=== PATIENT | female | born 1950 | race Hispanic/Latino ===

== ENCOUNTER 2019-02-26 09:41 | Inpatient (IN) | payer MEDICARE, OTHER ==
[2019-02-26 11:28] VITALS: BMI 13.6
[2019-02-26 11:53] LABS: #Lymphocytes 1.3 thou/uL (1.20-3.40); #Monocytes 0.3 thou/uL (0.11-0.59); #Neutrophils 6.4 thou/uL (1.40-6.50); %Basophils 0.5 % (0.0-1.0); %Eosinophils 0.3 % (0.0-10.0); %Lymphocytes 15.8 % (21.0-51.0); %Monocytes 4.2 % (0.0-10.0); %Neutrophils 79.2 % (42.0-75.0); Hemoglobin 9.1 g/dL (12.0-16.0); Mean Corpuscular HGB CONC 32.7 g/dL (32.0-36.0); Mean Corpuscular Hemoglobin 31.8 pg (27.0-31.0); Mean Corpuscular Volume 97.4 fL (78.0-98.0); Platelet Count 250 thou/uL (130-400); RBC Distribution Width 14.2 % (11.5-14.5); Red Blood Cell (RBC) Count 2.86 mill/uL (4.20-5.40); White Blood Cell (WBC) Count 8.1 thou/uL (4.8-10.8)
[2019-02-26 12:13] LABS: Phosphorus 2.7 mg/dL (2.3-4.7)
[2019-02-26 12:14] LABS: ALT (SGPT) 11 U/L (8-55); AST (SGOT) 49 U/L (5-34); Albumin 2.3 g/dL (3.4-4.8); Alkaline Phosphatase 174 U/L (40-110); Anion Gap 9 mmol/L (10-20); BUN (Urea Nitrogen) 17 mg/dL (9.8-20.1); Bilirubin, Total 0.5 mg/dL (0.2-1.2); Calc. Creatinine Clearance 15 mL/min (70-130); Carbon Dioxide 29 mmol/L (23-31); Chloride 100 mmol/L (98-107); Estimated GFR-MDRD 24; Globulin 4.2 g/dL (2.4-3.5); Glucose 216 mg/dL (80-115); Magnesium 1.8 mg/dL (1.6-2.6); Potassium 3.9 mmol/L (3.5-5.1); Protein, Total 6.5 g/dL (6.0-8.3); Sodium 134 mmol/L (136-145)
[2019-02-26] MEDS ORDERED: Ondansetron ODT 4 MG TAB SL PRN (12:59)
[2019-02-26] MEDS ORDERED: Lactated Ringer's 1,000 ML IV SCH (13:00)
[2019-02-26] MEDS ORDERED: Senokot S 8.6-50 MG TAB PO PRN (13:02)
[2019-02-26 13:09] LABS: Bilirubin Negative (Negative); Blood, Urine Negative (Negative); Clarity Clear (Clear); Glucose, Urine (Dipstick) 30 mg/dL (Negative); Leukocyte 250 Leu/uL (Negative); Nitrite Negative (Negative); Protein, Urine (Dipstick) 30 mg/dL (Neg-Trace); RBC/HPF 0-3 HPF (0-3); Urobilinogen Normal mg/dL (Less than 2)
[2019-02-26 13:13] LABS: Bacteria/HPF 1+ HPF (None Seen)
[2019-02-26 14:41] LABS: Syphilis Antibody Nonreactive (Nonreactive); Syphilis Antibody Index 0.12 S/CO (<1.00 Non-Reactive)
[2019-02-26 14:42] LABS: HBSAB Concentration 3.22 mIU/mL; HBSAg Index 0.12 S/CO (0-0.99); HIV (1/2) Antibody/Antigen Non-Reactive (NonReactive); HIV 1/2 INDEX 0.09 S/CO (<1.00); Hep B Surf AB Non-Reactive (NonReactive); Hep B Surf Ag Non-Reactive S/CO (NonReactive); Hep C IgG Ab Non-Reactive (NonReactive); Hep C Index 0.11 S/CO (0-0.79)
[2019-02-26] MEDS: Famotidine 20 MG TAB PO SCH (14:52)
--- NOTE | 2019-02-26 15:35 | PDOC.EVN ---
Addendum - Attending - Attending Attestation Date/Time: 02/26/19 4542 I personally evaluated the patient and discussed the management with Dr. Hankins I agree with the History, Examination, Assessment and Plan documented in his dictated H&P with any addition or exceptions noted below. In summary, patient is a 68 yo HF with a PMH of adenocarcinoma of the colon s/p colectomy 5 years ago. She states she had a repeat colonoscopy approximately 3 years ago which she states had a small polyp removed. She has not had repeat surveillance since. She also states she had been seen by Dr. No for evaluation of a stomach ulcer. She notes that over the past 2-3 years she has had decreased appetite, early satiety, and had noticed marked weight loss. Review of clinic records show a steady decline in her BMI from 18 in 2016 to 12 on her visit today which prompted her direct admission to the hospital. Of note , she was recently d/c from [facility] within the past few weeks for CAP. On exam, patient is tearful at times. She is cachetic appearing. Exam is otherwise unremarkable. A&P: Admit for severe malnutrition and evaluation of possible causes. Will check CBC, CMP, mag, phos, proalbumin, iron studies, B12, folate and TSH. EKG and TTE ordered. Given hx of GI cancer, CT chest/abd/pelv ordered. contrast not given due to poor renal function. Will also order cancer markers to see if there is an elevation. Pending results of initial evaluation, would consider GI consultation. Wound care and dietary also consulted. Current etiology not clear. Will also start IV fluids since mild volume depletion. Chronic problem management per Dr. Hankins's note.
[2019-02-26] MEDS ORDERED: Dextrose 5% in Water 1,000 ML IV PRN (15:42)
[2019-02-26] MEDS ORDERED: Dextrose 50% Abboject 50 ML SYRINGE SLOW IVP PRN (15:42)
[2019-02-26] MEDS ORDERED: HumaLOG 300 UNITS/3 ML VIAL SC PRN (15:42)
--- NOTE | 2019-02-26 16:10 | CT ---
Exam: Chest CT without contrast Abdomen CT without contrast Pelvic CT without contrast HISTORY: Weight loss.: Colon cancer with known metastases. Evaluate for extent of metastases. COMPARISON: None FINDINGS: Chest CT: Mediastinum: Limited evaluation due to lack of IV contrast. No obvious mass, lymphadenopathy hematoma HEART: No significant pericardial fluid. Scattered coronary calcifications Aorta: Atherosclerosis of a nonaneurysmal thoracic and abdominal aorta Trachea and central bronchi: Patent Pneumothorax: None Pleural spaces: Trace amount of left-sided pleural fluid. Right lung: Ill-defined groundglass opacities which may represent changes from atypical infection. Th ere is a slightly irregular marginated opacity in the right upper lobe which has a somewhat more discrete appearance. Focal area of infiltrate or developing malignancy/metastases cannot be excluded. Lesion measures 0.6 x 1.0 cm. There is a nodule with a peripheral halo groundglass opacification the right upper lobe. Nodule component measures 0.5 x 0.4 centimeters. Left lun.9 x 0.5 cm ill-defined groundglass opacity in the left lung apex. Additional groundglass opacities are noted. Linear opacities in the lingula and left lower lobe may represent subsegmental atelectasis Abdomen CT Limited evaluation of the solid organs by the lack of IV contrast. Grossly no solid organ abnormality Lymph nodes: No gastrohepatic, retrocrural or periportal lymphadenopathy. No evidence of enlarged lym ph nodes in the abdominal mesentery. Evaluation is limited by decreased visceral fat in the lack of IV contrast. Kidneys: Nonobstructing calcifications are noted. Bilaterally no obstructive uropathy. Alimentary canal: No evidence of small bowel obstruction. There is anastomosis of the right hemicolon and small bowel. No evidence of colon obstruction. Pelvic CT: Uterus and adnexal structures are grossly unremarkable. No pelvic mass, lymphadenopathy, f ree air or free fluid. Mild mucosal prominence of the urinary bladder is nonspecific and may be due to inadequate distention . Osseous structures: No lytic or blastic lesions IMPRESSION: Patchy groundglass opacities involving the lung parenchyma likely representing atypical infection. De veloping metastatic nodules cannot be entirely excluded. Correlate clinically. Transcribed Date/Time: 02/26/2019 4:35 PM
[2019-02-26] MEDS ORDERED: hydrALAZINE 20 MG/ML VIAL SLOW IVP SCH (17:30)
[2019-02-26] MEDS: Lactated Ringer's 1,000 ML IV SCH (18:08)
--- NOTE | 2019-02-26 19:27 | HP ---
RESIDENT: Jose Manuel Hankins DO HISTORY OF PRESENT ILLNESS: This is a 68-year-old female, who is seen in clinic with Dr. Nguyen this morning as a hospital followup. The patient was admitted approximately 1 week ago for community-acquired pneumonia and acute kidney injury at the [facility]. The patient was given antibiotics and fluids during her hospitalization and sent home to complete oral antibiotics. At followup, the patient was noted to have lost a significant amount of weight. This is consistent with the trend over the last 1 to 2 years, she has had a considerate amount of weight loss due to decreased p.o. intake. In clinic, BMI was 12. The patient was a direct admit from clinic due to severe malnutrition. She has previous colon cancer, status post total colectomy. Her most recent colonoscopy was approximately [address] No, where there was a polyp removed. The patient thinks that the reason for her decreased oral intake is due to early satiety and bloating. She denies any pain, nausea, vomiting, diarrhea, or blood in her stool. She does admit to black stools, however, she attributes this to her oral iron. The patient denies any syncopal episodes. She does complain of fatigue. PAST MEDICAL HISTORY: 1. CKD 4. 2. Protein-calorie malnutrition. 3. Type 2 diabetes. 4. Hypertension. 5. History of colon cancer, status post hemicolectomy. 6. Major depression. 7. Treated for ulcer approximately 7 months ago. PAST MEDICAL HISTORY: 1. Hemicolectomy. 2. Multiple colonoscopies. 3. EGD. 4. Right hip fracture ORIF in 2019. FAMILY HISTORY: Noncontributory. SOCIAL HISTORY: Denies alcohol, tobacco, or recreational drug use. ALLERGIES: NKDA CURRENT MEDICATION: 1. [place] 5/325 2. Benzonatate 100mg 3. Gabapentin 100 mg 4. Humulin N SSI TID 5. Mertazapine 7.5 mg 6. Lipitor 10mg 7. Tramadol 50 mg 8. Protonix 40 mg 9. FeSO4 325 mg REVIEW OF SYSTEMS: GENERAL: Denies fever or chills. Complains of fatigue. HEENT: Denies headaches, changes in vision, sore throat. CARDIOVASCULAR: Denies palpitations, chest pain. Complains of periodic peripheral edema. RESPIRATORY: Denies shortness of breath or cough. ABDOMEN: Denies nausea, vomiting, diarrhea, or constipation. Complains of black stools at times. Complains of early satiety and bloating with meals. NEUROLOGIC: Denies changes in vision, double vision, weakness, numbness, or tremors. VITAL SIGNS: Temperature 97.7, pulse 100, respiratory rate 16, O2 saturation 100% on room air, and blood pressure 118/67. LABORATORY DATA: Hemoglobin 9.1, hematocrit 27.9, white count 8.1, and platelets 251. Sodium 134, potassium 3.9, chloride 100, bicarb 29, BUN 17, creatinine 2.06, glucose 216, calcium 8.0, phosphorus 2.7, magnesium 1.8, T-bilirubin 5.9, AST 49 , ALT 11, alkaline phosphatase 174, total serum protein 6.5, and albumin 2.3, pre-albumin 16. TSH 2.38. UA shows protein 30, leukocyte esterase 250, wbc's 11 to 20, squamous 4 to 6, and urine bacteria 1+. PHYSICAL EXAMINATION: GENERAL: The patient is alert and oriented, in no acute distress. The patient is emaciated. HEENT: Normocephalic, atraumatic. CARDIOVASCULAR: Tachycardia. No murmur. No peripheral edema. RESPIRATORY: Clear to auscultation bilaterally. No increased work of breathing. ABDOMEN: Nontender. Normal bowel sounds. EXTREMITIES: Normal sensation and strength. No edema. NEUROLOGIC: No focal neurological deficits. ASSESSMENT AND PLAN: This is a 68-year-old female with severe protein-calorie malnutrition. 1. Severe protein-calorie malnutrition. Admit to hospital for observation and workup. Nutrition consult is pending. Prealbumin is low normal. We will have daily weights and full diet. Due to the fact that the patient does eat and has a history of cancer, we will order a CT scan to look for any masses or metastasis from previous colon cancer. Repeat comprehensive metabolic in the morning. Echo pending. Due to issues of early satiety, we will order an Helicobacter pylori stool antigen. 2. Normocytic anemia. Iron studies, B12, and folate pending. The patient appears to be hemodynamically stable. No indication for transfusion at this time. We will trend hemoglobin with morning labs. FOBT pending. 3. Acute kidney injury versus chronic kidney disease. We will have the patient on general IVF and monitor creatinine in the morning. 4. Possible urinary tract infection. The patient is not complaining of any symptoms. We will culture urine and treat if indicated. 5. Type 2 diabetes. The patient is only on sliding scale at home, we will re-initiate here. 6. Code: Full. 7. Diet: Consistent carbohydrate. 8. Prophylaxis: Lovenox and SCDs. 9. Disposition: The patient is currently stable. Length of stay pending further workup. Agree w/ documentation. See my event note for further details. Job ID: [id number] MTDD
[2019-02-26] MEDS: Acetaminophen 325 MG TAB PO PRN (20:48)
[2019-02-26] MEDS: Gabapentin 100 MG CAP PO SCH (20:49)
[2019-02-27] MEDS: Lactated Ringer's 1,000 ML IV SCH (02:41)
[2019-02-27] MEDS: Acetaminophen 325 MG TAB PO PRN ×2 (02:43→20:31)
--- NOTE | 2019-02-27 05:59 | PDOC.FM ---
- Subjective Subjective: Reports diarrhea today after taking oral contrast solution. Denies abdominal pain. Reports no appetite. Denies SOB. - Objective MAR Reviewed: Yes Vital Signs & Weight: Vital Signs (12 hours) Temp Pulse Resp BP BP BP Pulse Ox 02/26/19 23:30 98.5 F 104 H 18 132/82 97 02/26/19 19:54 99.3 F 109 H 18 134/97 H 99 02/26/19 18:23 100 147/82 H 02/26/19 18:00 147/82 H Weight Weight 34.983 kg I&O: 02/25/19 02/26/19 02/27/19 06:59 06:59 06:59 Intake Total 1072 Balance 1072 Result Diagrams: 02/27/19 05:52 03/01/19 11:18 Phys Exam - Physical Examination Constitutional: NAD Thin, curled up in ball in bed. HEENT: moist MMs Neck: supple Respiratory: no wheezing, clear to auscultation bilateral Cardiovascular: RRR, no significant murmur Gastrointestinal: soft, non-tender, positive bowel sounds Musculoskeletal: no edema Neurological: moves all 4 limbs Psychiatric: normal affect, A&O x 3 Deviation from normal: Bruising and exoriations bilateral arms Dx/Plan - Plan Plan: Severe protein calorie malnutrition - Nutrition consulted. Pt may need PEG tube placement. Has seen Dr No in the past. - Requesting records from the MED - Low/normal prealbumin - Daily wts, full diet - CT with infections vs mets - Continue daily labs - Ordered BNP, ESR/CRP - Start Mirtazepine qHS - Will keep track of percentage of meals eaten - Echo ordered - H pylori neg Patchy ground glass nodules on CT - Infection vs mets. Recently treated for pneumonia and hx of colon cancer so either is likely. - Recommend follow up CT in 4 weeks Normocytic Anemia - Iron studies, B12 & folate nml - Ordered peripheral smear, Haptoglobin and LDH - FOBT neg Diarrhea - Likely 2/2 contrast - Checking stool studies - Imodium PRN CKD - Continue IVF, monitor labs - CrCl 14 - Ordered Urine protein/Cr - Consulted Dr Bird, nephrology. Apprec recs Possible UTI - Awaiting culture prior to tx DMII - SSI, full diet due to malnutrition Hx of Colon Cancer - Requested records from the MED for most recent CEA/tumor markers Code Status: FULL DVT ppx: Lovenox Addendum - Attending - Attending Attestation Date/Time: 02/27/19 1022 I personally evaluated the patient and discussed the management with Dr. Alvarez I agree with the History, Examination, Assessment and Plan documented above with any addition or exceptions noted below. HD#1 Patient now with diarrhea after contrast media. Imaging reviewed. Workup pending for failure to thrive. Appears to be related to poor caloric intake. Patient also appears to have a mood disorder. Infectious workup negative. Inflammatory markers added to make sure not related to vasculitis. Need records from GI. Patient has been scoped multiple times. Discussed concern for poor intake. Will continue to monitor portions and caloric intake. Will start appetite stimulate. Need to continue to address possible need for external nutrition - PEG Patient needs rehab or SNIF. not likely able to continue to manage at home. Need to follow up to help with dispo planning. Rebeca
[2019-02-27 06:08] LABS: #Basophils 0.1 thou/uL (0.0-0.2); #Eosinphils 0.2 thou/uL (0.0-0.7); #Lymphocytes 2.5 thou/uL (1.20-3.40); #Monocytes 0.4 thou/uL (0.11-0.59); #Neutrophils 4.4 thou/uL (1.40-6.50); %Basophils 1.3 % (0.0-1.0); %Lymphocytes 32.4 % (21.0-51.0); %Monocytes 5.2 % (0.0-10.0); Hemoglobin 7.8 g/dL (12.0-16.0); Mean Corpuscular Hemoglobin 32.1 pg (27.0-31.0); Mean Corpuscular Volume 97.4 fL (78.0-98.0); Mean Platelet Volume 9.3 fL (7.4-10.4); Platelet Count 202 thou/uL (130-400); RBC Distribution Width 14.1 % (11.5-14.5); Red Blood Cell (RBC) Count 2.44 mill/uL (4.20-5.40); White Blood Cell (WBC) Count 7.5 thou/uL (4.8-10.8)
[2019-02-27 06:31] LABS: ALT (SGPT) 9 U/L (8-55); AST (SGOT) 34 U/L (5-34); Albumin 1.9 g/dL (3.4-4.8); Alkaline Phosphatase 142 U/L (40-110); Anion Gap 8 mmol/L (10-20); BUN (Urea Nitrogen) 14 mg/dL (9.8-20.1); Bilirubin, Total 0.3 mg/dL (0.2-1.2); Calc. Creatinine Clearance 15 mL/min (70-130); Calcium 7.6 mg/dL (7.8-10.44); Carbon Dioxide 28 mmol/L (23-31); Chloride 103 mmol/L (98-107); Estimated GFR-MDRD 24; Globulin 3.5 g/dL (2.4-3.5); Glucose 168 mg/dL (80-115); Iron 81 ug/dL (50-170); Iron Binding Capacity, Total 74 mcg/dL (265-497); Protein, Total 5.4 g/dL (6.0-8.3); Sodium 135 mmol/L (136-145)
[2019-02-27 06:56] LABS: Ferritin 258.27 ng/mL (10-291)
[2019-02-27 07:59] LABS: Band 3 % (5-11); Lymphocytes 39 % (21-51)
[2019-02-27 08:00] LABS: Platelet Morphology Comment Appears Adequate; Polychromasia SLIGHT = 2-3 cells (100X) (0-2/hpf)
[2019-02-27] MEDS: Gabapentin 100 MG CAP PO SCH ×3 (09:10→20:32)
[2019-02-27] MEDS ORDERED: Loperamide HCl 1 MG/7.5 ML UDCUP PO PRN (12:21)
[2019-02-27] MEDS ORDERED: Loperamide HCl 2 MG CAP PO PRN (12:27)
--- NOTE | 2019-02-27 12:37 | CON ---
DATE OF CONSULTATION: REASON FOR CONSULTATION: Chronic kidney disease. HISTORY OF PRESENT ILLNESS: This is a very pleasant 68-year-old female with a baseline creatinine 1.39 in 2016, which increased to 2.05 this admission. The patient was admitted yesterday for protein calorie malnutrition. The patient has been losing weight. The patient had a CAT scan of the chest, abdomen, and pelvis without contrast. No obstructive uropathy was seen. PAST MEDICAL HISTORY: Significant for CKD stage 4, protein calorie malnutrition, diabetes mellitus, hypertension, history of colon cancer, hemicolectomy, depression, history of multiple colonoscopy, EGD, history of kidney stones, and history of right hip fracture. FAMILY HISTORY: Negative for ESRD. ALLERGIES: REVIEWED. HOME MEDICATIONS: List reviewed. HOSPITAL MEDICATIONS: List reviewed. REVIEW OF SYSTEMS: A 15-point review of system was performed and negative except for positives noted above. GENERAL: HEAD: NECK: No swelling or lumps. NOSE: No epistaxis or discharge. EYES: No diplopia or pain. RESPIRATORY: CARDIOVASCULAR: GASTROINTESTINAL: /SPEECH/LANGUAGE THERAPIST: MUSCULOSKELETAL: No joint pain. NEUROPSYCHIATIC SYSTEMS: No suicidal ideation. No ideation. SKIN: Denies any rash or ulcer. CONSTITUTIONAL: No fever or chills. PHYSICAL EXAMINATION: CONSTITUTIONAL: The patient is awake and alert. VITAL SIGNS: Afebrile, pulse 75, breathing 16, and blood pressure was 145/97. GENERAL APPEARANCE AND MENTAL STATUS: Fair. HEAD/NECK: Normocephalic. Atraumatic. EYES: EOMI. No deformity. EARS: Clear. No ulcers. NOSE: Intact. No lesions. MOUTH: Clear. No discharge. THROAT: Clear. No exudate. LUNGS: Clear. No crackles. CARDIAC: S1, S2. No rub. ABDOMEN: Benign. Bowel sounds positive. GENITALIA/RECTUM: Mcnamara absent. BACK/EXTREMITIES: Edema 0+. NEUROLOGICAL: Alert and motor intact. SKIN: LYMPHATICS: LABORATORY DATA: Labs reviewed. ASSESSMENT AND PLAN: 1. Acute kidney injury with chronic kidney disease stage 4, could be chronic hypertensive nephrosclerosis versus diabetic nephropathy. We will follow renal function closely. The patient does have a history of nephrolithiasis, so she did have some sort of concentrating issues within kidney, would recommend hydration. 2. Anemia, would recommend Epogen therapy. 3. Medications based on GFR appropriate, I will order a 24-hour urine creatinine clearance. 4. Hypertension, stable. Job ID: [id number]
[2019-02-27 13:16] LABS: Anion Gap 10 mmol/L (10-20); BUN (Urea Nitrogen) 16 mg/dL (9.8-20.1); Calc. Creatinine Clearance 15 mL/min (70-130); Carbon Dioxide 27 mmol/L (23-31); Chloride 100 mmol/L (98-107); Estimated GFR-MDRD 25; Glucose 284 mg/dL (80-115); Magnesium 1.7 mg/dL (1.6-2.6); Potassium 4.1 mmol/L (3.5-5.1); Sodium 133 mmol/L (136-145)
[2019-02-27] MEDS: Potassium Chloride 10 MEQ in Dextrose 5%-Lactated Ringers 1,000 ML IV SCH ×2 (15:27→20:34)
[2019-02-27] MEDS: Famotidine 20 MG TAB PO SCH (15:31)
[2019-02-27] MEDS: Mirtazapine 15 MG Soltab PO SCH (20:32)
[2019-02-28 00:39] LABS: Creatinine, Urine Less than 20.00 mg/dL (47-110); Protein, Urine Random Quant 15 mg/dL (1-14)
[2019-02-28] MEDS: Potassium Chloride 10 MEQ in Dextrose 5%-Lactated Ringers 1,000 ML IV SCH (00:42)
[2019-02-28] MEDS: HumaLOG 300 UNITS/3 ML VIAL SC PRN ×2 (05:24→16:41)
[2019-02-28] MEDS: Lactated Ringer's 1,000 ML IV SCH ×2 (05:24→14:37)
--- NOTE | 2019-02-28 08:07 | PDOC.FM ---
- Subjective Subjective: Doing well. Diarrhea has resolved. Denies abdominal pain, nausea. - Objective MAR Reviewed: Yes Vital Signs & Weight: Vital Signs (12 hours) Temp Pulse Resp BP BP Pulse Ox 02/28/19 07:56 97.9 F 99 12 115/71 96 02/28/19 05:20 98.2 F 102 H 18 141/79 H 98 02/28/19 00:12 98.5 F 101 H 18 134/77 96 02/27/19 20:30 158/88 H 98 02/27/19 20:15 98.2 F 105 H 19 98 Weight Admit Weight 34.983 kg Weight 34.983 kg I&O: 02/27/19 02/28/19 03/01/19 06:59 06:59 06:59 Intake Total 1072 2250 Balance 1072 2250 Result Diagrams: 02/27/19 05:52 03/01/19 11:18 Dx/Plan - Plan Plan: Severe protein calorie malnutrition - Nutrition consulted, recommends CC diet 1500cal, renal low protein with Suplena BID. Pt may need PEG tube placement. Has seen Dr No in the past. - Requested records from the MED - Low/normal prealbumin. BNP, ESR/CRP normal. CT with infections vs mets. H pylori neg - Daily wts, full diet, Continue daily labs - Continue Mirtazepine qHS - Will keep track of percentage of meals eaten - Echo: 60-65%, diastolic dysfunction Patchy ground glass nodules on CT - Infection vs mets. Recently treated for pneumonia and hx of colon cancer so either is likely. - Recommend follow up CT in 4 weeks Normocytic Anemia - Iron studies, B12, LDH & folate nml - FOBT neg - Nephrology rec Epogen Diarrhea - Likely 2/2 contrast - C diff neg, other stool studies pending - Imodium PRN CKD - Continue IVF, monitor labs - CrCl 14. Urine protein 15. Cr <20 - Consulted Dr Bird, nephrology. Apprec recs - Diet renal low protein Possible UTI - Awaiting culture prior to tx DMII - SSI, CC diet 1500cal Hx of Colon Cancer - Requested records from the MED for most recent CEA/tumor markers Code Status: FULL DVT ppx: Lovenox Addendum - Attending - Attending Attestation Date/Time: 02/28/19 1027 I personally evaluated the patient and discussed the management with Dr. Alvarez I agree with the History, Examination, Assessment and Plan documented above with any addition or exceptions noted below. HD#2 No acute changes overnight. Still very aggravated -concerned mental illness contributing. No longer having diarrhea. Minimal oral food intake. Nutrition following. Continue medication. Inflammatory and infectious causes negative. Awaiting dispo planning. Patient would benefit from inpatient. Follow closely. Rebeca
[2019-02-28] MEDS: Gabapentin 100 MG CAP PO SCH ×3 (08:43→20:45)
[2019-02-28] MEDS: Acetaminophen 325 MG TAB PO PRN ×2 (10:19→20:56)
[2019-02-28 11:04] LABS: Anion Gap 10 mmol/L (10-20); BUN (Urea Nitrogen) 16 mg/dL (9.8-20.1); Calc. Creatinine Clearance 16 mL/min (70-130); Calcium 7.9 mg/dL (7.8-10.44); Carbon Dioxide 26 mmol/L (23-31); Chloride 106 mmol/L (98-107); Estimated GFR-MDRD 27; Glucose 183 mg/dL (80-115); Potassium 4.1 mmol/L (3.5-5.1); Sodium 138 mmol/L (136-145)
[2019-02-28] MEDS: Famotidine 20 MG TAB PO SCH (14:24)
--- NOTE | 2019-02-28 15:07 | PRG ---
DATE OF SERVICE: 02/28/2019 SUBJECTIVE: This is a 68-year-old female being seen for acute kidney injury. The patient denied nausea, vomiting, or chest pain. OBJECTIVE: See above. CONSTITUTIONAL: Awake, alert, in no acute distress. VITAL SIGNS: Pulse 99, breathing 16, blood pressure 115/71. GENERAL APPEARANCE AND MENTAL STATUS: Fair. HEAD/NECK: Normocephalic. Atraumatic. EYES: EOMI. No deformity. EARS: Clear. No ulcers. NOSE: Intact. No lesions. MOUTH: Clear. No discharge. THROAT: Clear. No exudate. LUNGS: Clear. No crackles. CARDIAC: S1, S2. No rub. ABDOMEN: Benign. Bowel sounds positive. GENITALIA/RECTUM: Mcnamara absent. BACK/EXTREMITIES: Edema 0+. NEUROLOGICAL: Alert and motor intact. SKIN: LYMPHATICS: LABORATORY DATA: Reviewed. ASSESSMENT AND PLAN: 1. Acute kidney injury with chronic kidney disease, improved. 2. Hypertension, stable. 3. Anemia, stable. 4. Medication based on GFR appropriate. No indication for dialysis. Job ID: [id number]
[2019-02-28] MEDS ORDERED: EPOETIN ALFA-EPBX (ESRD) 10,000 UNIT/ML VIAL IVP SCH (18:15)
[2019-02-28] MEDS: Loperamide HCl 2 MG CAP PO PRN (20:45)
[2019-02-28] MEDS: Mirtazapine 15 MG Soltab PO SCH (20:45)
[2019-03-01] MEDS: Loperamide HCl 2 MG CAP PO PRN ×2 (01:15→05:25)
[2019-03-01] MEDS: Lactated Ringer's 1,000 ML IV SCH (01:16)
--- NOTE | 2019-03-01 06:21 | PDOC.FM ---
- Subjective Subjective: No overnight events. Reports she did not sleep well. Reports constipation. Ate 25% of breakfast, 75% of lunch, and 50% of dinner yesterday. - Objective MAR Reviewed: Yes Vital Signs & Weight: Vital Signs (12 hours) Temp Pulse Resp BP Pulse Ox 03/01/19 04:00 98.0 F 102 H 16 135/77 99 03/01/19 00:41 98.4 F 105 H 16 127/79 98 02/28/19 21:17 98.8 F 107 H 16 131/72 98 Weight Admit Weight 34.983 kg Weight 34.983 kg I&O: 02/27/19 02/28/19 03/01/19 06:59 06:59 06:59 Intake Total 1072 2250 1680 Balance 1072 2250 1680 Result Diagrams: 02/27/19 05:52 02/28/19 10:31 Phys Exam - Physical Examination Constitutional: NAD thin HEENT: moist MMs Neck: supple Respiratory: no wheezing, clear to auscultation bilateral Cardiovascular: RRR Gastrointestinal: soft, non-tender, positive bowel sounds Musculoskeletal: no edema Neurological: moves all 4 limbs Psychiatric: normal affect, A&O x 3 Skin: no rash Dx/Plan - Plan Plan: Severe protein calorie malnutrition - Nutrition consulted, recommends CC diet 1500cal, renal low protein with Suplena BID. Pt may need PEG tube placement. Has seen Dr No in the past. - Requested records from the MED - Low/normal prealbumin. BNP, ESR/CRP normal. CT with infections vs mets. H pylori neg - Daily wts, full diet, Continue daily labs - Continue Mirtazepine qHS, Megace - Echo: 60-65%, diastolic dysfunction Patchy ground glass nodules on CT - Infection vs mets. Recently treated for pneumonia and hx of colon cancer so either is likely. - Recommend follow up CT in 4 weeks Normocytic Anemia - Iron studies, B12, LDH & folate nml - FOBT neg - Nephrology rec Epogen Diarrhea - Likely 2/2 contrast - Stool studies neg - Imodium PRN KIANA on CKD - Urine protein 15. Cr <20 - Consulted Dr Bird, nephrology. Apprec recs - Diet renal low protein - Continue to monitor Possible UTI - Awaiting culture prior to tx DMII - SSI, CC diet 1500cal Hx of Colon Cancer - Requested records from the [facility] for most recent CEA/tumor markers Code Status: FULL DVT ppx: Lovenox
[2019-03-01] MEDS: Gabapentin 100 MG CAP PO SCH ×2 (08:42→14:34)
[2019-03-01] MEDS ORDERED: Insulin Glargine 10 UNITS in Pre-Filled Syringe 1 EACH SC SCH (09:00)
[2019-03-01] MEDS ORDERED: Megestrol Acetate 40 MG TAB PO SCH (09:00)
[2019-03-01 11:49] LABS: Anion Gap 10 mmol/L (10-20); BUN (Urea Nitrogen) 16 mg/dL (9.8-20.1); Calc. Creatinine Clearance 15 mL/min (70-130); Calcium 7.4 mg/dL (7.8-10.44); Carbon Dioxide 24 mmol/L (23-31); Chloride 108 mmol/L (98-107); Estimated GFR-MDRD 25; Glucose 211 mg/dL (80-115); Potassium 4.6 mmol/L (3.5-5.1); Sodium 137 mmol/L (136-145)
--- NOTE | 2019-03-01 12:01 | PRG ---
DATE OF SERVICE: 03/01/2019 SUBJECTIVE: This is a 68-year-old female being seen for acute kidney injury. The patient denies nausea, vomiting, or chest pain. OBJECTIVE: CONSTITUTIONAL: The patient is awake. VITAL SIGNS: Afebrile, pulse 88, breathing 16, blood pressure 135/77. GENERAL APPEARANCE AND MENTAL STATUS: Fair. HEAD/NECK: Normocephalic. Atraumatic. EYES: EOMI. No deformity. EARS: Clear. No ulcers. NOSE: Intact. No lesions. MOUTH: Clear. No discharge. THROAT: Clear. No exudate. LUNGS: Clear. No crackles. CARDIAC: S1, S2. No rub. ABDOMEN: Benign. Bowel sounds positive. GENITALIA/RECTUM: Mcnamara absent. BACK/EXTREMITIES: Edema 0+. NEUROLOGICAL: Alert and motor intact. SKIN: LYMPHATICS: LABORATORY DATA: Pending. ASSESSMENT AND PLAN: 1. Acute kidney injury with chronic kidney disease, stage 4, stable. Recheck labs. 2. Hypertension, stable. 3. Anemia, stable. 4. Acute tubular necrosis, improved. Job ID: [id number]
[2019-03-01] MEDS: HumaLOG 300 UNITS/3 ML VIAL SC PRN (13:01)
[2019-03-01] MEDS: Famotidine 20 MG TAB PO SCH (14:34)
--- NOTE | 2019-03-01 14:37 | PRG ---
DATE OF SERVICE: 03/01/2019 Please see the note from Dr. Alvarez, for which I agree. The patient is in the hospital for severe malnutrition, still a lot of weight loss, was not eating, has diabetes, major depression, and history of colon cancer. BMI was low as 13 at one point in time. Questionable on CT if she has some patchy ground nodules, infections versus METs. Now is on Megace and Remeron, and it sounds like she is eating a little bit better. I am keeping her on sliding scale insulin. Renal is involved too because her creatinine is elevated and low GFR. Job ID: [id number]
[2019-03-01 16:19] VITALS: BP 156/89; TEMP 97.6
--- NOTE | 2019-03-01 17:03 | DIS ---
DATE OF ADMISSION: 02/26/2019 DATE OF DISCHARGE: 03/01/2019 RESIDENT: Geovanna Alvarez, PGY-1. ADMITTING ATTENDING: Nahid Joshua MD. DISCHARGE ATTENDING: Charo Mathis MD. CONSULT: Pulmonology. PROCEDURE: 1. Her chest, abdominal, pelvis CT on 02/26/2019, patchy ground-glass opacities involving lung parenchyma likely representing atypical infection. Developing metastatic nodules cannot be entirely excluded. 2. Echocardiogram 02/27/2019, EF 60% to 65% grade 1/3 diastolic dysfunction. Mitral annular calcification. Mild mitral and tricuspid regurgitation. PRIMARY DIAGNOSES: 1. Severe protein calorie malnutrition. 2. Patchy ground-glass nodules on CT. 3. Normocytic anemia. 4. CKD. SECONDARY DIAGNOSES: 1. Diarrhea. 2. Type 2 diabetes. 3. History of colon cancer. DISCHARGE MEDICATIONS: 1. Epoetin bernadette-epbx 46247 units twice weekly. 2. Pepcid 20 mg one daily. 3. Neurontin 100 mg t.i.d. 4. Loperamide q.4 hours p.r.n. 5. Megace 40 mg daily. 6. Mirtazapine 15 mg at bedtime. 7. Zofran 4 mg q.6 hours p.r.n. 8. Senokot 2 tablets b.i.d. p.r.n. 9. Lantus 10 units daily. New medication; 1. Gabapentin 100 mg t.i.d. HISTORY OF PRESENT ILLNESS/HOSPITAL COURSE: Ms. Mann is a 68-year-old female with past medical history of colon cancer and type 2 diabetes, who was a direct admit by Dr. Nguyen at [facility]. She was recently admitted to the [facility] approximately a week prior for community-acquired pneumonia and KIANA. She was treated with antibiotics and IV fluids during hospitalization, sent home to complete oral antibiotics and had Followup. The patient was noted to have lost a significant amount of weight with a BMI of 12. Over the last 1 to 2 years, her weight has slowly trended down due to lack of appetite. She has a history of colectomy. The most recent colonoscopy [address] No with a polyp removed. No reported symptoms of early satiety or bloating. Labs at admission, notable for hemoglobin 9.1, creatinine 2.06. Creatinine clearance by Cockcroft Gault calculator 14. UA with protein 30, leukocyte esterase 250, white blood cells 11-20, squamous 4-60 , and 1+ bacteria. Urine culture was positive for Klebsiella and Enterobacter but only 25,000-50,000 cfu/ml therefore this was not treated as she was asymptomatic. In regard to her severe protein calorie malnutrition, dietitian was consulted who recommended carb consistent 1500 calorie diet with Suplena b.i.d. for supplementation. The patient reports drinking Muscle Milk at home and enjoys drinking any shakes. However, it is recommended the patient be on a low-protein diet due to her kidney function. A CT scan obtained to look for metastases from prior colon cancer and was found to have atypical pneumonia versus mets in the lung. This was discussed with the radiologist, who recommended a followup CT scan in 4 weeks. She had a [id number] pre-albumin, normal BNP, ESR, CRP, and negative H pylori. She was started on Megace and mirtazapine. Echo showed 60% to 65% EF with 1/3 diastolic dysfunction. Discussed possibility of PEG tube with the patient and she would not want a PEG tube. In regard to normocytic anemia, iron studies, B12, LDH, folate were normal. FOBT was negative. Nephrology was consulted, who [place] [address] units twice a week. Peripheral smear showed normocytic normochromatic anemia. Haptoglobin less than 10. In regard to the patient's KIANA on CKD, she did have some improvement in kidney function with IV fluids. Initial creatinine 2.06, discharge creatinine 1.98, but her creatinine clearance by Cockcroft Gault was only 14. As stated prior, Dr. Bird was consulted, who recommended low-protein diet and Procrit and close monitoring of renal function. She will need to follow up with a machine repairer maintenance outpatient. The patient did experience some diarrhea during hospitalization. Stool studies were negative and this is likely secondary to the oral contrast she consumed for CT scan. This was treated with Imodium as needed. She does have type 2 diabetes, sliding scale insulin was used. However, blood sugars were still uncontrolled, so she was started on Lantus 10 units daily. The patient was on glipizide at home; however, she was not treated with glipizide during hospitalization. With her history of colon cancer, we requested records from the [facility], but did not receive them prior to discharge of her CEA tumor markers. DISPOSITION: Stable. DISCHARGE INSTRUCTIONS: 1. Location: [facility]. 2. Diet: Carb consistent 1500 calorie with renal low-protein. Suplena b.i.d. 3. Activity: No restrictions. 4. Followup: Follow up with PCP, Dr. Nguyen, after discharge from rehab. Job ID: [id number] MTDD
--- NOTE | 2019-03-04 10:13 | EKG ---
Test Reason : Blood Pressure : / mmHG Vent. Rate : 114 BPM Atrial Rate : 114 BPM P-R Int : 138 ms QRS Dur : 074 ms QT Int : 356 ms P-R-T Axes : 075 -14 075 degrees QTc Int : 490 ms Sinus tachycardia Low voltage QRS Septal infarct (cited on or before 27-JUL-1994) Cannot rule out Inferior infarct , age undetermined Abnormal ECG Confirmed by WEN CHEN MD ([id number]) on 03/04/2019 10:12:45 AM Referred By: NICKOLAS Confirmed By:WEN CHEN MD
[2019-03-04] MEDS ORDERED: EPOETIN ALFA-EPBX (ESRD) 10,000 UNIT/ML VIAL IVP SCH (12:00)
[2019-03-04] MEDS ORDERED: EPOETIN ALFA-EPBX (ESRD) 10,000 UNIT/ML VIAL SC SCH (12:00)
== END 2019-03-01 17:19 | DRG 682 ==
LOC: 2SE 09:58 → T4-B 02-27 10:58
PROVIDERS: ADMIT Family Medicine; ATTEND Family Medicine
DX: N17.0 Acute kidney failure with tubular necrosis (principal); E43 Unspecified severe protein-calorie malnutrition; K52.1 Toxic gastroenteritis and colitis; Z68.1 Body mass index [BMI] 19.9 or less, adult; N18.4 Chronic kidney disease, stage 4 (severe); R91.1 Solitary pulmonary nodule; E11.65 Type 2 diabetes mellitus with hyperglycemia; F32.9 Major depressive disorder, single episode, unspecified; I12.9 Hypertensive chronic kidney disease with stage 1 through stage 4 chronic kidney disease, or unspecified chronic kidney disease; E11.22 Type 2 diabetes mellitus with diabetic chronic kidney disease; D63.1 Anemia in chronic kidney disease; T50.8X5A Adverse effect of diagnostic agents, initial encounter; Z79.899 Other long term (current) drug therapy; Z79.4 Long term (current) use of insulin; Z85.038 Personal history of other malignant neoplasm of large intestine
CPT/HCPCS: 36415; 36416; 71250; 74177; 80048; 80053; 82274; 82570; 82575; 82607; 82728; 82746; 83010; 83540; 83550; 83615; 83735; 83880; 84100; 84134; 84156; 84443; 85025; 85060; 85652; 86140; 86706; 86780; 86803; 87045; 87046; 87077; 87086; 87186; 87324; 87338; 87340; 87389; 87427; 87449; 93005; 93010; 93306; J1815; J3480; J7121; Q5105; S0179

== ENCOUNTER 2019-03-03 01:31 | Inpatient (IN) | payer MEDICARE, OTHER ==
[2019-03-03 02:41] LABS: Bacteria/HPF 3+ HPF (None Seen); Bilirubin Negative (Negative); Blood, Urine Negative (Negative); Clarity Turbid (Clear); Glucose, Urine (Dipstick) Normal (Negative); Leukocyte 250 Leu/uL (Negative); Nitrite Negative (Negative); Protein, Urine (Dipstick) 10 mg/dL (Neg-Trace); Squamous Epithelial 0-3 HPF (0-3); Urobilinogen Normal mg/dL (Less than 2); WBC/HPF 21-50 HPF (0-3); Yeast-Budding 1+ HPF (None Seen)
[2019-03-03 02:42] LABS: RBC/HPF 0-3 HPF (0-3)
[2019-03-03 03:02] LABS: Hemoglobin 8.2 g/dL (12.0-16.0); Mean Corpuscular HGB CONC 30.8 g/dL (32.0-36.0); Mean Corpuscular Hemoglobin 30.4 pg (27.0-31.0); Mean Platelet Volume 9.3 fL (7.4-10.4); Platelet Count 265 thou/uL (130-400); RBC Distribution Width 14.5 % (11.5-14.5); Red Blood Cell (RBC) Count 2.69 mill/uL (4.20-5.40); White Blood Cell (WBC) Count 20.3 thou/uL (4.8-10.8)
[2019-03-03] MEDS ORDERED: cloNIDine 0.1 MG TAB ONE (03:19)
[2019-03-03] MEDS ORDERED: Cefepime 2 GM VIAL ONE (03:19)
[2019-03-03 03:21] LABS: ALT (SGPT) 10 U/L (8-55); AST (SGOT) 20 U/L (5-34); Alkaline Phosphatase 115 U/L (40-110); Anion Gap 12 mmol/L (10-20); BUN (Urea Nitrogen) 24 mg/dL (9.8-20.1); Bilirubin, Total 0.2 mg/dL (0.2-1.2); Calc. Creatinine Clearance 0 mL/min (70-130); Calcium 7.2 mg/dL (7.8-10.44); Carbon Dioxide 23 mmol/L (23-31); Chloride 105 mmol/L (98-107); Estimated GFR-MDRD 20; Globulin 3.5 g/dL (2.4-3.5); Glucose 105 mg/dL (80-115); Magnesium 1.4 mg/dL (1.6-2.6); Potassium 5.2 mmol/L (3.5-5.1); Protein, Total 5.5 g/dL (6.0-8.3); Sodium 135 mmol/L (136-145)
[2019-03-03 03:47] LABS: Band 3 % (5-11); Lymphocytes 12 % (21-51); MDiff Complete? YES; Monocytes 2 % (0-10); Neutrophil 83 % (42-75)
--- NOTE | 2019-03-03 04:51 | PDOC.FPRHP ---
- History of Present Illness Chief Complaint: fall and confusion History of Present Illness: 68 y/o F with a pmhx of colon ca, DM II, normocytic anemia, and recent hospitalization for pneumonia and severe protein calorie malnutrition. Pt was discharged to [facility] recently. Overnight she was found down with report given to us of her being confused. Pt states she did not hurt anything, and denies any pain, HENLEY, or current confusion. She states she was trying to get up to urinate, and had trouble with her strength to do so. Pt denies any hematuria, dysuria, hesitancy, frequency or urge. Pt reports continued diarrhea since her discharge from the hospital that worsened yesterday morning. Denies N/V/Abd pain. Denies CP, cough, SOB. Pt's urine culture from recent Hx was + for Klebsiella and Enterobacter. UA shows evidence of Acute UTI. Pt was tachycardic rate in 120's upon ED evaluation. - Allergies/Adverse Reactions Allergies Allergy/AdvReac Type Severity Reaction Status Date / Time No Known Drug Allergies Allergy Verified 02/26/19 12:58 - Home Medications Medication Instructions Recorded Confirmed Type Benzonatate 100 mg PO Q8HR PRN 02/27/19 03/03/19 History Magnesium Oxide [Mag-Oxide] 400 mg PO DAILY 02/27/19 03/03/19 History Gabapentin [Neurontin] 100 mg PO TID cap 03/01/19 03/03/19 Rx Loperamide HCl [Imodium] 2 mg PO Q4H PRN cap 03/01/19 03/03/19 Rx Megestrol Acetate [Megace] 40 mg PO DAILY tab 03/01/19 03/03/19 Rx Mirtazapine [Remeron Soltab] 15 mg PO HS tab 03/01/19 03/03/19 Rx Sennosides/Docusate Sodium 2 tab PO BID PRN tab 03/01/19 03/03/19 Rx [Senokot S] Acetaminophen 325 mg PO Q4H PRN 03/03/19 03/03/19 History Acetaminophen 650 mg PO Q4H PRN 03/03/19 03/03/19 History Cefepime [Maxipime] 1 gm IVPB 0300 vial 03/03/19 Rx Darbepoetin Hitesh in Polysorbat 60 mcg SC Q7D 03/03/19 03/03/19 History [Aranesp] Famotidine [Pepcid] 20 mg PO Q24HR tab 03/03/19 Rx Fluconazole [Diflucan] 100 mg PO DAILY tab 03/03/19 Rx Insulin Glargine [Lantus Vial] 5 units SC QAM vial 03/03/19 Rx Polyethylene Glycol 3350 17 gm PO DAILY 03/03/19 03/03/19 History - History PMHx: Colon CA, Insulin Dependent DM II, CKD stage 4, Protein-calorie malnutrition, HTN, MDD, PUD PSHx: hemicolectomy, ORIF R hip 2019. FHx: non-contributory Social: drinks 1-2 glasses of wine a couple of times a week. Denies current tobacco use, quit smoking "years ago." Denies illicit drug use. - Review of Systems General: reports: fatigue. denies: fever/chills Eyes: denies: eye pain, vision changes ENT: denies: nasal congestion, rhinorrhea Respiratory: denies: cough, shortness of breath, exercise intolerance Cardiovascular: denies: chest pain, palpitation, edema Gastrointestinal: reports: diarrhea. denies: nausea, vomiting, constipation, abdominal pain, GI bleeding Genitourinary: denies: incontinence, dysuria, polyuria, discharge Skin: denies: rashes, lesions, jaundice Musculoskeletal: denies: pain, swelling Neurological: reports: weakness. denies: syncope - Vital signs BP: 124/74 HR: 119 RR: 18 Tmax: 98.9 Pox: 98%% on RA Wt: 45.36 kg - Physical Exam Constitutional: NAD, awake, alert and oriented -Constitutional: cachectic HEENT: normocephalic and atraumatic, PERRLA, EOMI, conjunctiva clear, no scleral icterus, grossly normal vision, grossly normal hearing, MMM, oropharynx clear Neck: supple, FROM, trachea midline, no JVD Heart: pulses present, no edema -Heart: Tachycardic, S3 present. Lungs: CTAB, no respiratory distress, good air movement, no rales/rhonchi, no wheezing, no retractions Abdomen: soft, non-tender, bowel sounds present, no masses/distention, no hernias Musculoskeletal: ROM grossly normal -Musculoskeletal: atrophic major muscle groups. Neurological: no focal deficit, normal sensation Skin: no rash/lesions, good turgor, capillary refill <2 seconds, no jaundice -Skin: pale skin. Heme/Lymphatic: no unusual bruising or bleeding, no purpura, no petechia -Psychiatric: Pt tearful on exam. FMR H&P: Results - Labs Result Diagrams: 03/03/19 02:47 03/03/19 02:46 Lab results: WBC 20.3 thou/uL (4.8-10.8) H 03/03/19 02:47 Hgb 8.2 g/dL (12.0-16.0) L 03/03/19 02:47 Hct 26.6 % (36.0-47.0) L 03/03/19 02:47 MCV 99.0 fL (78.0-98.0) H 03/03/19 02:47 Plt Count 265 thou/uL (130-400) 03/03/19 02:47 Band Neuts % (Manual) 3 % (5-11) L 03/03/19 02:47 Sodium 135 mmol/L (136-145) L 03/03/19 02:46 Potassium 5.2 mmol/L (3.5-5.1) H 03/03/19 02:46 Chloride 105 mmol/L (98-107) 03/03/19 02:46 Carbon Dioxide 23 mmol/L (23-31) 03/03/19 02:46 BUN 24 mg/dL (9.8-20.1) H 03/03/19 02:46 Creatinine 2.43 mg/dL (0.6-1.1) H 03/03/19 02:46 Glucose 105 mg/dL (80-115) 03/03/19 02:46 Lactic Acid 2.4 mmol/L (0.5-2.2) H 03/03/19 02:47 Calcium 7.2 mg/dL (7.8-10.44) L 03/03/19 02:46 Total Bilirubin 0.2 mg/dL (0.2-1.2) 03/03/19 02:46 AST 20 U/L (5-34) 03/03/19 02:46 ALT 10 U/L (8-55) 03/03/19 02:46 Alkaline Phosphatase 115 U/L (40-110) H 03/03/19 02:46 Ammonia 29 umol/L (18-72) 03/03/19 02:48 Serum Total Protein 5.5 g/dL (6.0-8.3) L 03/03/19 02:46 Albumin 2.0 g/dL (3.4-4.8) L 03/03/19 02:46 Urine Ketones Negative mg/dL (Negative) 03/03/19 02:05 Urine Blood Negative (Negative) 03/03/19 02:05 Urine Nitrite Negative (Negative) 03/03/19 02:05 Ur Leukocyte Esterase 250 Kristina/uL (Negative) A 03/03/19 02:05 Urine RBC 0-3 HPF (0-3) 03/03/19 02:05 Urine WBC 21-50 HPF (0-3) A 03/03/19 02:05 Ur Squamous Epith Cells 0-3 HPF (0-3) 03/03/19 02:05 Urine Bacteria 3+ HPF (None Seen) A 03/03/19 02:05 Microbiology 03/03/19 02:37 Nasal swab Influenza Types A,B Direct EIA - Final neg 02/28/19 16:00 Stool Stool Culture - Final neg 02/28/19 16:00 Stool Campylobacter Antigen Assay - Final neg 02/28/19 16:00 Stool Shiga Toxin Test - Final neg 02/27/19 06:26 Stool Stool Occult Blood (KHOI) - Final neg 02/27/19 06:22 Stool Helicobacter pylori Antigen - Final neg 02/27/19 06:22 Stool C. difficile GDH Antigen & Toxins - Final neg 02/26/19 12:50 Urine clean catch Urine Culture - Final: Klebsiella pneumoniae ssp pneu Enterobacter cloacae complex - Radiology Interpretation CT scan - head Status: pending Chest x-ray Status: pending FMR H&P: A/P - Problem List (1) UTI (urinary tract infection) due to Enterococcus Current Visit: Yes Status: Acute Code(s): N39.0 - URINARY TRACT INFECTION, SITE NOT SPECIFIED; B95.2 - ENTEROCOCCUS THE CAUSE OF DISEASES CLASSIFIED ELSEWHERE (2) Sepsis Current Visit: Yes Status: Acute Code(s): A41.9 - SEPSIS, UNSPECIFIED ORGANISM (3) Protein-calorie malnutrition, severe Current Visit: Yes Status: Acute Code(s): E43 - UNSPECIFIED SEVERE PROTEIN- CALORIE MALNUTRITION (4) DM type 2 (diabetes mellitus, type 2) Current Visit: Yes Status: Acute (5) Acute kidney injury superimposed on CKD Current Visit: Yes Status: Acute Code(s): N17.9 - ACUTE KIDNEY FAILURE, UNSPECIFIED; N18.9 - CHRONIC KIDNEY DISEASE, UNSPECIFIED (6) Normocytic anemia Current Visit: Yes Status: Acute Code(s): D64.9 - ANEMIA, UNSPECIFIED (7) History of colon cancer Current Visit: No Status: Chronic Code(s): Z85.038 - PERSONAL HISTORY OF MALIGNANT NEOPLASM OF LARGE INTESTINE (8) Leukocytosis Current Visit: Yes Status: Acute Code(s): D72.829 - ELEVATED WHITE BLOOD CELL COUNT, UNSPECIFIED (9) Hypomagnesemia Current Visit: Yes Status: Acute Code(s): E83.42 - HYPOMAGNESEMIA - Plan 68 y/o F admitted for inpatient evaluation and treatment of Sepsis 2/2 UTI. 1. Sepsis 2/2 UTI - Lactic acid 2.4, WBC 20.3, HR 120s - UA ccx: klebsiella and enterobacter resulted on 02/26. Blood and Urine cultures collected in ED. - Cefepime 2 g IV given in ED, renally dosed at 1 g Q24H daily, thereafter. - IVF 80 mL/hr NS - leukocytosis of 20.3 wbc 2. Acute Complicated UTI - Prior hospitalization ccx grew klebsiella and enterobacter - Sensitive to cefepime - Continue cefepime and IVF's 3. Severe protein calorie malnutrition - Previous admission recommendations from dietary: CC diet 1500cal, renal low protein with Suplena BID. - Labs on previous admission: Low/normal prealbumin. BNP, ESR/CRP normal. CT with infections vs mets. H pylori neg - Daily wts, full diet - Continue Mirtazepine qHS, Megace - Echo: 60-65%, diastolic dysfunction 4. Patchy ground glass nodules on CT - Infection vs mets. Recently treated for pneumonia and hx of colon cancer so either is likely. - Recommend follow up CT in 4 weeks 5. Normocytic Anemia - recent Iron studies, B12, LDH & folate nml - recent FOBT neg - Nephrology rec Epogen on last admission 6. Diarrhea - Likely 2/2 contrast - Stool studies neg on prior admission - Imodium PRN 7. Hypomagnesemia - Replaced Magnesium. 8. KIANA on CKD - Low protein renal diet - Cr. 2.43, GFR 20 - Gentle IVF hydration 9. DMII - SSI, CC diet 1500cal 10. Hx of Colon Cancer - Colonoscopy 5 years ago with polypectomy Code Status: Full Code Diet: CC, low protein renal Dietary consult DVT ppx: heparin TID Dispo: Stable, admitted to medical inpatient for Sepsis 2/2 UTI. FMR H&P: Upper Level - Pertinent history 68 y/o F presents from [facility] due to a fall. She fell out of her bed and they said she hit her head, but she denies this. She reports she has been feeling more weak lately and has had increased urinary frequency. She is mildly confused in her orientation questions, but overall AOx3. Denies dysuria, hematuria, suprapubic pain, fever. The ED physician had report of a fever yesterday. - Pertinent findings BP: 131/74, Pulse: 115, Resp: 18, Temp: 99.0 (Oral), O2 sat: 98 on Room Air PE: Gen - alert, oriented, mildly confused and cachectic CV - Tachycardic, regular rhythm Resp - CTAB, no wheezes Abd - soft, NTTP Labs: WBC 20.3, Hb 8.2, K 5.2, Mag 1.4, BUN 24, Cr 2.43, LA 2.4, UA 3+ bacteria , 1+ yeast - Plan Date/Time: 03/03/19 0442 I, Hollie Carbajal MD, PGY-3, have evaluated this patient and agree with findings/ plan as outlined by application development intern resident. Pertinent changes/additions are listed here. 1. Acute Complicated UTI Pt with complicated UTI. Prior UCx on 02/26 grew klebsiella and enterobacter. s/ p 1 dose cefepime -Will continue cefepime, consider switching to meropenem if no clinical improvement -Urine Cx 2. KIANA on CKDIV Likely 2/2 UTI -Will give 500mL bolus of fluids and monitor closely 3. Fall Pt fell and denies hitting her head. CT brain read pending. Denies any pain or complaints -PT/OT -Will likely need to return to [facility] upon discharge due to deconditioning 4. Hypomagnesemia -Will replete and monitor 5. Elevated Lactic Acid Will give IVF and repeat 6. Cachexia with severe protein-calorie malnutrition -Consult dietitian 7. Normocytic anemia Likely anemia of chronic disease. No indication for transfusion at this time. 8. DM2 -Continue home meds -Accuchecks -SSI Dispo: Admit to medical LOS: Likely 2 days Addendum - Attending - Attending Attestation Date/Time: 03/03/19 1967 I personally evaluated the patient and discussed the management with Dr. Henry. I agree with the History, Examination, Assessment and Plan documented above with any addition or exceptions noted below. The patient was sent to the ER from [facility] rehab for a fall. She was also found to have a uti. She has been started on cefepime based on recent urine culture results. Pt met sepsis criteria. She is feeling better and is requesting to go back to inpt rehab. Cultures are pending. Continue antibiotics.
[2019-03-03] MEDS ORDERED: Dextrose 50% Abboject 50 ML SYRINGE SLOW IVP PRN (05:32)
[2019-03-03] MEDS ORDERED: HumaLOG 300 UNITS/3 ML VIAL SC PRN ×2 (05:32)
[2019-03-03] MEDS ORDERED: Dextrose 5% in Water 1,000 ML IV PRN (05:32)
[2019-03-03 06:25] VITALS: BMI 14.9
[2019-03-03] MEDS ORDERED: Magnesium Sulfate 2 GM in Sodium Chloride 0.9% 100 ML IVPB SCH (06:30)
[2019-03-03] MEDS ORDERED: Magnesium 2 GM/50 ML 2 GM in Premix Bag 1 BAG IVPB SCH (06:30)
[2019-03-03] MEDS ORDERED: Ondansetron ODT 4 MG TAB PO PRN (06:36)
[2019-03-03] MEDS ORDERED: Loperamide HCl 2 MG CAP PO PRN (06:36)
[2019-03-03] MEDS ORDERED: Senokot S 8.6-50 MG TAB PO PRN (06:36)
[2019-03-03] MEDS ORDERED: Sodium Chloride 0.9% 1,000 ML IV SCH (06:36)
--- NOTE | 2019-03-03 07:27 | CT ---
PRELIMINARY REPORT/[facility]/EMERGENCY AFTER HOURS PROCEDURE PROCEDURE INFORMATION: Exam: CT Head Without Contrast Exam date and time: 03/03/2019 3:08 AM Clinical history: 68 years old, female; Headache; Patient HX: Additional history obtained from snf, additional history obtained from EMS, [id number] presents to ED from [facility] by EMS after fall. EMS reports PT was sleeping at [facility], and fell out of bed and hit head; PT does not remember. PT denies any pain, no complaints other than diarrhea. PT is confused, reports that the year is 1718, difficulty recalling where she lives then incorrectly reports. PT is agitated, reports she does not w ant to be in er because she has been in the doctor/hospital multiple times recently. Reports she did have a fever yesterday. Ermd explained associated risks with leaving er without being evaluated; PT was then unable to repeat what was said to her. PT is not competent enough to leave ama. TECHNIQUE: Imaging protocol: Computed tomography of the head without contrast. COMPARISON: No relevant prior studies available. FINDINGS: Brain: No acute hemorrhage. Patchy white matter hypodensities are nonspecific but may be seen in small vessel chronic ischemic changes. No mass effect. Ventricles: No ventriculomegaly. Bones/joints: No acute fracture. Sinuses: Moderate sphenoid sinuses opacification. No fluid levels. Mastoid air cells: Visualized mastoid air cells are well aerated. Soft tissues: Unremarkable. IMPRESSION: No acute intracranial abnormality. Thank you for allowing us to participate in the care of your patient. Dictated and Authenticated by: Usha Garcia MD 03/03/2019 4:02 AM Central Time ([place] & [place]) FINAL REPORT HEAD CT WITHOUT CONTRAST: DATE: 02/23/2019 COMPARISON: None. HISTORY: Headache, fall. FINDINGS: I agree with the preliminary report. There is partial opacification of bilateral sphenoid s inuses. No displaced calvarial fracture, intracranial hemorrhage, midline shift, or mass effect. Periventricular hypodensity noted, evidence of small vessel disease. IMPRESSION: No intracranial hemorrhage or displaced calvarial fracture. Code QA. Transcribed Date/Time: 03/03/2019 7:43 AM
[2019-03-03 07:32] LABS: Lactic Acid 2.3 mmol/L (0.5-2.2)
--- NOTE | 2019-03-03 08:24 | RAD ---
XR Chest 1 View Portable History: Tachycardia Comparison: Chest radiograph 2018. CT February 26, 2019 Findings: Increased right basilar left basilar airspace opacities. There is a nodule in the right upp er lobe. Mild elevation left hemidiaphragm. Likely gas within the gastric fundus and less likely free intraperitoneal air. Mild biapical pleural scarring. Cardiac silhouette is within normal limits. Mild background lung hyperinflation. No acute osseous abnormality. Impression: Findings concerning for worsening bibasilar pneumonia.
[2019-03-03] MEDS ORDERED: Magnesium Oxide 400 MG TAB PO SCH (09:00)
[2019-03-03] MEDS ORDERED: Non-Formulary Item 1 EACH (Magnesium Oxide [Mag-Oxide] 400 MG) PO SCH (09:00)
[2019-03-03] MEDS ORDERED: Famotidine 20 MG TAB PO SCH (09:00)
[2019-03-03] MEDS ORDERED: Insulin Glargine 5 UNITS in Pre-Filled Syringe 1 EACH SC SCH (09:00)
[2019-03-03] MEDS ORDERED: Heparin 5,000 UNITS/ML VIAL SC SCH (09:00)
[2019-03-03] MEDS ORDERED: Gabapentin 100 MG CAP PO SCH (09:00)
[2019-03-03] MEDS ORDERED: Fluconazole 100 MG TAB PO SCH (09:00)
[2019-03-03] MEDS ORDERED: Megestrol Acetate 40 MG TAB PO SCH (09:00)
[2019-03-03] MEDS ORDERED: Lactated Ringer's 250 ML IV SCH (10:30)
[2019-03-03] MEDS ORDERED: EPOETIN ALFA-EPBX (ESRD) 10,000 UNIT/ML VIAL SC SCH (12:00)
[2019-03-03 12:20] LABS: Lactic Acid 2.3 mmol/L (0.5-2.2)
[2019-03-03 12:22] VITALS: TEMP 99.1
[2019-03-03 12:35] VITALS: BP 115/65
[2019-03-03] MEDS ORDERED: Mirtazapine 15 MG Soltab PO SCH (21:00)
[2019-03-04] MEDS ORDERED: Cefepime 1 GM in Sodium Chloride 0.9% 100 ML IVPB SCH (03:00)
--- NOTE | 2019-03-04 12:01 | DIS ---
DATE OF ADMISSION: 03/03/2019 DATE OF DISCHARGE: 03/03/2019 RESIDENT: Geovanna Alvarez MD, PGY-2. ADMITTING ATTENDING: Jany Lucero MD DISCHARGE ATTENDING: Jany Lucero MD CONSULTS: None. PROCEDURES PERFORMED: Brain CT 03/03/2019, no intracranial hemorrhage or displaced calvarial. Chest x-ray 03/03/2019, findings concerning for worsening bibasilar pneumonia. PRIMARY DIAGNOSIS: Sepsis secondary to urinary tract infection. SECONDARY DIAGNOSES: 1. Severe protein-calorie malnutrition. 2. Patchy ground glass nodules on CT. 3. Normocytic anemia. 4. Diarrhea. 5. Hypomagnesemia. 6. Acute kidney injury on chronic kidney disease. 7. Type 2 diabetes. 8. History of colon cancer. DISCHARGE MEDICATIONS: 1. Tylenol 325 mg q.4 hours p.r.n. 2. Benzonatate 100 mg q.8 hours p.r.n. 3. Cefepime 1 g IV daily. 4. Aranesp 60 mcg q.7 days. 5. Pepcid 20 mg q.24 hours. 6. Diflucan 100 mg daily. 7. Neurontin 100 mg t.i.d. 8. Lantus 5 units q.a.m. 9. Imodium 2 mg q.4 hours. 10. Mag-Ox 400 mg daily. 11. Megace 40 mg daily. 12. Mirtazapine 15 mg at bedtime. 13. MiraLAX 17 g daily p.r.n. 14. Senokot two tabs b.i.d. p.r.n. DISCONTINUED MEDICATIONS: None. HISTORY OF PRESENT ILLNESS/HOSPITAL COURSE: Ms. Mann is a 68-year-old female with extensive past medical history, who was recently discharged on 03/01/2019. Please see discharge summary for more details. The patient returned because she had fallen out of bed and needed head CT. She did hit her head. This was normal and showed no acute bleed. UA was consistent with U.T.I. The patient was started on cefepime based on prior sensitivities of Klebsiella and Enterobacter that were both sensitive to cefepime. The patient was tachycardic, however, she was tachycardic throughout her last hospitalization. She met sepsis criteria due to leukocytosis and tachycardia. Urine culture last admission did grow Klebsiella pneumoniae enterobacter but due to organisms only growing 25-50,000 CFU/mL. This was not treated and patient was also asymptomatic. Repeat urine culture on 03/03/2019 grew E coli, 50-75 CFU/mL. We are awaiting sensitivities. The patient is stable to be discharged back to rehab and will call the physician caring for the patient with the sensitivity results to narrow antibiotics. DISPOSITION: Stable. DISCHARGE INSTRUCTIONS: [facility] 2. Diet: Carb consistent 1500 renal low protein. Suplena b.i.d. 3. Activity: No restrictions. 4. Followup: Follow up with [facility] rehab doctor. Job ID: [id number] MTDD
== END 2019-03-03 14:45 | DRG 871 ==
LOC: ERS 01:31 → SURG B 03:56
PROVIDERS: ADMIT Emergency Medicine; ATTEND Emergency Medicine
DX: A41.4 Sepsis due to anaerobes (principal); E43 Unspecified severe protein-calorie malnutrition; N39.0 Urinary tract infection, site not specified; K52.1 Toxic gastroenteritis and colitis; N17.9 Acute kidney failure, unspecified; R64 Cachexia; Z68.1 Body mass index [BMI] 19.9 or less, adult; T50.8X5A Adverse effect of diagnostic agents, initial encounter; E83.42 Hypomagnesemia; N18.9 Chronic kidney disease, unspecified; E11.22 Type 2 diabetes mellitus with diabetic chronic kidney disease; D63.1 Anemia in chronic kidney disease; R91.8 Other nonspecific abnormal finding of lung field; Z87.891 Personal history of nicotine dependence; Z79.4 Long term (current) use of insulin; Z79.899 Other long term (current) drug therapy
CPT/HCPCS: 36415; 36416; 70450; 71045; 81003; 81015; 82140; 83605; 83735; 84443; 84484; 87040; 87077; 87086; 87149; 87186; 87804; 93005; 96361; 96365; J0692; J1644; J1815; J3475; S0179

== ENCOUNTER 2019-03-09 08:21 | Outpatient (CLI) | payer MEDICARE, OTHER ==
[2019-03-09 11:11] LABS: Hemoglobin 7.5 g/dL (12.0-16.0); Mean Corpuscular HGB CONC 32.2 g/dL (32.0-36.0); Platelet Count 405 thou/uL (130-400); RBC Distribution Width 18.8 % (11.5-14.5); Red Blood Cell (RBC) Count 2.21 mill/uL (4.20-5.40); White Blood Cell (WBC) Count 14.9 thou/uL (4.8-10.8)
[2019-03-09 11:43] LABS: Lymphocytes 13 % (21-51); MDiff Complete? YES; Monocytes 8 % (0-10); Neutrophil 77 % (42-75); Nucleated RBC 1 % (0); Platelet Morphology Comment Appears Increased; Reactive Lymphocytes 1 % (0-10); Vacuoles SLIGHT
--- NOTE | 2019-03-09 13:29 | RAD ---
XR Chest 1 View Portable History: Leukocytosis. Comparison: Radiograph March 03, 2019 Findings: Numerous multifocal airspace opacities. Moderate effusions. Mild pulmonary edema. No pneumo thorax. No acute osseous abnormality. Impression: Multifocal pneumonia superimposed on volume overload.
== END 2019-03-09 08:22 ==
LOC: SJX 08:21
DX: N39.0 Urinary tract infection, site not specified (principal); E43 Unspecified severe protein-calorie malnutrition; J18.9 Pneumonia, unspecified organism
CPT/HCPCS: 71045

== ENCOUNTER 2019-07-10 19:25 | Inpatient (IN) | payer MEDICARE, OTHER ==
[2019-07-10 20:59] LABS: #Eosinphils 0.4 thou/uL (0.0-0.7); #Lymphocytes 2.3 thou/uL (1.20-3.40); #Monocytes 0.8 thou/uL (0.11-0.59); #Neutrophils 12.6 thou/uL (1.40-6.50); %Basophils 0.2 % (0.0-1.0); %Eosinophils 2.3 % (0.0-10.0); %Lymphocytes 14.4 % (21.0-51.0); %Monocytes 4.8 % (0.0-10.0); %Neutrophils 78.3 % (42.0-75.0); Hemoglobin 5.9 g/dL (12.0-16.0); Mean Corpuscular HGB CONC 32.2 g/dL (32.0-36.0); Mean Corpuscular Hemoglobin 31.4 pg (27.0-31.0); Mean Corpuscular Volume 97.3 fL (78.0-98.0); Mean Platelet Volume 7.9 fL (7.4-10.4); Platelet Count 389 thou/uL (130-400); RBC Distribution Width 12.8 % (11.5-14.5); Red Blood Cell (RBC) Count 1.89 mill/uL (4.20-5.40)
--- NOTE | 2019-07-10 21:18 | RAD ---
EXAM: CHEST ONE VIEW HISTORY: Dyspnea. COMPARISON: 03/03/2019 FINDINGS: Bibasilar pleural and parenchymal lung changes are present likely due to bilateral pleural effusions and atelectasis. However, there is greater degree of parenchymal changes at the right lung base, and pneumonia at the right lung base should be considered. Mild right perihilar interstitial and patc hy densities are also present. Cardiac silhouette is partially obscured due to parenchymal changes at the right lung base. No other interval change. IMPRESSION: 1. Findings worrisome for pneumonia in the right perihilar region and right lung base. Follow-up to [facility] is recommended. 2. Small bilateral pleural effusions and atelectasis greater on the right.
[2019-07-10 21:30] LABS: ALT (SGPT) 11 U/L (8-55); AST (SGOT) 20 U/L (5-34); Albumin 2.6 g/dL (3.4-4.8); Alkaline Phosphatase 77 U/L (40-110); BUN (Urea Nitrogen) 79 mg/dL (9.8-20.1); Bilirubin, Total 0.2 mg/dL (0.2-1.2); Calc. Creatinine Clearance 0 mL/min (70-130); Calcium 7.4 mg/dL (7.8-10.44); Carbon Dioxide 13 mmol/L (23-31); Estimated GFR-MDRD 9; Globulin 3.9 g/dL (2.4-3.5); Glucose 117 mg/dL (80-115); Iron 28 ug/dL (50-170); Iron Binding Capacity, Total 199 mcg/dL (265-497); Magnesium 1.8 mg/dL (1.6-2.6); Phosphorus 7.9 mg/dL (2.3-4.7); Protein, Total 6.5 g/dL (6.0-8.3)
[2019-07-10] MEDS ORDERED: cefTRIAXone\\ROCEPHIN 1 GM VIAL ONE (21:43)
[2019-07-10] MEDS ORDERED: Azithromycin 500 MG VIAL ONE (21:43)
[2019-07-10] MEDS ORDERED: Azithromycin 250 MG TAB ONE (21:44)
[2019-07-10 22:13] LABS: Anion Gap 16 mmol/L (10-20); Chloride 114 mmol/L (98-107); Potassium 4.6 mmol/L (3.5-5.1); Sodium 138 mmol/L (136-145)
[2019-07-10 22:18] LABS: Iron 25 ug/dL (50-170); Iron Binding Capacity, Total 189 mcg/dL (265-497)
--- NOTE | 2019-07-10 23:42 | PDOC.FPRHP ---
- History of Present Illness Chief Complaint: Abnormal Labs, Wheezing History of Present Illness: Patient is a 68 yo female who presents for admission due to abnormal labwork at clinic on 07/07/2019. She was found to have a Hgb of 6.2 and a GFR of 11, BUN of 66, Cr of 2.76. She additionally reports that for the past 2 weeks she has felt increasingly weak with some possible shortness of breath with exertion & lying flat. She also states for past 2-3 days she has had increased wheezing which has kept her up all day and night, causing her a lot of discomfort, along with constant chills but denies any fever. She feels her legs have become increasingly swollen over the past few weeks or so. She reports that she usually urinates once a day, but for past 2 days has urinated 2x/day. Her most recent hospitalization was in February 2019 for Sepsis secondary to a UTI. Upon discharge from that admission her GFR was 17, Cr 2.76, BUN 26. She has refused considering any form of dialysis in the past. ED Course: Patient was given Lasix 40 mg IVP, Rocephin 1 g IV, Azithromycin 500 mg IV. Was found on CXR to have an area concerning for pneumonia in right perihilar and right lung base, additionally had small bilateral effusions and area of atelectasis on right base. Was found on labwork to have WBC of 16, K 4.6, Phos 7.9, Mag 1.8, BUN 79, Cr 4.90, GFR of 9, BNP of 266. Iron studies revealed low Fe 25, low TIBC 189, low iron saturation 13%. - Allergies/Adverse Reactions Allergies Allergy/AdvReac Type Severity Reaction Status Date / Time No Known Drug Allergies Allergy Verified 07/11/19 01:41 - Home Medications Medication Instructions Recorded Confirmed Type Benzonatate 100 mg PO Q8HR PRN 02/27/19 03/03/19 History Magnesium Oxide [Mag-Oxide] 400 mg PO DAILY 02/27/19 03/03/19 History Gabapentin [Neurontin] 100 mg PO TID cap 03/01/19 03/03/19 Rx Loperamide HCl [Imodium] 2 mg PO Q4H PRN cap 03/01/19 03/03/19 Rx Megestrol Acetate [Megace] 40 mg PO DAILY tab 03/01/19 03/03/19 Rx Mirtazapine [Remeron Soltab] 15 mg PO HS tab 03/01/19 03/03/19 Rx Sennosides/Docusate Sodium 2 tab PO BID PRN tab 03/01/19 03/03/19 Rx [Senokot S] Acetaminophen 325 mg PO Q4H PRN 03/03/19 03/03/19 History Acetaminophen 650 mg PO Q4H PRN 03/03/19 03/03/19 History Cefepime [Maxipime] 1 gm IVPB 0300 vial 03/03/19 Rx Darbepoetin Hitesh in Polysorbat 60 mcg SC Q7D 03/03/19 03/03/19 History [Aranesp] Famotidine [Pepcid] 20 mg PO Q24HR tab 03/03/19 Rx Fluconazole [Diflucan] 100 mg PO DAILY tab 03/03/19 Rx Insulin Glargine [Lantus Vial] 5 units SC QAM vial 03/03/19 Rx Polyethylene Glycol 3350 17 gm PO DAILY 03/03/19 03/03/19 History Comments: *above home med list has not been confirmed* - History PMHx: Colon CA, Insulin Dependent DM II, CKD stage 4, Protein-calorie malnutrition, HTN, MDD, PUD PSHx: hemicolectomy, ORIF R hip 2019. FHx: multiple family members with diabetes Social: used to drinks 1-2 glasses of wine a couple of times a week but quit about 2-3 months ago. Denies current tobacco use, quit smoking "20 or so years ago." Denies illicit drug use. - Review of Systems General: reports: fever/chills (chills), fatigue. denies: weight/appetite/ sleep changes Eyes: denies: vision changes ENT: denies: nasal congestion Respiratory: reports: shortness of breath. denies: cough, congestion Cardiovascular: reports: edema, orthopnea. denies: chest pain, palpitation Gastrointestinal: denies: nausea, vomiting, diarrhea, constipation, abdominal pain Genitourinary: denies: dysuria Skin: denies: rashes, lesions, jaundice Musculoskeletal: denies: pain, arthritis/arthralgias Neurological: reports: weakness. denies: syncope - Vital signs BP: 146/66 HR: 104 RR: 16 Tmax: 98.9F Pox: 99% on RA Wt: 46 kg - Physical Exam Constitutional: NAD, awake, alert and oriented, well developed HEENT: normocephalic and atraumatic, EOMI, conjunctiva clear, no scleral icterus , grossly normal vision, grossly normal hearing, MMM Neck: supple, FROM, no JVD Chest: no-tender to palpation, no lesions Heart: RRR, normal S1/S2, no murmurs/rubs/gallops, pulses present -Heart: 1+ pitting edema in bilateral lower extremities Lungs: no respiratory distress, no retractions -Lungs: Decreased air movement with scattered crackles in bilateral lung bases. Occasional expiratory wheeze in RUL. Abdomen: soft, non-tender, bowel sounds present, no masses/distention Musculoskeletal: normal structure, normal tone, ROM grossly normal Neurological: no focal deficit, normal sensation Skin: no rash/lesions, no jaundice -Skin: appears pale with capillary refill time ~3 sec Heme/Lymphatic: no unusual bruising or bleeding Psychiatric: normal mood and affect, intact recent and remote memory FMR H&P: Results - Labs Result Diagrams: 07/11/19 01:03 07/10/19 20:46 Lab results: WBC 16.0 thou/uL (4.8-10.8) H 07/10/19 20:46 Hgb 5.9 g/dL (12.0-16.0) L* 07/10/19 20:46 Hct 18.4 % (36.0-47.0) L 07/10/19 20:46 MCV 97.3 fL (78.0-98.0) 07/10/19 20:46 Plt Count 389 thou/uL (130-400) 07/10/19 20:46 Neutrophils % 78.3 % (42.0-75.0) H 07/10/19 20:46 Sodium 138 mmol/L (136-145) 07/10/19 20:46 Potassium 4.6 mmol/L (3.5-5.1) 07/10/19 20:46 Chloride 114 mmol/L (98-107) H 07/10/19 20:46 Carbon Dioxide 13 mmol/L (23-31) L 07/10/19 20:46 BUN 79 mg/dL (9.8-20.1) H 07/10/19 20:46 Creatinine 4.90 mg/dL (0.6-1.1) H 07/10/19 20:46 Glucose 117 mg/dL (80-115) H 07/10/19 20:46 Calcium 7.4 mg/dL (7.8-10.44) L 07/10/19 20:46 Total Bilirubin 0.2 mg/dL (0.2-1.2) 07/10/19 20:46 AST 20 U/L (5-34) 07/10/19 20:46 ALT 11 U/L (8-55) 07/10/19 20:46 Alkaline Phosphatase 77 U/L (40-110) 07/10/19 20:46 B-Natriuretic Peptide 266.5 pg/mL (0-100) H 07/10/19 20:46 Serum Total Protein 6.5 g/dL (6.0-8.3) 07/10/19 20:46 Albumin 2.6 g/dL (3.4-4.8) L 07/10/19 20:46 FMR H&P: A/P - Problem List (1) Pneumonia Current Visit: Yes Status: Acute Code(s): J18.9 - PNEUMONIA, UNSPECIFIED ORGANISM Qualifiers: Pneumonia type: due to unspecified organism Laterality: right Lung location: unspecified part of lung Qualified Code(s): J18.9 - Pneumonia, unspecified organism (2) Acute kidney injury superimposed on CKD Current Visit: No Status: Acute Code(s): N17.9 - ACUTE KIDNEY FAILURE, UNSPECIFIED; N18.9 - CHRONIC KIDNEY DISEASE, UNSPECIFIED (3) DM type 2 (diabetes mellitus, type 2) Current Visit: No Status: Acute Qualifiers: Diabetes mellitus computer terminal operator insulin use: with fci use Diabetes mellitus complication status: with kidney complications Diabetes mellitus complication detail: with chronic kidney disease Chronic kidney disease stage : stage 4 (severe) Qualified Code(s): E11.22 - Type 2 diabetes mellitus with diabetic chronic kidney disease; N18.4 - Chronic kidney disease, stage 4 (severe ); Z79.4 - MCC (current) use of insulin (4) Normocytic anemia Current Visit: No Status: Acute Code(s): D64.9 - ANEMIA, UNSPECIFIED (5) Sepsis Current Visit: No Status: Acute Code(s): A41.9 - SEPSIS, UNSPECIFIED ORGANISM Qualifiers: Sepsis type: sepsis due to unspecified organism Sepsis acute organ dysfunction status: with acute organ dysfunction Severe sepsis acute organ dysfunction type: acute renal failure Acute renal failure type: unspecified Severe sepsis shock status: without septic shock Qualified Code(s): A41.9 - Sepsis, unspecified organism; R65.20 - Severe sepsis without septic shock; N17.9 - Acute kidney failure, unspecified - Plan Patient is a 69 yo Female who presents with abnormal labs and wheezing: #Sepsis 2/2 Pneumonia -CXR with findings suggestive of PNA in right perihilar & lung base -sepsis criteria met with admission tachycardia to 104 and WBC 16,000 -s/p 1 g Rocephin & 500 mg Azithromycin in ED @ approx. 2200, will plan to continue q24 hr -Consider Pulm consult in AM d/t recent findings on CT scan per clinic records of eosinophilic pneumonia, may need bronchoscopy -check Procal -CBC, CMP in AM #KIANA on CKD4 versus now CKD5 -admission BUN 79, Cr 4.90, GFR 9 -up from baseline of BUN 26, Cr 2.76, GFR 17 -consult Nephro-Dr. Bills in AM, appreciate recs -patient has refused dialysis in past, but is now open to it if it extends her life -Mag 1.8, Phos 7.9, K 4.6 -monitor AM CMP #Normocytic Anemia -suspect anemia of chronic disease as primary cause -admission Hgb 5.9/Hct 18.4 -s/p 2 units pRBCs given by ED (started 07/09, finish 07/10) -will order 4 hr post transfusion H/H -monitor AM CBC -order FOBT screen -Iron studies showed Fe 25, TIBC 189, iron sat 13% -check B12 and Folate #Diastolic HF -recent ECHO in Feb 2019 showed diastolic dysfunction, EF 60-65% -BNP 266 this admission (up from 94 in Feb 2019) -s/p 1 dose of Lasix 40 mg IV -will continue to monitor on exam #HTN -continue home meds -vitals q4h, monitor I/Os #IDDM -continue home meds: Lantus 8 units (equiv. of home 70/30 dose) -Accuchecks ACHS -diabetes hypoglycemia protocol in place -mild SSI and bedtime correctional scale ordered Diet: CC 1800 VTE: Heparin 5000 units TID Code status: Cardiac only-pt okay with compressions, IV meds but is NOT okay with defibrillation; does not want to be intubated, discussed with patient and her Dispo: Stable, admitted to inpatient on medical unit. Plan to consult Nephrology & Pulm in AM. Anticipate LOS >48 hrs. FMR H&P: Upper Level - Plan Date/Time: 07/10/19 3147 IMichelle DO, have evaluated this patient and agree with findings/plan as outlined by manager internship resident. Pertinent changes/additions are listed here. Pt is a 69 yo F who I see in clinic with PMH of CKD4 and T2DM with recent KIANA d/ t hyperglycemia presenting to ED at my request after having labs drawn on Sunday showing Hgb 6.2 and BUN/Cr of 66/4.36. She also reports recent development of wheezing and dyspnea. She reports stable LE edema and denies fever. At our last visit her insulin was titrated up and she reports BS have been more controlled 120's to 180's. She sees Dr. Bird regularly for CKD. In regard to anemia, she denies hematochezia, melena, or hematemesis. She reports good diet since addition of Megace. She denies alcohol use. She has hx of PUD and colon cancer and is to follow up with GI next month to establish care with new provider since her GI doctor retired. She is due for colonoscopy. VS: 134/64, P103, R19, T98.2, O299%RA PE: Gen: thin, facial puffiness, NAD HEENT: Moist MM, no LAD, no JVD Heart: RRR, no murmurs or extra sounds. Distal pulses 2+ Lungs: CTAB, no wheezing. No increased work of breathing Abd: soft, nontender, BS+ Ext: no cyanosis or edema Skin: no rashes or wounds present Psych: AOx3, withdrawn Pertinent Labs/Imaging: WBC 16, RBC 1.89, Hgb 5.9, Hct 18.4, MCV 97.3, Neutrophils 78%, Na 138, K4.6, Cl 114, CO2 13, BUN 79, Cr 4.9, glucose 117, Corrected Ca 8.5, Alb 2.6, Fe 28, TIBC 189, % sat 13, Ferritin 137, BNP 266.5 CXR: Parenchymal changes of R lung base concerning for R perihilar and LL PNA and small b/l pleural effusions. A/P: Sepsis 2/2 CAP vs chronic interstitial infection: -tachycardia, WBC 16, and CXR suspicious for RLL PNA -CT scan 02/2019, and 06/2019 with findings of migratory opacities which are a mixture of ill-defined ground glass opacities and consolidation, originally concerning for malignancy but latter scan more concerning for atypical infection such as eosinophilic pneumonia with bronchoscopy recommended. Has outpatient referral to pulmonology scheduled for next month. -s/p IV Rocephin and Azithromycin in ED, will continue -procal pending -consult Pulm in AM for possible bronch with previous CT findings. KIANA on CKD4 vs CKD5: -consult Dr. Bills in AM -Phos elevated at 7.9. Mg wnl. K wnl. -worsened pulmonary edema on CXR -no immediate needs for HD. -repeat mg, phos, bmp in AM. Anemia of CKD vs Fe Deficiency: -hx of Fe deficiency anemia and GI ulcer, recently stopped Famotidine. No s/sx of bleeding. Fe studies consistent with Anemia of chronic disease but will get FOBT with hx. -Also hx of alcohol use -2U pRBC's ordered from ED with 40mg IV Lasix. H/H 4h post transfusion. HFpEF: -BNP 266 -Echo done 02/2019, EF 60-65% and grade 1/3 diastolic dysfunction. -Diffuse edema more consistent with uremia than CHF exacerbation. -watch closely after 2U pRBC's. Hx of Colon Cancer s/p Hemicolectomy and GI Ulcer: -Is due for repeat colonoscopy. Has outpatient scheduled. -FOBT pending. If positive consider inpatient consult. -Pepcid daily Type 2DM: -Home Novolog 70/30 8U BID, will give 8U Lantus daily here and SSI. -home pioglitazone Hypoalbunemia with hx of severe protein calorie malnutrition and deconditioning: -prealbumin pending -proof machine operator consult -Ensure TID with lactaid supplements -continue Megace and Mirtazipine. -consult PT/OT Hx of HTN: -has been off all medications for about a year. Stage 2 Sacral Ulcer: - Keep pressure relieving dressings in place -wound care consult DVT PPx: Heparin GI PPx: Pepcid Code status: Chemical and Cardiac only. No intubation, no shock. Dispo: Stable, LOS likely >48h.
[2019-07-11] MEDS ORDERED: Dextrose 50% Abboject 50 ML SYRINGE SLOW IVP PRN (00:22)
[2019-07-11] MEDS ORDERED: Ondansetron PF 4 MG/2 ML Vial IVP PRN ×2 (00:22→00:27)
[2019-07-11] MEDS ORDERED: Dextrose 5% in Water 1,000 ML IV PRN (00:22)
[2019-07-11] MEDS ORDERED: Ondansetron ODT 4 MG TAB PO PRN (00:22)
[2019-07-11] MEDS ORDERED: Ondansetron ODT 4 MG TAB SL PRN (00:27)
[2019-07-11] MEDS ORDERED: Insulin Glargine 8 UNITS in Pre-Filled Syringe 1 EACH SC SCH (00:30)
[2019-07-11 01:11] LABS: Hemoglobin 7.9 g/dL (12.0-16.0)
[2019-07-11] MEDS: Acetaminophen 325 MG TAB PO PRN ×2 (01:19→13:18)
[2019-07-11] MEDS ORDERED: Polyethylene Glycol 3350 17 GM Packet PO PRN (04:26)
[2019-07-11] MEDS ORDERED: Acetaminophen 325 MG TAB PO PRN (04:26)
[2019-07-11] MEDS ORDERED: Senokot S 8.6-50 MG TAB PO PRN (04:26)
[2019-07-11] MEDS ORDERED: DARBEPOETIN ALFA IN POLYSORBAT 60 MCG SC SCH (04:30)
--- NOTE | 2019-07-11 05:49 | PDOC.FM ---
- Subjective Subjective: Patient doing well this morning, eager to go home. Tolerating a diet well. Tolerated 2u pRBC well. Concerned about her wheezing and reports that it can make it difficult for her to sleep. - Objective Vital Signs & Weight: Vital Signs (12 hours) Temp Pulse Pulse Resp BP BP Pulse Ox 07/11/19 04:15 99.1 F 92 20 136/79 96 07/11/19 01:49 98.5 F 102 H 20 149/78 H 96 07/11/19 01:33 98.2 F 104 H 20 143/84 H 95 07/11/19 00:45 95 07/11/19 00:13 98.4 F 105 H 18 172/96 H 96 07/10/19 19:47 98.4 F 105 H 18 172/96 H 96 Weight Weight 46 kg I&O: 07/09/19 07/10/19 07/11/19 06:59 06:59 06:59 Intake Total 350 Balance 350 Result Diagrams: 07/11/19 06:49 07/11/19 06:49 Phys Exam - Physical Examination HEENT: moist MMs, sclera anicteric Neck: full ROM wheezing BUL, crackles throughout Cardiovascular: RRR, no significant murmur Gastrointestinal: soft, non-tender Musculoskeletal: pulses present 1+ pitting edema BLE Neurological: non-focal, moves all 4 limbs Psychiatric: normal affect, A&O x 3 Skin: normal turgor Deviation from normal: scattered purpura upper extremities Dx/Plan (1) Sepsis Code(s): A41.9 - SEPSIS, UNSPECIFIED ORGANISM Status: Acute Qualifiers: Sepsis type: sepsis due to unspecified organism Sepsis acute organ dysfunction status: with acute organ dysfunction Severe sepsis acute organ dysfunction type: acute renal failure Acute renal failure type: unspecified Severe sepsis shock status: without septic shock Qualified Code(s): A41.9 - Sepsis, unspecified organism; R65.20 - Severe sepsis without septic shock; N17.9 - Acute kidney failure, unspecified (2) Pneumonia Code(s): J18.9 - PNEUMONIA, UNSPECIFIED ORGANISM Status: Acute Qualifiers: Pneumonia type: due to unspecified organism Laterality: right Lung location: unspecified part of lung Qualified Code(s): J18.9 - Pneumonia, unspecified organism (3) Systolic CHF Code(s): I50.20 - UNSPECIFIED SYSTOLIC (CONGESTIVE) HEART FAILURE Status: Chronic (4) Acute kidney injury superimposed on CKD Code(s): N17.9 - ACUTE KIDNEY FAILURE, UNSPECIFIED; N18.9 - CHRONIC KIDNEY DISEASE, UNSPECIFIED Status: Acute (5) DM type 2 (diabetes mellitus, type 2) Status: Chronic Qualifiers: Diabetes mellitus doctor podiatric medicine insulin use: with doctor podiatric medicine use Diabetes mellitus complication status: with kidney complications Diabetes mellitus complication detail: with chronic kidney disease Chronic kidney disease stage : stage 4 (severe) Qualified Code(s): E11.22 - Type 2 diabetes mellitus with diabetic chronic kidney disease; N18.4 - Chronic kidney disease, stage 4 (severe ); Z79.4 - bobbin hauler (current) use of insulin (6) Normocytic anemia Code(s): D64.9 - ANEMIA, UNSPECIFIED Status: Chronic (7) History of colon cancer Code(s): Z85.038 - PERSONAL HISTORY OF MALIGNANT NEOPLASM OF LARGE INTESTINE Status: Chronic - Plan Plan: #Sepsis 2/2 Pneumonia -CXR with findings suggestive of PNA in right perihilar & lung base -septic on admission: tachycardia to 104 and WBC 16,000 -given 1 g Rocephin & 500 mg Azithromycin in ED @ approx. 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 Bills today, appreciate recs -patient has refused dialysis in past, but is now open to it if it extends her life -Mag 1.8, Phos 7.9, K 4.6 #Normocytic Anemia -suspect anemia of chronic disease as primary cause -admission Hgb 5.9/Hct 18.4 > 9.2/28.8 -s/p 2 units pRBCs given by ED (started 07/09, finish 07/10) -FOBT screen +; consulted GI, Dr. Diaz, appreciate recs -Iron studies showed Fe 25, TIBC 189, iron sat 13% -B12 and Folate wnl #Diastolic HF -ECHO Feb 2019: diastolic dysfunction, EF 60-65% -BNP 266 this admission (up from 94 in Feb 2019) -s/p 1 dose of Lasix 40 mg IV -patient continues to have crackles throughout with 1+ pitting edema BLE, not requiring oxygen; will f/u nephro recs #HTN -continue home meds -vitals q4h -monitor I/Os #IDDM -continue home meds: Lantus 8 units (equiv. of home 9u novolog 70/30 BID dose) -Accuchecks ACHS -diabetes hypoglycemia protocol in place -mild SSI and bedtime correctional scale ordered #Hx of Colon Cancer -patient has had a partial colectomy, due for surveillance colonoscopy -+FOBT -consulted GI, Dr. Diaz, appreciate recs Diet: CC 1800 VTE: Heparin 5000 units TID Code status: Cardiac only-pt okay with compressions, IV meds but is NOT okay with defibrillation; does not want to be intubated, discussed with patient and her Dispo: Stable, admitted to inpatient on medical unit. Will consult Nephrology & GI today, appreciate recs. Continued IV abx and respiratory support. Anticipate LOS >48 hrs.
[2019-07-11] MEDS ORDERED: Famotidine/PF 20 mg/2ml Vial ONE (06:42)
[2019-07-11 07:00] LABS: #Basophils 0.1 thou/uL (0.0-0.2); #Eosinphils 0.2 thou/uL (0.0-0.7); #Lymphocytes 1.4 thou/uL (1.20-3.40); #Monocytes 0.7 thou/uL (0.11-0.59); %Basophils 0.6 % (0.0-1.0); %Eosinophils 1.7 % (0.0-10.0); %Lymphocytes 11.2 % (21.0-51.0); %Monocytes 5.5 % (0.0-10.0); %Neutrophils 81.1 % (42.0-75.0); Hemoglobin 9.2 g/dL (12.0-16.0); Mean Corpuscular HGB CONC 31.9 g/dL (32.0-36.0); Mean Corpuscular Hemoglobin 31.6 pg (27.0-31.0); Mean Corpuscular Volume 98.9 fL (78.0-98.0); Mean Platelet Volume 8.1 fL (7.4-10.4); Platelet Count 326 thou/uL (130-400); RBC Distribution Width 13.1 % (11.5-14.5); Red Blood Cell (RBC) Count 2.91 mill/uL (4.20-5.40); White Blood Cell (WBC) Count 12.4 thou/uL (4.8-10.8)
[2019-07-11 07:20] LABS: Phosphorus 7.9 mg/dL (2.3-4.7)
[2019-07-11 07:42] LABS: ALT (SGPT) 11 U/L (8-55); AST (SGOT) 23 U/L (5-34); Albumin 2.3 g/dL (3.4-4.8); Alkaline Phosphatase 72 U/L (40-110); Anion Gap 14 mmol/L (10-20); BUN (Urea Nitrogen) 82 mg/dL (9.8-20.1); Bilirubin, Total Less than 0.2 mg/dL (0.2-1.2); Calc. Creatinine Clearance 8 mL/min (70-130); Calcium 6.9 mg/dL (7.8-10.44); Carbon Dioxide 12 mmol/L (23-31); Chloride 118 mmol/L (98-107); Estimated GFR-MDRD 9; Globulin 3.3 g/dL (2.4-3.5); Glucose 94 mg/dL (80-115); Magnesium 1.7 mg/dL (1.6-2.6); Potassium 4.8 mmol/L (3.5-5.1); Protein, Total 5.6 g/dL (6.0-8.3); Sodium 139 mmol/L (136-145)
[2019-07-11] MEDS ORDERED: predniSONE 20 MG TAB PO SCH (08:15)
[2019-07-11] MEDS ORDERED: Pioglitazone HCl 45 MG TAB PO SCH (09:00)
[2019-07-11 10:38] LABS: HBSAB Concentration 4.81 mIU/mL; HBSAg Index 0.25 S/CO (0-0.99); Hep B Core Total Ab Non-Reactive (NonReactive); Hep B Core Total Index 0.25 S/CO (0-0.79); Hep B Surf AB Non-Reactive (NonReactive); Hep B Surf Ag Non-Reactive S/CO (NonReactive); Hep C IgG Ab Non-Reactive (NonReactive); Hep C Index 0.14 S/CO (0-0.79)
--- NOTE | 2019-07-11 11:42 | PRG ---
DATE OF SERVICE: 07/11/2019 Ms. Mann is a 69-year-old lady with end-stage renal disease, admitted with pneumonia. She has been very ambivalent about accepting dialysis which she needs to survive. She had initially refused with Dr. Bills to have dialysis. This morning, she is again stating she would proceed with dialysis. We will reconsult Dr. Bills. In the meantime, we will continue her antibiotics for pneumonia. Job ID: [id number]
[2019-07-11] MEDS ORDERED: CEFAZOLIN 2 GM in Premix Bag 1 BAG IVPB SCH (12:00)
[2019-07-11 12:23] LABS: HBSAB Concentration 4.78 mIU/mL; HBSAg Index 0.38 S/CO (0-0.99); Hep B Core Total Ab Non-Reactive (NonReactive); Hep B Core Total Index 0.13 S/CO (0-0.79); Hep B Surf AB Non-Reactive (NonReactive); Hep B Surf Ag Non-Reactive S/CO (NonReactive); Hep C IgG Ab Non-Reactive (NonReactive); Hep C Index 0.12 S/CO (0-0.79)
[2019-07-11] MEDS ORDERED: Heparin 10,000 UNITS/ 10 ML VIAL ONE (12:56)
[2019-07-11] MEDS: Heparin 5,000 UNITS/ML VIAL SC SCH ×3 (13:16→21:17)
[2019-07-11] MEDS: predniSONE 20 MG TAB PO SCH (13:16)
[2019-07-11] MEDS: Gabapentin 100 MG CAP PO SCH ×3 (13:16→20:39)
[2019-07-11] MEDS: Megestrol Acetate 40 MG TAB PO SCH (13:16)
[2019-07-11] MEDS: Famotidine 20 MG TAB PO SCH (13:16)
--- NOTE | 2019-07-11 15:34 | PDOC.PALCO ---
Palliative Care Consult - Allergies Allergies/Adverse Reactions: Allergies Allergy/AdvReac Type Severity Reaction Status Date / Time No Known Drug Allergies Allergy Verified 07/11/19 01:41 - Objective Vital Signs: Vital Signs - Most Recent Temp Pulse Resp BP Pulse Ox 98.4 F 94 20 153/74 H 98 07/11/19 08:00 07/11/19 08:00 07/11/19 08:00 07/11/19 08:00 07/11/19 08:00 - Plan/Recommendations Plan: Introduced Palliative care to patient and . Patient initially distant and short with answers, did confirm she would do Dialysis. Dr Kaufman to place cath to initiate dialysis. Support given to patient and . Initiated conversation in relation to [facility] dialysis, and Goal of Care with multiple morbidities. Will follow up to continue conversation and patient and fatigued and overwhelmed. Will revisit goal of care both short term and termination clerk [] minutes spent on this encounter with >50% of the time in counseling and coordination of care. Thank you for this very appropriate consult.
--- NOTE | 2019-07-11 16:09 | ULT ---
BILATERAL UPPER EXTREMITY VEIN MAPPIN07/11/19 HISTORY: End-stage renal disease. Examination done for dialysis access. RIGHT UPPER EXTREMITY BRACHIAL ARTERY: 4.7 mm RADIAL ARTERY: 1.3 mm ULNAR ARTERY: 2.1 mm CEPHALIC VEIN Proximal Humerus: 2.0 mm Mid Humerus: 1.6 mm Distal Humerus: 1.6 mm Elbow: 1.4 mm Proximal Forearm: 1.4 mm Mid Forearm: 2.3 mm Distal Forearm: 1.8 mm BASILIC VEIN Proximal Humerus: 7.8 mm Mid Humerus: 5.7 mm Distal Humerus: 3.5 mm Elbow: 3.1 mm Proximal Forearm: 1.4 mm Mid Forearm: 1.3 mm Distal Forearm: 1.5 mm LEFT UPPER EXTREMITY BRACHIAL ARTERY: 4.6 mm RADIAL ARTERY: 2.3 mm ULNAR ARTERY: 2.0 mm CEPHALIC VEIN Proximal Humerus: 2.8 mm Mid Humerus: 2.2 mm Distal Humerus: 2.2 mm Elbow: Thrombus Proximal Forearm: 1.9 mm Mid Forearm: 1.9 mm Distal Forearm: 1.3 mm BASILIC VEIN Proximal Humerus: 3.6 mm Mid Humerus: 3.7 mm Distal Humerus: 3.0 mm Elbow: 2.0 mm Proximal Forearm: 1.4 mm Mid Forearm: 2.0 mm Distal Forearm: 1.3 mm IMPRESSION: Vein mapping as above. POS: [facility]
[2019-07-11] MEDS ORDERED: GoLYTELY 4,000 ml Bottle PO SCH (17:00)
--- NOTE | 2019-07-11 17:05 | CON ---
DATE OF CONSULTATION: HISTORY OF PRESENT ILLNESS: Vilma Mann is a 69-year-old female with chronic kidney disease, severe acidosis with CO2 of 14, normal potassium, admitted by [facility] service, seen by Dr. Bills. I have been asked to see her regarding dialysis access. The patient initially resistant. She is in a position in the bed, will not make eye contact with me until I asked her to do so. She is insulin-dependent diabetic, has diabetes mellitus. She is in need of dialysis access, but today she has gone back and forth as to whether she will consent to that. Unfortunately, she had a regular diet today. She has an IV in her right AC and an IV in her left cephalic vein upper arm, these were immediately removed. ALLERGIES: NONE. SOCIAL HISTORY: Tobacco, none. Alcohol, none. MEDICATIONS AT HOME: 1. Tylenol. 2. Neurontin. 3. MiraLAX. 4. Remeron. 5. Megace. 6. Colace. 7. Insulin. PAST MEDICAL HISTORY: 1. Diabetes mellitus. 2. Hypertension. 3. End-stage renal disease, now needs dialysis. 4. History of colon cancer status post colon resection. PAST SURGICAL HISTORY: 1. ORIF of right hip in 2019. 2. Colon cancer resection in the past. REVIEW OF SYSTEMS: Ten-point noncontributory. PHYSICAL EXAMINATION: VITAL SIGNS: Height 5 feet 3 inches, 101 pounds, 18 BMI, temperature 98.4, heart rate 94, and blood pressure 153/74. HEAD, EARS, EYES, NOSE, AND THROAT: Unremarkable. LUNGS: Clear to auscultation. CARDIAC: Regular rate and rhythm without murmur or gallop. ABDOMEN: Soft and nontender. VASCULAR: Palpable radial pulses. IV at right AC and IV in left upper arm cephalic vein, both of which were removed immediately. EXTREMITIES: No ankle edema. LABORATORY DATA: She is admitted with hemoglobin of 5, transfused, now her hemoglobin 9.2. White count is 12. BUN 82, creatinine is 4.91, and GFR 9. Glucoses have been 56 to 103. Liver function tests normal. ASSESSMENT AND PLAN: 1. End-stage renal disease. She has consented to dialysis. She has eaten and since she has had severe acidosis, we will plan bedside placement of a temporary dialysis catheter, may plan more permanent access next week. I will perform ultrasound vein mapping. Next week, she will plan maybe Sunday or Sunday hemodialysis catheter and a dialysis fistula or graft. 2. History of colon cancer and colon resection. Records not available. 3. Diabetes mellitus, insulin-dependent. 4. Hypertension. 5. Malnutrition. 6. Severe anemia. Transfuse this hospitalization. Seen by Dr. Diaz. Job ID: [id number]
[2019-07-11] MEDS: Mirtazapine 15 MG TAB PO SCH (20:39)
[2019-07-11] MEDS: cefTRIAXone\\ROCEPHIN 1 GM in Sodium Chloride 0.9% 100 ML IVPB SCH (20:56)
[2019-07-11] MEDS: Tuberculin PPD 0.1 ML VIAL I-DERMAL SCH (20:58)
[2019-07-11] MEDS: GoLYTELY 4,000 ml Bottle PO SCH (21:00)
[2019-07-11] MEDS: Azithromycin 500 MG in Sodium Chloride 0.9% 250 ML 250 ML IVPB SCH (21:05)
[2019-07-11] MEDS: Insulin Glargine 8 UNITS in Pre-Filled Syringe 1 EACH SC SCH (21:17)
[2019-07-12 04:12] LABS: #Lymphocytes 0.8 thou/uL (1.20-3.40); #Neutrophils 12.5 thou/uL (1.40-6.50); %Basophils 0.1 % (0.0-1.0); %Eosinophils 0.1 % (0.0-10.0); %Lymphocytes 6.2 % (21.0-51.0); %Monocytes 0.2 % (0.0-10.0); %Neutrophils 93.4 % (42.0-75.0); Hemoglobin 9.5 g/dL (12.0-16.0); Mean Corpuscular HGB CONC 33.6 g/dL (32.0-36.0); Mean Corpuscular Hemoglobin 31.7 pg (27.0-31.0); Mean Corpuscular Volume 94.2 fL (78.0-98.0); Mean Platelet Volume 8.3 fL (7.4-10.4); Platelet Count 325 thou/uL (130-400); RBC Distribution Width 13.2 % (11.5-14.5); White Blood Cell (WBC) Count 13.3 thou/uL (4.8-10.8)
[2019-07-12 04:25] LABS: Anion Gap 18 mmol/L (10-20); BUN (Urea Nitrogen) 46 mg/dL (9.8-20.1); Calc. Creatinine Clearance 12 mL/min (70-130); Carbon Dioxide 18 mmol/L (23-31); Chloride 109 mmol/L (98-107); Estimated GFR-MDRD 14; Glucose 214 mg/dL (80-115); Magnesium 1.7 mg/dL (1.6-2.6); Phosphorus 5.6 mg/dL (2.3-4.7); Potassium 4.3 mmol/L (3.5-5.1); Sodium 141 mmol/L (136-145)
[2019-07-12] MEDS: GoLYTELY 4,000 ml Bottle PO SCH (05:00)
--- NOTE | 2019-07-12 05:11 | PDOC.FM ---
- Subjective Subjective: Patient doing well this morning. Had temporary dialysis cath placed yesterday, and 1 round of HD yesterday and tolerated it well. Has been adherent to bowel prep overnight, ready for scope today. - Objective Vital Signs & Weight: Vital Signs (12 hours) Temp Pulse Resp BP Pulse Ox 07/12/19 03:56 98.8 F 103 H 16 151/76 H 94 L 07/11/19 23:56 98.4 F 107 H 16 146/72 H 96 07/11/19 20:00 95 07/11/19 19:36 99.8 F H 112 H 20 155/80 H 95 Weight Admit Weight 46 kg Weight 46 kg I&O: 07/10/19 07/11/19 07/12/19 06:59 06:59 06:59 Intake Total 710 Balance 710 Result Diagrams: 07/12/19 03:40 07/12/19 03:40 Phys Exam - Physical Examination Constitutional: NAD frail appearing HEENT: moist MMs, sclera anicteric Neck: supple, full ROM crackles throughout all lobes Cardiovascular: RRR, no significant murmur Gastrointestinal: soft, non-tender trace BLE edema Neurological: non-focal, moves all 4 limbs Psychiatric: normal affect, A&O x 3 Skin: no rash, normal turgor Dx/Plan (1) Sepsis Code(s): A41.9 - SEPSIS, UNSPECIFIED ORGANISM Status: Acute Qualifiers: Sepsis type: sepsis due to unspecified organism Sepsis acute organ dysfunction status: with acute organ dysfunction Severe sepsis acute organ dysfunction type: acute renal failure Acute renal failure type: unspecified Severe sepsis shock status: without septic shock Qualified Code(s): A41.9 - Sepsis, unspecified organism; R65.20 - Severe sepsis without septic shock; N17.9 - Acute kidney failure, unspecified (2) Pneumonia Code(s): J18.9 - PNEUMONIA, UNSPECIFIED ORGANISM Status: Acute Qualifiers: Pneumonia type: due to unspecified organism Laterality: right Lung location: unspecified part of lung Qualified Code(s): J18.9 - Pneumonia, unspecified organism (3) Systolic CHF Code(s): I50.20 - UNSPECIFIED SYSTOLIC (CONGESTIVE) HEART FAILURE Status: Chronic (4) Acute kidney injury superimposed on CKD Code(s): N17.9 - ACUTE KIDNEY FAILURE, UNSPECIFIED; N18.9 - CHRONIC KIDNEY DISEASE, UNSPECIFIED Status: Acute (5) DM type 2 (diabetes mellitus, type 2) Status: Chronic Qualifiers: Diabetes mellitus intermediate designer insulin use: with intermediate designer use Diabetes mellitus complication status: with kidney complications Diabetes mellitus complication detail: with chronic kidney disease Chronic kidney disease stage : stage 4 (severe) Qualified Code(s): E11.22 - Type 2 diabetes mellitus with diabetic chronic kidney disease; N18.4 - Chronic kidney disease, stage 4 (severe ); Z79.4 - extermination inspector (current) use of insulin (6) Normocytic anemia Code(s): D64.9 - ANEMIA, UNSPECIFIED Status: Chronic (7) History of colon cancer Code(s): Z85.038 - PERSONAL HISTORY OF MALIGNANT NEOPLASM OF LARGE INTESTINE Status: Chronic - Plan Plan: #Sepsis 2/2 Pneumonia, sepsis resolved -CXR with findings suggestive of PNA in right perihilar & lung base -septic on admission: tachycardia to 104 and WBC 16,000 -given 1 g Rocephin & 500 mg Azithromycin in ED @ approx. 2200, continue q24 hr -started oral prednisone 40mg qd 07/10 for suspected eosinophilic pneumonia on recent clinic CT, patient to f/u outpatient with pulmonology for possible bronch -procal 0.43 #KIANA on CKD4 versus now CKD5 -admission BUN 79, Cr 4.90, GFR 9 > Cr 3.36, GFR 14 -up from baseline of BUN 26, Cr 2.76, GFR 17 -Dr. Bills consulted, patient started HD 07/10, tolerated it well; appreciate recs -Dr. Kaufman consulted, temporary dialysis catheter placed 07/10, plans for permanent placement of HD catheter and dialysis fistula/graft next Sunday/ Sunday -patient has refused dialysis in past, but is now open to it if it extends her life #Normocytic Anemia, stable -suspect anemia of chronic disease as primary cause -admission Hgb 5.9/Hct 18.4 > 9.2/28.8 > 9.5/28.3 -s/p 2 units pRBCs given by ED (started 07/09, finish 07/10) -FOBT screen +; consulted GI, Dr. Diaz, appreciate recs -plans for colonoscopy today -Iron studies showed Fe 25, TIBC 189, iron sat 13% -B12 and Folate wnl #Diastolic HF -ECHO Feb 2019: diastolic dysfunction, EF 60-65% -BNP 266 this admission (up from 94 in Feb 2019) -s/p 1 dose of Lasix 40 mg IV on admission -patient continues to have crackles throughout, BLE edema improved with HD; will f/u nephro recs #HTN -continue home meds -vitals q4h -monitor I/Os #IDDM -continue home meds: Lantus 8 units (equiv. of home 9u novolog 70/30 BID dose) -Accuchecks ACHS -diabetes hypoglycemia protocol in place -mild SSI and bedtime correctional scale ordered #Hx of Colon Cancer -patient has had a partial colectomy, due for surveillance colonoscopy -+FOBT -consulted GI, Dr. Diaz, appreciate recs, plans for colonoscopy today Diet: CC 1800 VTE: Heparin 5000 units TID Code status: Cardiac only-pt okay with compressions, IV meds but is NOT okay with defibrillation; does not want to be intubated, discussed with patient and her Dispo: Stable, admitted to inpatient on medical unit. Nephrology consulted, patient started dialysis 07/10, appreciate recs. GI consulted, plans for colonoscopy today. Continued IV abx, po steroids, and respiratory support. Addendum - Attending - Attending Attestation Date/Time: 07/12/19 7057 I personally evaluated the patient and discussed the management with Dr. Casey. I agree with the History, Examination, Assessment and Plan documented above with any addition or exceptions noted below. Patient here for multiple medical reasons. She has agreed to start HD therapy, awaiting more permanent access. Labs stable and improved somewhat. She is undergoing bowel prep for colonoscopy today to evaluate the cause of her GI bleeding. Further mgmt per those results.
--- NOTE | 2019-07-12 09:35 | CON ---
DATE OF CONSULTATION: 07/11/2019 REASON FOR CONSULTATION: Anemia, occult GI bleeding. HISTORY OF PRESENT ILLNESS: Ms. Vilma Mann is a very pleasant, 69-year-old, female, hospitalized with anemia and also was found to have positive fecal occult blood. The patient denies any hematochezia or any melena. The patient had been feeling weak, fatigued, tired, and also feeling extremely cold over the last several days. Today, she had a CBC done at outpatient clinic and was found to have anemia. The patient has been transfused. The admitting CBC shows hemoglobin 6.2, but after transfusion, it has come around 9 g. The patient has a history of colon cancer surgery in the past. Apparently, this was done over 6 years ago. The patient has never had a colonoscopy for the last 5 years. The patient denies any hematochezia or any melena. Her bowel movements are fairly regular. No abdominal pain. No nausea or vomiting. No indigestion. No dysphagia or odynophagia. The patient had no other source of blood loss. No history of any hematuria. No history of any nosebleed or bleeding from the gums, etc. The patient also has a history of chronic kidney disease and had seen Dr. Bird in the past. Her BUN has gone up to 66, creatinine is 2.76. It is mentioned that the patient was refusing to have a dialysis in the past. Apparently, she has seen Dr. Conrado Bird, our powerhouse engineer in February 2019. The patient offers no complaint except for saying that she is feeling extremely cold. No relevant history. SOCIAL HISTORY: The patient is . She drinks alcohol socially. She quit smoking many years ago. No history of drug abuse. MEDICAL ILLNESSES: 1. Colon cancer, underwent surgery. She does not know the surgeon or what kind of surgery was done. 2. Insulin-dependent diabetes mellitus. 3. Hypertension. 4. Chronic kidney disease, stage 4. 5. Protein calorie malnutrition. 6. Past history of PUD. SURGERIES: 1. Hemicolectomy for colon cancer. 2. ORIF of right hip in 2019, for fracture. 3. No other surgeries. FAMILY HISTORY: No family history of any cancer, stroke, or heart disease. Multiple family members have had diabetes. MEDICATIONS LIST: Reviewed. REVIEW OF SYSTEMS: A 10-point systems reviewed. CONSTITUTIONAL: No history of recent weight loss, but says she feels cold. No history of any fever. No history of any change in exercise tolerance. HEAD: No chronic headache. No syncope. EYES: No impaired vision or diplopia. EARS: No hearing loss. NOSE: No nosebleed. THROAT: No sore throat. No dysphagia. LUNGS: No chronic coughing, hemoptysis, or dyspnea. CARDIOVASCULAR: No chest pain. No dyspnea. No orthopnea or PND. No palpitation. GI: No abdominal pain. No nausea or vomiting. No dysphagia. No hematochezia. No melena. : No dysuria or frequency of urination. MUSCULOSKELETAL: Not relevant. NEUROLOGIC: Not relevant. ENDOCRINE: Not relevant HEMATOLOGICAL: Not relevant. PHYSICAL EXAMINATION: GENERAL: She is a fragile-looking, female, appears very comfortable. She does not take . She feels very cold and wants to cover herself with a blanket. VITAL SIGNS: Stable. Afebrile. Pulse is 94. Blood pressure is 152/74. HEENT: Conjunctivae are clear. NECK: Supple. No adenitis or thyromegaly noted. CARDIOVASCULAR: First and second sounds. LUNGS: Clear to auscultation. GI: Abdomen is soft. Abdomen is nondistended. Abdomen is nontender. No organomegaly. No masses. EXTREMITIES: Trace edema. LABORATORY DATA: Show anemia which is actually normocytic. The CBC on admission; WBC 16,000, hemoglobin is 5.9, hematocrit is 18.4, MCV 97.3, platelet count is , polymorphs 78, lymphocytes 14. Today, after transfusion, the hemoglobin is up to 9.2, hematocrit 28.8. Chem-7 shows any evidence of renal failure, BUN is 82, creatinine is 4.91. Lytes are normal. CO2 is 12. Calcium is 6.9. Phosphorus 7.9. AST 23, ALT 11, alkaline phosphatase 72, albumin 2.3. The fecal occult blood test came back positive. CLINICAL IMPRESSION: A 69-year-old female with diabetes mellitus and chronic kidney disease, presents with symptomatic anemia. She had no overt GI bleeding; however, the stool guaiac is positive. She had a history of colon cancer surgery about 6 years ago. She has no recent colonoscopy. Although, there is some mention of multiple esophagogastroduodenoscopy and colonoscopy I do not find any reference to endoscopic studies in the [facility]. 1. Anemia, normocytic, positive fecal occult blood. 2. Hypertension. 3. Diabetes mellitus. 4. Chronic kidney disease. 5. History of colon cancer, status post hemicolectomy in the past. PLAN: 1. Transfuse. 2. Follow up H and H. 3. EGD and colonoscopy tomorrow. I did talk to Ms. Mann which includes clear liquid diet and also drink GoLYTELY. I will plan for EGD and colonoscopy tomorrow and make further recommendations. Job ID: [id number]
[2019-07-12] MEDS ORDERED: PROPOFOL 200 MG/20 ML VIAL ONE (10:35)
[2019-07-12] MEDS: Gabapentin 100 MG CAP PO SCH ×3 (12:27→20:38)
[2019-07-12] MEDS: Megestrol Acetate 40 MG TAB PO SCH (12:27)
[2019-07-12] MEDS: predniSONE 20 MG TAB PO SCH (12:27)
[2019-07-12] MEDS: Famotidine 20 MG TAB PO SCH (12:27)
[2019-07-12] MEDS: Heparin 5,000 UNITS/ML VIAL SC SCH ×3 (12:27→20:38)
[2019-07-12] MEDS ORDERED: Heparin 10,000 UNITS/ 10 ML VIAL ONE (12:59)
--- NOTE | 2019-07-12 13:14 | PRG ---
DATE OF SERVICE: 07/12/2019 SUBJECTIVE: Patient was seen and examined at bedside and overnight events noted. Patient denies any shortness of breath or chest pain or palpitation. No history of nausea or vomiting or diarrhea or fever or chills or cramps. OBJECTIVE: GENERAL: This is a well-built female, in no apparent distress. VITAL SIGNS: Temperature 98.3. Heart rate 102. Respiratory rate 18. Blood pressure 135/92. HEENT: Atraumatic, normocephalic. Oral mucosa is moist. NECK: Supple. CARDIOVASCULAR: S1, S2 heard. Rate and rhythm regular. RESPIRATORY: Clear to auscultation. GASTROINTESTINAL: Abdomen is soft. MUSCULOSKELETAL: No tenderness. No edema. DERMATOLOGIC: No skin rash. NEUROLOGIC: Alert and awake and oriented X3. No focal neurologic deficits. Moving all the extremities. PSYCHIATRIC: Mood and affect normal. LABORATORY DATA: Potassium 4.3, BUN is 46, and creatinine is 3.3. ASSESSMENT: 1. End-stage renal disease, started on hemodialysis. We will continue dialysis. 2. Anemia. 3. Hypertension. 4. Acidosis. 5. Hyperkalemia, better. PLAN: To continue on dialysis as tolerated. Plan to have 3 hours of dialysis today, then continue dialysis on Sunday, Sunday, Sunday. Job ID: [id number]
--- NOTE | 2019-07-12 13:44 | EKG ---
Test Reason : Blood Pressure : / mmHG Vent. Rate : 104 BPM Atrial Rate : 104 BPM P-R Int : 150 ms QRS Dur : 054 ms QT Int : 336 ms P-R-T Axes : 046 -04 011 degrees QTc Int : 441 ms Sinus tachycardia Low voltage QRS Septal infarct , age undetermined Abnormal ECG Confirmed by CONCHA JACKSON [id number]), manager editorial ZENOBIA CAMPBELL ([id number]) on 07/12/2019 1:44:02 PM Referred By: Confirmed By:CONCHA Bell
[2019-07-12] MEDS: HumaLOG 300 UNITS/3 ML VIAL SC PRN ×3 (14:09→20:48)
--- NOTE | 2019-07-12 14:34 | OP ---
DATE OF PROCEDURE: 07/12/2019 OPERATIVE PROCEDURE: Colonoscopy. PREOPERATIVE DIAGNOSIS: A 69-year-old female with a previous colon cancer surgery, presented with anemia. The patient had no history of hematochezia or any melena. The patient undergoing colonoscopy. POSTOPERATIVE DIAGNOSES: 1. Hemorrhoids. 2. Healthy anastomosis. No pathology seen . DESCRIPTION OF PROCEDURE: The patient was placed on her left lateral position and was given sedation by Anesthesia Department. A rectal exam was done before scope was advanced into the rectum. No lesions felt on rectal exam. A Pentax video colonoscope was introduced into the rectum and advanced all the way into the anastomotic area. It appears the patient . The anastomotic area appears very healthy. Withdrawing the scope from the anastomotic area down into the transverse colon, splenic flexure, descending colon, sigmoid colon, no lesion seen. The prep was very good. The rectum showed hemorrhoids. Job ID: [id number]
--- NOTE | 2019-07-12 14:37 | OP ---
DATE OF PROCEDURE: 07/12/2019 OPERATIVE PROCEDURE: Esophagogastroduodenoscopy. PREOPERATIVE DIAGNOSIS: Anemia. POSTOPERATIVE DIAGNOSIS: Normal gastroscopy. DESCRIPTION OF PROCEDURE: The patient was placed on her left lateral position and was given sedation by Anesthesia Department. A Pentax video gastroscope under direct vision passed down the oropharynx past the GE junction into the stomach and subsequently into the descending duodenum. The esophageal mucosa appeared normal. The GE junction, no lesion seen. Retroflexion failed to show any pathology in fundus or cardia. The gastric body, gastric antrum, incisura angularis, no lesions seen. The duodenal bulb, descending duodenum, no lesions. The stomach was decompressed and the scope removed. RECOMMENDATIONS: 1. The patient appears to have anemia of chronic disease. The patient did have positive fecal occult blood endoscopic examination. 2. Iron supplement. 3. Followup hemoglobin and hematocrit. 4. GI will sign off from today. If there are any problems, please call us back. Job ID: [id number]
[2019-07-12 16:45] LABS: HBSAg Index 0.25 S/CO (0-0.99); Hep B Core Total Ab Non-Reactive (NonReactive); Hep B Core Total Index 0.21 S/CO (0-0.79); Hep B Surf Ag Non-Reactive S/CO (NonReactive)
[2019-07-12 16:46] LABS: HBCM Index 0.08 S/CO (0-0.79); HBSAB Concentration 4.89 mIU/mL; Hep B Surf AB Non-Reactive (NonReactive); Hepatitis B Core IgM Abs Non-Reactive (NonReactive)
[2019-07-12] MEDS: EPOETIN ALFA-EPBX (ESRD) 10,000 UNIT/ML VIAL IVP SCH (17:30)
[2019-07-12] MEDS: Tuberculin PPD 0.1 ML VIAL I-DERMAL SCH (20:33)
[2019-07-12] MEDS: cefTRIAXone\\ROCEPHIN 1 GM in Sodium Chloride 0.9% 100 ML IVPB SCH (20:37)
[2019-07-12] MEDS: Insulin Glargine 8 UNITS in Pre-Filled Syringe 1 EACH SC SCH (20:38)
[2019-07-12] MEDS: Mirtazapine 15 MG TAB PO SCH (20:39)
[2019-07-12] MEDS: Azithromycin 500 MG in Sodium Chloride 0.9% 250 ML 250 ML IVPB SCH (21:53)
--- NOTE | 2019-07-13 00:25 | OP ---
DATE OF PROCEDURE: 07/11/2019 PROCEDURE PERFORMED: Right femoral vein Trialysis catheter. ANESTHESIA: 1% Xylocaine. DESCRIPTION OF PROCEDURE: With the patient at bedside, right groin was clipped of hair, prepared with ChloraPrep and draped in routine fashion, local anesthetic was infiltrated in the skin and subcutaneous tissue. Trocar catheter cannulated the femoral vein, J-wire threaded, trocar catheter removed. Skin site was enlarged sharply. Smaller and medium size dilators placed with J-wire into the femoral vein, removed. The Trialysis catheter placed with J-wire into the femoral vein, removing the J-wire, aspirated and each port of blood, flushed with heparinized saline solution. Catheter secured 2 sutures of 3-0 nylon, sterile dressing applied. Patient tolerated the procedure well. Job ID: [id number]
[2019-07-13] MEDS: Acetaminophen 325 MG TAB PO PRN (01:05)
--- NOTE | 2019-07-13 05:12 | PDOC.FM ---
- Subjective Subjective: Patient upset about being in the hospital this morning. Discussed plans for permanent dialysis access early next week, with need to set up outpatient dialysis bed. Patient complains of being cold, is wrapped in multiple blankets. Discussed trying to get her a heating pad, patient agreeable. - Objective Vital Signs & Weight: Vital Signs (12 hours) Temp Pulse Resp BP Pulse Ox 07/13/19 00:04 136/80 07/12/19 23:54 99.1 F 98 16 213/107 H 98 07/12/19 21:56 171/86 H 07/12/19 20:00 98.6 F 106 H 16 182/82 H 96 Weight Admit Weight 46 kg Weight 46 kg I&O: 07/11/19 07/12/19 07/13/19 06:59 06:59 07:59 Intake Total 710 Balance 710 Result Diagrams: 07/13/19 07:00 07/13/19 03:30 Phys Exam - Physical Examination Constitutional: NAD cachectic and frail appearing HEENT: moist MMs, sclera anicteric Neck: supple, full ROM Respiratory: no wheezing crackles throughout all lung jaimes Cardiovascular: RRR, no significant murmur Gastrointestinal: soft, non-tender 1+ pitting edema BLE Neurological: non-focal, moves all 4 limbs Psychiatric: normal affect, A&O x 3 Skin: no rash, normal turgor Dx/Plan (1) Sepsis Code(s): A41.9 - SEPSIS, UNSPECIFIED ORGANISM Status: Acute Qualifiers: Sepsis type: sepsis due to unspecified organism Sepsis acute organ dysfunction status: with acute organ dysfunction Severe sepsis acute organ dysfunction type: acute renal failure Acute renal failure type: unspecified Severe sepsis shock status: without septic shock Qualified Code(s): A41.9 - Sepsis, unspecified organism; R65.20 - Severe sepsis without septic shock; N17.9 - Acute kidney failure, unspecified (2) Pneumonia Code(s): J18.9 - PNEUMONIA, UNSPECIFIED ORGANISM Status: Acute Qualifiers: Pneumonia type: due to unspecified organism Laterality: right Lung location: unspecified part of lung Qualified Code(s): J18.9 - Pneumonia, unspecified organism (3) Systolic CHF Code(s): I50.20 - UNSPECIFIED SYSTOLIC (CONGESTIVE) HEART FAILURE Status: Chronic (4) Acute kidney injury superimposed on CKD Code(s): N17.9 - ACUTE KIDNEY FAILURE, UNSPECIFIED; N18.9 - CHRONIC KIDNEY DISEASE, UNSPECIFIED Status: Acute (5) DM type 2 (diabetes mellitus, type 2) Status: Chronic Qualifiers: Diabetes mellitus manager intermediate insulin use: with prison use Diabetes mellitus complication status: with kidney complications Diabetes mellitus complication detail: with chronic kidney disease Chronic kidney disease stage : stage 4 (severe) Qualified Code(s): E11.22 - Type 2 diabetes mellitus with diabetic chronic kidney disease; N18.4 - Chronic kidney disease, stage 4 (severe ); Z79.4 - termite control servicer (current) use of insulin (6) Normocytic anemia Code(s): D64.9 - ANEMIA, UNSPECIFIED Status: Chronic (7) History of colon cancer Code(s): Z85.038 - PERSONAL HISTORY OF MALIGNANT NEOPLASM OF LARGE INTESTINE Status: Chronic - Plan Plan: #Sepsis 2/2 Pneumonia, sepsis resolved -CXR with findings suggestive of PNA in right perihilar & lung base -septic on admission: tachycardia to 104 and WBC 16,000 -given 1 g Rocephin & 500 mg Azithromycin in ED @ approx. 2200, continue q24 hr (today is day 3) -started oral prednisone 40mg qd 07/10 for suspected eosinophilic pneumonia on recent clinic CT, patient to f/u outpatient with pulmonology for possible bronch -patient will need to be followed with CXR -patient will likely need steroid taper -procal 0.43 #KIANA on CKD4 versus now CKD5 -admission BUN 79, Cr 4.90, GFR 9 > Cr 3.36, GFR 14 > Cr 2.33, GFR 21 -up from baseline of BUN 26, Cr 2.76, GFR 17 -Dr. Bills consulted, patient started HD 07/10, tolerated it well; appreciate recs -rec MWF HD -CM to assist with placement in outpatient dialysis bed -Dr. Kaufman consulted, temporary R fem vein trialysis catheter placed 07/10, plans for permanent placement of HD catheter and dialysis fistula/graft next Sunday/Sunday -patient has refused dialysis in past, but is now open to it if it extends her life #Normocytic Anemia, stable -suspect anemia of chronic disease as primary cause -admission Hgb 5.9/Hct 18.4 > 9.2/28.8 > 9.5/28.3 -s/p 2 units pRBCs given by ED (started 07/09, finish 07/10) -FOBT screen +; consulted GI, Dr. Diaz, appreciate recs -EGD: normal, rec iron supp -Colonoscopy: hemorrhoids, healthy anastamosis -Iron studies showed Fe 25, TIBC 189, iron sat 13% -B12 and Folate wnl #Diastolic HF -ECHO Feb 2019: diastolic dysfunction, EF 60-65% -BNP 266 this admission (up from 94 in Feb 2019) -s/p 1 dose of Lasix 40 mg IV on admission -patient continues to have crackles throughout, BLE edema improved with HD; will f/u nephro recs #HTN -not on home meds -measure blood pressure manually at all times -vitals q4h -monitor I/Os #IDDM -continue home meds: Lantus 8 units (equiv. of home 9u novolog 70/30 BID dose) -Accuchecks ACHS -diabetes hypoglycemia protocol in place -mild SSI and bedtime correctional scale ordered #Hx of Colon Cancer -patient has had a partial colectomy, due for surveillance colonoscopy -+FOBT -consulted GI, Dr. Diaz, appreciate recs, see above Diet: CC 1800 VTE: Heparin 5000 units TID Code status: Cardiac only-pt okay with compressions, IV meds but is NOT okay with defibrillation; does not want to be intubated, discussed with patient and her Dispo: Stable, admitted to inpatient on medical unit. Nephrology consulted, patient started dialysis 07/10, appreciate recs. CM to assist with finding outpatient dialysis bed. Continued IV abx, po steroids, and respiratory support. Addendum - Attending - Attending Attestation Date/Time: 07/13/19 5552 I personally evaluated the patient and discussed the management with Dr. Casey. I agree with the History, Examination, Assessment and Plan documented above with any addition or exceptions noted below.
[2019-07-13] MEDS: HumaLOG 300 UNITS/3 ML VIAL SC PRN ×4 (05:34→20:05)
[2019-07-13 06:15] LABS: Magnesium 1.6 mg/dL (1.6-2.6); Phosphorus 3.4 mg/dL (2.3-4.7)
[2019-07-13 07:00] LABS: Anion Gap 12 mmol/L (10-20); BUN (Urea Nitrogen) 23 mg/dL (9.8-20.1); Calc. Creatinine Clearance 17 mL/min (70-130); Calcium 7.5 mg/dL (7.8-10.44); Carbon Dioxide 26 mmol/L (23-31); Chloride 107 mmol/L (98-107); Estimated GFR-MDRD 21; Glucose 287 mg/dL (80-115); Potassium 3.7 mmol/L (3.5-5.1); Sodium 141 mmol/L (136-145)
[2019-07-13 07:14] LABS: #Monocytes 0.8 thou/uL (0.11-0.59); #Neutrophils 10.2 thou/uL (1.40-6.50); %Basophils 0.3 % (0.0-1.0); %Eosinophils 0.1 % (0.0-10.0); %Lymphocytes 15.4 % (21.0-51.0); %Neutrophils 78.2 % (42.0-75.0); Hemoglobin 10.1 g/dL (12.0-16.0); Mean Corpuscular Hemoglobin 31.3 pg (27.0-31.0); Mean Corpuscular Volume 94.8 fL (78.0-98.0); Platelet Count 351 thou/uL (130-400); RBC Distribution Width 13.3 % (11.5-14.5); Red Blood Cell (RBC) Count 3.22 mill/uL (4.20-5.40); White Blood Cell (WBC) Count 13.1 thou/uL (4.8-10.8)
[2019-07-13] MEDS: predniSONE 20 MG TAB PO SCH (09:00)
[2019-07-13] MEDS: Heparin 5,000 UNITS/ML VIAL SC SCH ×2 (09:15→20:03)
[2019-07-13] MEDS: Famotidine 20 MG TAB PO SCH (09:15)
[2019-07-13] MEDS: Gabapentin 100 MG CAP PO SCH ×3 (09:15→20:03)
[2019-07-13] MEDS: Megestrol Acetate 40 MG TAB PO SCH (09:18)
--- NOTE | 2019-07-13 09:27 | CON ---
DATE OF CONSULTATION: 07/11/2019 CONSULTING PHYSICIAN: Dr. Hodge. REASON FOR CONSULT: Worsening renal labs. HISTORY OF PRESENT ILLNESS: The patient is a 69-year-old female with history of colon cancer, CKD stage 4, type 2 diabetes, came to the hospital with abnormal labs and weakness. The patient is found to have CKD and follows up with Dr. Nur, is being consulted to start dialysis, but she has been refusing. Apparently, this morning also she refused, but later on agreed. The patient has symptoms of worsening renal function. No fever or chills. PAST MEDICAL HISTORY: Positive for colon cancer, type 2 diabetes, CKD, hypertension. PAST SURGICAL HISTORY: Hemicolectomy, ORIF of right hip. HOME MEDICATIONS: Reviewed. ALLERGIES: NO KNOWN DRUG ALLERGIES. SOCIAL HISTORY: drink. No tobacco use, no illicit drug abuse. FAMILY HISTORY: Positive for diabetes. REVIEW OF SYSTEMS: The following complete review of systems was negative, unless otherwise mentioned in the HPI or below: Constitutional: Weight loss or gain, ability to conduct usual activities. Skin: Rash, itching. Eyes: Double vision, pain. ENT/Mouth: Nose bleeding, neck stiffness, pain, tenderness. Cardiovascular: Palpitations, dyspnea on exertion, orthopnea. Respiratory: Shortness of breath, wheezing, cough, hemoptysis, fever or night sweats. Gastrointestinal: Poor appetite, abdominal pain, heartburn, nausea, vomiting, constipation, or diarrhea. Genitourinary: Urgency, frequency, dysuria, nocturia. Musculoskeletal: Pain, swelling. Neurologic/Psychiatric: Anxiety, depression. Allergy/Immunologic: Skin rash, bleeding tendency. PHYSICAL EXAMINATION: GENERAL: This is a well-built female, in no apparent distress. VITAL SIGNS: Temperature , pulse 94, respiratory rate , blood pressure 153/75. HEENT: Atraumatic, normocephalic. Oral mucosa is moist. NECK: Supple. CV: S1, S2 heard. Rate and rhythm regula. Rate respiratory. RESPIRATORY: Clear to auscultation. GASTROINTESTINAL: Abdomen is soft. MUSCULOSKELETAL: No tenderness. No edema. DERMATOLOGIC: No skin rash. NEUROLOGIC: Alert and awake and oriented X3. No focal neurologic deficits. Moving all the extremities. PSYCHIATRIC: Mood and affect normal. LABORATORY DATA: Hemoglobin is 9.2, potassium 4.8, BUN is 82, creatinine is 4.9. ASSESSMENT AND PLAN: 1. End-stage renal disease. Plan is to start on dialysis. Appreciate help from Dr. Kaufman. 2. Edema. Remove fluid. 3. History of hypertension. 4. Anemia, status post transfusion. We will add Epogen. We will have Case Management consult for outpatient dialysis placement. We will check PPD skin test, and we will start on dialysis as tolerated. We will follow. Job ID: [id number]
[2019-07-13] MEDS: Tuberculin PPD 0.1 ML VIAL I-DERMAL SCH (19:26)
[2019-07-13] MEDS: READ PPD TEST SITE PO SCH (19:27)
[2019-07-13] MEDS: cefTRIAXone\\ROCEPHIN 1 GM in Sodium Chloride 0.9% 100 ML IVPB SCH (20:01)
[2019-07-13] MEDS: Mirtazapine 15 MG TAB PO SCH (20:03)
[2019-07-13] MEDS: Insulin Glargine 8 UNITS in Pre-Filled Syringe 1 EACH SC SCH (20:04)
[2019-07-13] MEDS: Azithromycin 500 MG in Sodium Chloride 0.9% 250 ML 250 ML IVPB SCH (21:38)
[2019-07-14] MEDS: HumaLOG 300 UNITS/3 ML VIAL SC PRN ×3 (06:56→21:32)
--- NOTE | 2019-07-14 07:58 | PRG ---
DATE OF SERVICE: 07/13/2019 SUBJECTIVE: Patient was seen and examined at bedside and overnight events noted. Patient denies any shortness of breath or chest pain or palpitation. No history of nausea or vomiting or diarrhea or fever or chills or cramps. OBJECTIVE: GENERAL: This is a well-built female, in no apparent distress. VITAL SIGNS: Temperature 97.8. Heart rate 103. Respiratory rate 20. Blood pressure 156/83. HEENT: Atraumatic, normocephalic. Oral mucosa is moist NECK: Supple. CARDIOVASCULAR: S1, S2 heard. Rate and rhythm regular. RESPIRATORY: Clear to auscultation. GASTROINTESTINAL: Abdomen is soft. MUSCULOSKELETAL: No tenderness. No edema. DERMATOLOGIC: No skin rash. NEUROLOGIC: Alert and awake and oriented X3. No focal neurologic deficits. Moving all the extremities. PSYCHIATRIC: Mood and affect normal. LABORATORY DATA: Potassium 3.7, BUN is 23, creatinine is 2.3. ASSESSMENT AND PLAN: 1. End-stage renal disease. Started on hemodialysis during this admission. Continue dialysis on Sunday, Sunday, Sunday. Follow with Surgery for access placement and Case Management for outpatient placement. 2. Anemia. 3. Hypertension. 4. Acidosis. 5. Hyperkalemia. So far had 2 sessions of dialysis on Sunday and Sunday. Plan to have dialysis on Sunday. Job ID: [id number]
[2019-07-14] MEDS ORDERED: hydrALAZINE 20 MG/ML VIAL SLOW IVP PRN (08:07)
--- NOTE | 2019-07-14 08:07 | PDOC.FM ---
- Subjective Subjective: Doing well this morning, no acute events overnight. Tolerating breakfast well without n/v. No SOB, CP, fever/chills. Awaiting HD this morning. - Objective MAR Reviewed: Yes Vital Signs & Weight: Vital Signs (12 hours) Pulse BP 07/13/19 21:42 101 H 160/82 H Weight Admit Weight 46 kg Weight 46 kg I&O: 07/13/19 07/14/19 07/15/19 06:59 06:59 06:59 Intake Total 240 Balance 240 Result Diagrams: 07/13/19 07:00 07/13/19 03:30 Phys Exam - Physical Examination Constitutional: NAD (eating breakfast, good spirits) HEENT: moist MMs Neck: no nodes Respiratory: no wheezing, no rales, no rhonchi, clear to auscultation bilateral Cardiovascular: RRR, no significant murmur, no rub Gastrointestinal: soft, non-tender, no distention, positive bowel sounds Musculoskeletal: no edema Neurological: moves all 4 limbs Psychiatric: normal affect, A&O x 3 Dx/Plan (1) ESRD (end stage renal disease) Code(s): N18.6 - END STAGE RENAL DISEASE Status: Acute (2) Pneumonia Code(s): J18.9 - PNEUMONIA, UNSPECIFIED ORGANISM Status: Acute Qualifiers: Pneumonia type: due to unspecified organism Laterality: right Lung location: unspecified part of lung Qualified Code(s): J18.9 - Pneumonia, unspecified organism (3) Protein-calorie malnutrition, severe Code(s): E43 - UNSPECIFIED SEVERE PROTEIN-CALORIE MALNUTRITION Status: Acute (4) Sepsis Code(s): A41.9 - SEPSIS, UNSPECIFIED ORGANISM Status: Acute Qualifiers: Sepsis type: sepsis due to unspecified organism Sepsis acute organ dysfunction status: with acute organ dysfunction Severe sepsis acute organ dysfunction type: acute renal failure Acute renal failure type: unspecified Severe sepsis shock status: without septic shock Qualified Code(s): A41.9 - Sepsis, unspecified organism; R65.20 - Severe sepsis without septic shock; N17.9 - Acute kidney failure, unspecified - Plan Plan: 69yo F with h/o colon cancer s/p partial colectomy, DMII, HFpEF presented with sepsis 2/2 CAP and newly diagnosed ESRD started on HD #Sepsis 2/2 Pneumonia, sepsis resolved - CXR with findings suggestive of PNA in right perihilar & lung base - septic on admission: tachycardia to 104 and WBC 16 - satting well on RA, no fevers - given 1 g Rocephin & 500 mg Azithromycin in ED @ approx. 2200, continue q24 hr (today is day 4) - started oral prednisone 40mg qd 08/10 for suspected eosinophilic pneumonia on recent clinic CT, patient to f/u outpatient with pulmonology for possible bronch. Will need steroid taper and f/u CXR -procal 0.43 #ESRD, started on HD - Admission Cr 4.9 with GFR 9 -Dr. Bills consulted, patient started HD 07/10, tolerated well; will cont MWF HD with CM assistance for dialysis chair, appreciate recs -Dr. Kaufman consulted, temporary R fem vein trialysis catheter placed 07/10, plans for permanent placement of HD catheter and dialysis fistula/graft this Sunday/Sunday -patient has refused dialysis in past, but is now open to it if it extends her life, tolerating dialysis well #Normocytic Anemia, stable - suspect anemia of chronic disease as primary cause - admission Hgb 5.9 -> 9.2 - s/p 2 units pRBCs given by ED (started 07/09, finish 07/10) - FOBT screen +; consulted GI, Dr. Diaz, appreciate recs. Upper and lower scopes performed. EGD WNL, Colonoscopy with hemorrhoids and healthy anastamosis. Rec cont iron and signed off. -Iron studies showed Fe 25, TIBC 189, iron sat 13% -B12 and Folate wnl #Diastolic HF -ECHO Feb 2019: diastolic dysfunction, EF 60-65% -BNP 266 this admission (up from 94 in Feb 2019) -s/p 1 dose of Lasix 40 mg IV on admission. Satting well on RA, lungs CTAB and BLE edema improved with HD #HTN - not on home meds, hydralazine prn - consider addition of home BP meds as still elevated even post dialysis - cont to monitor #IDDM - continue home meds: Lantus 8 units (equiv. of home 9u novolog 70/30 BID dose) - Accuchecks ACHS - diabetes hypoglycemia protocol in place - mild SSI and bedtime correctional scale ordered #Hx of Colon Cancer -patient has had a partial colectomy, due for surveillance colonoscopy -consulted GI, Dr. Diaz, appreciate recs, see above PCP: INDIRA Nguyen Diet: CC 1800 VTE: Heparin 5000 units TID Code status: Cardiac only-pt okay with compressions, IV meds but is NOT okay with defibrillation; does not want to be intubated, discussed with patient and her Dispo: Stable, admitted to inpatient on medical unit. Nephrology consulted, patient started dialysis 07/10, appreciate recs. CM to assist with finding outpatient dialysis bed. Dr. Kaufman plans for fistula this week. Continued IV abx, po steroids, and respiratory support. Addendum - Attending - Attending Attestation Date/Time: 07/14/19 0423 I personally evaluated the patient and discussed the management with Dr. Jernigan. I agree with the History, Examination, Assessment and Plan documented above with any addition or exceptions noted below. Patient doing well. Undergoing HD at this time. Awaiting placement of HD fistula.
[2019-07-14] MEDS: predniSONE 20 MG TAB PO SCH (10:50)
[2019-07-14] MEDS: Amlodipine 10 MG TAB PO SCH (10:50)
[2019-07-14] MEDS: Heparin 5,000 UNITS/ML VIAL SC SCH ×2 (10:51→20:12)
[2019-07-14] MEDS: Gabapentin 100 MG CAP PO SCH ×3 (10:51→20:09)
[2019-07-14] MEDS: Megestrol Acetate 40 MG TAB PO SCH (10:52)
[2019-07-14] MEDS: Famotidine 20 MG TAB PO SCH (10:53)
--- NOTE | 2019-07-14 11:10 | PRG ---
DATE OF SERVICE: 07/14/2019 SUBJECTIVE: A 69-year-old female being seen for end-stage kidney disease. The patient denied nausea, vomiting, or chest pain. OBJECTIVE: GENERAL: The patient is awake and alert. VITAL SIGNS: Afebrile, pulse 100, breathing at 16, and blood pressure 150/82. HEENT: Head normocephalic and atraumatic. Eyes intact, no ulcers. Nose intact, no ulcers. Ears intact, no ulcers. NECK: Supple. No JVD. CHEST: Symmetrical and clear. CARDIOVASCULAR: Shows S1 and S2, no rub, no murmur. GASTROINTESTINAL: Abdomen is soft, bowel sounds positive. EXTREMITIES: Show no edema or ulcers. SKIN: Shows no rash or petechiae. MUSCULOSKELETAL: Shows no joint swelling or stiffness. GENITOURINARY: Shows no Mcnamara or CVA tenderness. NEUROLOGIC: Motor intact. Cranial nerves intact. LABORATORY DATA: Reviewed. ASSESSMENT AND PLAN: 1. Stage 6 chronic kidney disease. Continue hemodialysis. 2. Hypertension, stable. 3. Anemia, stable. 4. Medications based on glomerular filtration rate are appropriate. Job ID: [id number]
[2019-07-14] MEDS: EPOETIN ALFA-EPBX (ESRD) 10,000 UNIT/ML VIAL IVP SCH (11:30)
--- NOTE | 2019-07-14 12:26 | OP ---
DATE OF PROCEDURE: 07/11/2019 PREOPERATIVE DIAGNOSES: End-stage renal disease, acidosis, in need of dialysis access, and lack of n.p.o. status. POSTOPERATIVE DIAGNOSES: End-stage renal disease, acidosis, in need of dialysis access, and lack of n.p.o. status. PROCEDURE PERFORMED: Right femoral vein Trialysis catheter. ANESTHESIA: 1% Xylocaine. DESCRIPTION OF PROCEDURE: With the patient at bedside, after informed consent, right groin was prepared with ChloraPrep and draped in routine fashion. A 1% Xylocaine was infiltrated in the skin and subcutaneous tissue about the operative site. Trocar catheter cannulated the femoral vein, J-wire threaded, trocar catheter removed. Seldinger technique used to place a Trialysis catheter, secured with 3-0 nylon suture. Aspirated in each port with saline and heparin flush solution. The patient tolerated the procedure well. Sterile dressing was applied. Job ID: [id number]
[2019-07-14] MEDS ORDERED: Heparin 10,000 UNITS/ 10 ML VIAL ONE (13:02)
[2019-07-14] MEDS ORDERED: Diphenoxylate HCl/Atropine Tablet PO PRN (17:11)
--- NOTE | 2019-07-14 17:15 | PDOC.PALPN ---
Palliative Progress Note - Subjective Sleeping but arousable. Tearful, onset of loose stools. States she is "exhausted " and knows "she is going to ". - Objective Vital Signs: Vital Signs - Most Recent Temp Pulse Resp BP Pulse Ox 98.1 F 103 H 18 209/91 H 96 07/14/19 08:45 07/14/19 10:50 07/14/19 08:45 07/14/19 08:45 07/14/19 08:45 - Physical Exam Constitutional: ill appearing, mild distress Deviation from normal: mildly cachetic HEENT: moist MMs Respiratory: unlabored breathing Cardiovascular: RRR Gastrointestinal: positive bowel sounds Musculoskeletal: no edema, muscle wasting Neurology: moves all 4 limbs, no focal deficits Skin: fragile Psychiatric: A&O x 3, depressed - Assessment (1) Palliative care encounter Code(s): Z51.5 - ENCOUNTER FOR PALLIATIVE CARE Current Visit: Yes Status: Acute (2) ESRD (end stage renal disease) Code(s): N18.6 - END STAGE RENAL DISEASE Current Visit: Yes Status: Acute (3) Pneumonia Code(s): J18.9 - PNEUMONIA, UNSPECIFIED ORGANISM Current Visit: Yes Status: Acute Qualifiers: Pneumonia type: due to unspecified organism Laterality: right Lung location: unspecified part of lung Qualified Code(s): J18.9 - Pneumonia, unspecified organism (4) Protein-calorie malnutrition, severe Code(s): E43 - UNSPECIFIED SEVERE PROTEIN-CALORIE MALNUTRITION Current Visit: No Status: Acute (5) Sepsis Code(s): A41.9 - SEPSIS, UNSPECIFIED ORGANISM Current Visit: No Status: Acute Qualifiers: Sepsis type: sepsis due to unspecified organism Sepsis acute organ dysfunction status: with acute organ dysfunction Severe sepsis acute organ dysfunction type: acute renal failure Acute renal failure type: unspecified Severe sepsis shock status: without septic shock Qualified Code(s): A41.9 - Sepsis, unspecified organism; R65.20 - Severe sepsis without septic shock; N17.9 - Acute kidney failure, unspecified (6) History of colon cancer Code(s): Z85.038 - PERSONAL HISTORY OF MALIGNANT NEOPLASM OF LARGE INTESTINE Current Visit: No Status: Chronic - Plan Plan: Complains of onset of loose stools this afternoon. Also tearful that she can not sleep at night is is exhausted. Therapeutic listening and emotional support given to patient. had left to return home for a while. Lomotil for diarrhea Melatonin for initial trail to attempt to promote sleep. Also discussed sleep hygeine such as quiet room no screen time with phone or TV. Biotene after oral care to mitigate dry mucous membranes Palliative Care will follow to attempt to visit superintendent terminal goal of care with patient. [40] minutes spent on this encounter with >50% of the time in counseling and coordination of care. - ROS ENT: dry mouth Respiratory: other (denies cough, shortness of breath) Cardiology: other (Denies chest pain or discomfort) Gastrointestinal: diarrhea Musculoskeletal: arthritis/arthralgias Neurological: weakness Psychological: insomia
[2019-07-14] MEDS ORDERED: CEFAZOLIN 2 GM in Premix Bag 1 BAG IVPB SCH (17:45)
[2019-07-14] MEDS ORDERED: Loperamide HCl 1 MG/7.5 ML UDCUP PO PRN (19:32)
[2019-07-14] MEDS: Melatonin 3 MG TAB PO SCH (20:09)
[2019-07-14] MEDS: Mirtazapine 15 MG TAB PO SCH (20:10)
[2019-07-14] MEDS: cefTRIAXone\\ROCEPHIN 1 GM in Sodium Chloride 0.9% 100 ML IVPB SCH (20:10)
[2019-07-14] MEDS: Tuberculin PPD 0.1 ML VIAL I-DERMAL SCH (20:12)
[2019-07-14] MEDS: BIOTENE MOUTH SPRAY 44.3 ML PO SCH (20:13)
[2019-07-14] MEDS ORDERED: Insulin Glargine 10 UNITS in Pre-Filled Syringe 1 EACH SC SCH (21:00)
[2019-07-14] MEDS: Azithromycin 500 MG in Sodium Chloride 0.9% 250 ML 250 ML IVPB SCH (21:28)
[2019-07-14] MEDS: READ PPD TEST SITE PO SCH (21:33)
[2019-07-15] MEDS: BIOTENE MOUTH SPRAY 44.3 ML PO SCH ×6 (02:11→21:21)
[2019-07-15] MEDS ORDERED: Dextrose 50% Abboject 50 ML SYRINGE ONE (05:35)
--- NOTE | 2019-07-15 07:35 | PDOC.FM ---
- Subjective Subjective: Doing well this morning, no acute events overnight. Multiple episodes of non- bloody diarrhea yesterday, C dif neg, given lomotil with improvement of sxs. Was tolerating PO well but now NPO for dialysis access placement this AM. Is tearful at times discussing future, but overall eager to move forward and eager for discharge home. No fever/chills, CP, SOB, n/v, Abd pain. - Objective MAR Reviewed: Yes Vital Signs & Weight: Vital Signs (12 hours) Temp Pulse Resp BP Pulse Ox 07/15/19 05:47 87 16 111/61 95 07/14/19 20:35 98.6 F 103 H 20 154/79 H 97 Weight Admit Weight 46 kg Weight 43.4 kg I&O: 07/14/19 07/15/19 07/16/19 06:59 06:59 06:59 Intake Total 240 590 Output Total 0 Balance 240 590 Result Diagrams: 07/15/19 08:27 07/15/19 08:27 Phys Exam - Physical Examination Constitutional: NAD (resting comfortably, tearful at times but overall in good spirits) HEENT: moist MMs Neck: supple Respiratory: no wheezing, no rales, no rhonchi, clear to auscultation bilateral Cardiovascular: RRR, no significant murmur, no rub Gastrointestinal: soft, non-tender, no distention, positive bowel sounds Musculoskeletal: no edema Neurological: non-focal, moves all 4 limbs Psychiatric: normal affect (tearful at times), A&O x 3 Dx/Plan (1) ESRD (end stage renal disease) Code(s): N18.6 - END STAGE RENAL DISEASE Status: Acute (2) Pneumonia Code(s): J18.9 - PNEUMONIA, UNSPECIFIED ORGANISM Status: Acute Qualifiers: Pneumonia type: due to unspecified organism Laterality: right Lung location: unspecified part of lung Qualified Code(s): J18.9 - Pneumonia, unspecified organism (3) Protein-calorie malnutrition, severe Code(s): E43 - UNSPECIFIED SEVERE PROTEIN-CALORIE MALNUTRITION Status: Acute (4) Sepsis Code(s): A41.9 - SEPSIS, UNSPECIFIED ORGANISM Status: Acute Qualifiers: Sepsis type: sepsis due to unspecified organism Sepsis acute organ dysfunction status: with acute organ dysfunction Severe sepsis acute organ dysfunction type: acute renal failure Acute renal failure type: unspecified Severe sepsis shock status: without septic shock Qualified Code(s): A41.9 - Sepsis, unspecified organism; R65.20 - Severe sepsis without septic shock; N17.9 - Acute kidney failure, unspecified - Plan Plan: 69yo F with h/o colon cancer s/p partial colectomy, DMII, HFpEF presented with sepsis 2/2 CAP and newly diagnosed ESRD started on HD #Sepsis 2/2 Pneumonia, sepsis resolved - CXR with findings suggestive of PNA in right perihilar & lung base - septic on admission: tachycardia to 104 and WBC 16, improved since admission - satting well on RA, no fevers - given 1 g Rocephin & 500 mg Azithromycin in ED @ approx. 2200, continue q24 hr. Finished course of Azithro, last dose of Rocephin today. - started oral prednisone 40mg qd 08/10 for suspected eosinophilic pneumonia on recent clinic CT, patient to f/u outpatient with pulmonology for possible bronch. Will need steroid taper. Repeat CXR today, if resolved, can begin steroid taper. - procal 0.43 #ESRD, started on HD - Admission Cr 4.9 with GFR 9 - Dr. Bills consulted, patient started HD 07/10, tolerated well; will cont MWF HD with CM assistance for dialysis chair, appreciate recs - Dr. Kaufman consulted, temporary R fem vein trialysis catheter placed 07/10, plans for permanent placement of HD catheter and dialysis fistula/graft today - patient has refused dialysis in past, but is now open to it if it extends her life, tolerating dialysis well #Diarrhea - VSS, afebrile, benign exam - Cdif negative - given lomotil with improvement of sxs - will check lytes this AM and replace as necessary, cont to monitor #Normocytic Anemia, stable - suspect anemia of chronic disease as primary cause - admission Hgb 5.9 -> 9.2 - s/p 2 units pRBCs given by ED (started 07/09, finish 07/10) - FOBT screen +; consulted GI, Dr. Diaz, appreciate recs. Upper and lower scopes performed. EGD WNL, Colonoscopy with hemorrhoids and healthy anastamosis. Rec cont iron and signed off. -Iron studies showed Fe 25, TIBC 189, iron sat 13%. B12 and Folate wnl #Diastolic HF - ECHO Feb 2019: diastolic dysfunction, EF 60-65% - BNP 266 this admission (up from 94 in Feb 2019) - s/p 1 dose of Lasix 40 mg IV on admission. Satting well on RA, lungs CTAB and BLE edema improved with HD #HTN - not on home meds, hydralazine prn - addition of norvac 10mg daily with improvement of BP, will cont as op and need f/u #IDDM - Episode of hypoglycemia overnight, givn D50, will decrease lantus back from 10u to 8u, SS and monitor - labile BG thus will need carful titration of insulin - Accuchecks ACHS - diabetes hypoglycemia protocol in place - mild SSI and bedtime correctional scale ordered #Hx of Colon Cancer - patient has had a partial colectomy, due for surveillance colonoscopy - consulted GI, Dr. Diaz, appreciate recs, see above PCP: INDIRA Nguyen Diet: NPO for procedure VTE: Heparin 5000 units TID Code status: Cardiac only-pt okay with compressions, IV meds but is NOT okay with defibrillation; does not want to be intubated, discussed with patient and her Dispo: Stable, admitted to inpatient on medical unit. Nephrology consulted, patient started dialysis 07/10, appreciate recs. CM to assist with finding outpatient dialysis bed. Dr. Kaufman plans for permanent dialysis access today. Continued IV abx, po steroids, and respiratory support. Addendum - Attending - Attending Attestation Date/Time: 07/15/19 7684 I personally evaluated the patient and discussed the management with Dr. Jernigan. I agree with the History, Examination, Assessment and Plan documented above with any addition or exceptions noted below. Patient obtaining permanent HD access today. She continues on HD and awaiting outpatient placement for HD chair. Continue steroids, but has completed course of abx therapy. Otherwise doing well and nearing discharge stability.
[2019-07-15] MEDS: predniSONE 20 MG TAB PO SCH (08:38)
[2019-07-15 08:39] LABS: #Basophils 0.1 thou/uL (0.0-0.2); #Eosinphils 0.2 thou/uL (0.0-0.7); #Lymphocytes 3.8 thou/uL (1.20-3.40); #Monocytes 1.1 thou/uL (0.11-0.59); #Neutrophils 7.2 thou/uL (1.40-6.50); %Basophils 0.5 % (0.0-1.0); %Eosinophils 1.5 % (0.0-10.0); %Lymphocytes 30.7 % (21.0-51.0); %Monocytes 8.9 % (0.0-10.0); %Neutrophils 58.5 % (42.0-75.0); Hemoglobin 10.1 g/dL (12.0-16.0); Mean Corpuscular HGB CONC 32.9 g/dL (32.0-36.0); Mean Corpuscular Hemoglobin 31.6 pg (27.0-31.0); Mean Corpuscular Volume 96.1 fL (78.0-98.0); Mean Platelet Volume 8.2 fL (7.4-10.4); Platelet Count 288 thou/uL (130-400); RBC Distribution Width 12.9 % (11.5-14.5); Red Blood Cell (RBC) Count 3.21 mill/uL (4.20-5.40); White Blood Cell (WBC) Count 12.3 thou/uL (4.8-10.8)
[2019-07-15] MEDS: Gabapentin 100 MG CAP PO SCH ×3 (08:39→20:37)
[2019-07-15] MEDS: Amlodipine 10 MG TAB PO SCH (08:42)
[2019-07-15] MEDS: Famotidine 20 MG TAB PO SCH (08:43)
[2019-07-15] MEDS: Megestrol Acetate 40 MG TAB PO SCH (08:43)
[2019-07-15] MEDS: Heparin 5,000 UNITS/ML VIAL SC SCH ×2 (08:44→20:36)
[2019-07-15 09:02] LABS: ALT (SGPT) 23 U/L (8-55); AST (SGOT) 33 U/L (5-34); Albumin 2.3 g/dL (3.4-4.8); Alkaline Phosphatase 74 U/L (40-110); Anion Gap 11 mmol/L (10-20); BUN (Urea Nitrogen) 13 mg/dL (9.8-20.1); Bilirubin, Total 0.2 mg/dL (0.2-1.2); Calc. Creatinine Clearance 18 mL/min (70-130); Calcium 7.2 mg/dL (7.8-10.44); Carbon Dioxide 25 mmol/L (23-31); Chloride 107 mmol/L (98-107); Estimated GFR-MDRD 23; Globulin 3.3 g/dL (2.4-3.5); Glucose 66 mg/dL (80-115); Magnesium 1.5 mg/dL (1.6-2.6); Potassium 3.9 mmol/L (3.5-5.1); Protein, Total 5.6 g/dL (6.0-8.3); Sodium 139 mmol/L (136-145)
[2019-07-15 09:08] LABS: Phosphorus 1.7 mg/dL (2.3-4.7)
[2019-07-15] MEDS ORDERED: Potassium Phosphate 9 MMOL in Sodium Chloride 0.9% 100 ML IVPB SCH (09:30)
[2019-07-15] MEDS ORDERED: PHENYLEPHRINE-NS 100 MCG/ML 10 ML SYRINGE ONE (09:47)
[2019-07-15] MEDS ORDERED: Calcium Chloride 1 GM/10 ML Abboject SYRINGE ONE (09:47)
[2019-07-15] MEDS ORDERED: PROPOFOL 200 MG/20 ML VIAL ONE (09:47)
[2019-07-15] MEDS ORDERED: EPHEDRINE 25 MG/5 ML SYRINGE ONE (09:47)
[2019-07-15] MEDS: Magnesium Oxide 400 MG TAB PO SCH ×2 (09:49→20:37)
--- NOTE | 2019-07-15 09:59 | PRG ---
DATE OF SERVICE: 07/15/2019 SUBJECTIVE: A 69-year-old female, being seen for end-stage renal disease. The patient denied nausea, vomiting, or chest pain. OBJECTIVE: See above. Awake, alert, in no acute distress. VITAL SIGNS: Afebrile, pulse 87, breathing 16, and blood pressure 142/95. GENERAL APPEARANCE AND MENTAL STATUS: Fair. HEAD/NECK: Normocephalic. Atraumatic. EYES: EOMI. No deformity. EARS: Clear. No ulcers. NOSE: Intact. No lesions. MOUTH: Clear. No discharge. THROAT: Clear. No exudate. LUNGS: Clear. No crackles. CARDIAC: S1, S2. No rub. ABDOMEN: Benign. Bowel sounds positive. GENITALIA/RECTUM: Mcnamara absent. BACK/EXTREMITIES: Edema 0+. NEUROLOGICAL: Alert and motor intact. SKIN: LYMPHATICS: LABORATORY DATA: Reviewed. ASSESSMENT AND PLAN: 1. Stage 6 chronic kidney disease. Continue hemodialysis. 2. Hypertension, stable. 3. Anemia, stable. 4. Medication based on GFR appropriate. Job ID: [id number]
[2019-07-15] MEDS ORDERED: Midazolam HCl 2 mg/2 ml Vial ONE (10:22)
[2019-07-15] MEDS ORDERED: Fentanyl 100 MCG/2 ML VIAL ONE ×2 (10:22→13:27)
[2019-07-15] MEDS ORDERED: Heparin 5,000 UNITS/ML VIAL ONE (12:42)
[2019-07-15] MEDS ORDERED: Bupivacaine PF 0.5% 30 ML VIAL ONE (12:42)
[2019-07-15] MEDS ORDERED: Lidocaine 1% w/Epinephrine 1:100K 20 ML VIAL ONE (12:42)
[2019-07-15] MEDS ORDERED: Lidocaine 2% PF 5 ML VIAL ONE (12:42)
[2019-07-15] MEDS ORDERED: Protamine Sulfate 50 MG/5 ML VIAL ONE (12:42)
[2019-07-15] MEDS ORDERED: Heparin 10,000 UNITS/1 ML VIAL ONE (12:49)
[2019-07-15] MEDS ORDERED: Sodium Chloride 0.9% 20 ML ONE (12:49)
[2019-07-15] MEDS ORDERED: Acetaminophen 500 MG TAB PO PRN (15:36)
[2019-07-15] MEDS ORDERED: traMADol HCl 50 MG TAB PO PRN (15:36)
[2019-07-15] MEDS ORDERED: Metoprolol Tartrate 5 MG/5 ML VIAL ONE (15:56)
--- NOTE | 2019-07-15 16:06 | RAD ---
XR Chest 1 View Portable History: Central line placement Comparison: Radiograph July 10, 2019 Findings: Dialysis catheter tip projects over the inferior SVC. Left IJ central venous catheter tip p rojects over the right atrium. Similar appearance of the large effusions. Mild volume overload. No pneumothorax. Appears be a catheter projecting over the right side of the lower midline abdomen/pelvis. Impression: Uncomplicated placement left IJ central venous catheter and right IJ dialysis catheter.
[2019-07-15] MEDS: HumaLOG 300 UNITS/3 ML VIAL SC PRN ×2 (17:17→22:08)
--- NOTE | 2019-07-15 19:53 | OP ---
DATE OF PROCEDURE: 07/15/2019 PREOPERATIVE DIAGNOSES: End-stage renal disease for IV access, poor veins by ultrasound vein mapping, thrombus, and the only good vein left antecubital, had a previous IV that I removed. POSTOPERATIVE DIAGNOSES: End-stage renal disease for IV access, poor veins by ultrasound vein mapping, thrombus, and the only good vein left antecubital, had a previous IV that I removed with thrombosed left cephalic vein beyond salvage. PROCEDURES PERFORMED: Right IJ cuffed tunneled hemodialysis catheter, left IJ central line, and ultrasound fluoroscopy used. Exploration of left antecubital area finding the vein to be thrombosed with thrombectomy unsuccessful. Left upper arm tapered graft 4T07, PTFE brachial artery axillary vein. No axillary vein of excellent caliber. ANESTHESIA: General, local 0.5% with Marcaine 30 mL, 1% Xylocaine with epinephrine 20 mL. DESCRIPTION OF PROCEDURE: The patient was taken to the operating room, where under general anesthesia (refused block), neck and chest, left upper extremity, axilla, and chest prepared with ChloraPrep and draped in routine fashion. Local anesthetic was infiltrated in the skin and subcutaneous tissue about the operative site. Using ultrasound guidance, the right and left internal jugular veins were cannulated with a trocar catheter. J-wire was threaded. Trocar catheter removed. Skin site enlarged sharply at the J-wire entrance site on both sides of the neck. Stab incision was made in the right chest. Using the tunneling device and Seldinger technique, the right IJ cuffed tunneled hemodialysis catheter placed, pre-curved AngioDynamics using the Peel-Away sheath removing the J-wire, closing the platysma with 4-0 Monocryl, skin with subdermal 4-0 Monocryl and [place] glue applied. Each port aspirated blood and flushed with saline solution, heparinized saline solution 1000 units of heparin per mL indicating volume of the port. Seldinger technique used to place a triple-lumen catheter in the left IJ and secured with 3-0 nylon suture. Each port aspirated, blood flushed with saline solution. Fluoroscopic catheter noted to be in good position. Incision was made in the proximal volar forearm just below the antecubital fossa, carried down through skin and subcutaneous tissue and the cephalic vein dissected free as good caliber. I had a good perforating branch. Antecubital vein forearm into the cephalic vein identified and cephalic vein ligated on the hand side with 3-0 silk suture, transected, spatulated, and a 5-Krysten catheter passed and would not pass beyond the distal cephalic vein in the upper arm above the antecubital fossa. For this reason, this vein was ligated. Subcutaneous tissue was approximated with 3-0 Monocryl, skin with subdermal 4-0 Monocryl. Attention was turned to the upper arm point, where an incision was made just above the antecubital fossa longitudinally, carried down through skin and subcutaneous tissue, fascia, identifying the large brachial artery controlling the silastic vessel loop. Incision was made in the left axilla and the deep axillary fascia identifying large axillary vein. This was dissected free, controlled proximally and distally with silastic [place] loops. The patient given 6000 units of heparin intravenously. Using the tunneling device, the tapered PTFE graft 4T07 tunneled between the 2 incisions placing the taper end over the artery. After adequate heparin circulation time, the right brachial artery was clamped proximally and distally. The arteriotomy was made sharply, elongated with Lawrence scissors and tapered again with the PTFE graft appropriately spatulated and anastomosed to the side brachial artery using continuous suture of 6-0 Prolene releasing clamps noting excellent flow in the graft. Vascular clamp placed on the graft. Axillary vein controlled proximally and distally with silastic vessel loops and longitudinal venotomy made and elongated sharply for 3 cm anastomosis using stay sutures of 6-0 Prolene anastomosis created with continuous suture of 6-0 Prolene. Vascular clamp was released, releasing arterial inflow and it feels nicely and the venous outflow released and the vein dilated nicely was very large. Good hemostasis noted and obtained with 6-0 Prolene. Hemostasis assured. Surgicel applied. The patient given 50 mg of protamine intravenously. Subcutaneous tissue was approximated with 3-0 Monocryl. Skin with subdermal 4-0 Monocryl and [place] glue applied. Job ID: [id number]
[2019-07-15] MEDS: Mirtazapine 15 MG TAB PO SCH (20:37)
[2019-07-15] MEDS: Melatonin 3 MG TAB PO SCH (20:37)
[2019-07-15] MEDS ORDERED: Magnesium Oxide 400 MG TAB PO SCH (21:00)
[2019-07-15] MEDS: cefTRIAXone\\ROCEPHIN 1 GM in Sodium Chloride 0.9% 100 ML IVPB SCH (21:00)
[2019-07-15] MEDS ORDERED: Insulin Glargine 8 UNITS in Pre-Filled Syringe 1 EACH SC SCH (21:00)
[2019-07-15] MEDS ORDERED: Loperamide HCl 2 MG CAP PO PRN (22:19)
[2019-07-16] MEDS: BIOTENE MOUTH SPRAY 44.3 ML PO SCH ×4 (03:43→13:18)
[2019-07-16 03:54] LABS: Anion Gap 16 mmol/L (10-20); BUN (Urea Nitrogen) 21 mg/dL (9.8-20.1); Calc. Creatinine Clearance 14 mL/min (70-130); Calcium 7.6 mg/dL (7.8-10.44); Carbon Dioxide 20 mmol/L (23-31); Chloride 105 mmol/L (98-107); Estimated GFR-MDRD 18; Glucose 346 mg/dL (80-115); Magnesium 1.7 mg/dL (1.6-2.6); Potassium 4.7 mmol/L (3.5-5.1); Sodium 136 mmol/L (136-145)
[2019-07-16 04:28] LABS: Phosphorus 2.8 mg/dL (2.3-4.7)
[2019-07-16 05:45] VITALS: BMI 20.5
[2019-07-16] MEDS: HumaLOG 300 UNITS/3 ML VIAL SC PRN (06:59)
--- NOTE | 2019-07-16 08:24 | PDOC.FM ---
Addendum entered and electronically signed by Brayden Jernigan MD 07/16/19 10:02 : Correction: L upper ext fistula placed by Gen surg on 07/14. Original Note: - Subjective Subjective: Doing well this morning, no acute events overnight. Nurse reports pt's diet is very inconsistent and brings in outside food many times. Her BG as thus been very liable. Speaking with pt this morning, she states it is hard to afford healthy foods and her diet is varies greatly. Spoke at length on appropriate DM and renal diet and pt voiced understanding and states she will do her best to adhere. Otherwise, pt doing well with no acute concerns. Eager for discharge. No CP/SOB/n/v. Tolerating HD well. Tolerated placement of lines yesterday well without complications. - Objective MAR Reviewed: Yes Vital Signs & Weight: Vital Signs (12 hours) Temp Pulse Resp BP Pulse Ox 07/16/19 08:05 96 07/16/19 03:00 96 07/16/19 00:03 99.4 F 112 H 16 130/70 96 Weight Admit Weight 46 kg Weight 52.39 kg I&O: 07/15/19 07/16/19 07/17/19 06:59 06:59 06:59 Intake Total 590 Output Total 0 Balance 590 Result Diagrams: 07/15/19 08:27 07/16/19 02:44 Phys Exam - Physical Examination Constitutional: NAD (resting comfortable in HD, good spirits, eager for discharge) HEENT: moist MMs Neck: supple Respiratory: no wheezing, no rales, no rhonchi, clear to auscultation bilateral Cardiovascular: RRR, no rub Gastrointestinal: soft, non-tender, no distention, positive bowel sounds Musculoskeletal: no edema Neurological: moves all 4 limbs Psychiatric: normal affect, A&O x 3 Deviation from normal: L IJ central line, R IJ HD cath Dx/Plan (1) ESRD (end stage renal disease) Code(s): N18.6 - END STAGE RENAL DISEASE Status: Acute (2) Pneumonia Code(s): J18.9 - PNEUMONIA, UNSPECIFIED ORGANISM Status: Acute Qualifiers: Pneumonia type: due to unspecified organism Laterality: right Lung location: unspecified part of lung Qualified Code(s): J18.9 - Pneumonia, unspecified organism (3) Protein-calorie malnutrition, severe Code(s): E43 - UNSPECIFIED SEVERE PROTEIN-CALORIE MALNUTRITION Status: Acute (4) Sepsis Code(s): A41.9 - SEPSIS, UNSPECIFIED ORGANISM Status: Acute Qualifiers: Sepsis type: sepsis due to unspecified organism Sepsis acute organ dysfunction status: with acute organ dysfunction Severe sepsis acute organ dysfunction type: acute renal failure Acute renal failure type: unspecified Severe sepsis shock status: without septic shock Qualified Code(s): A41.9 - Sepsis, unspecified organism; R65.20 - Severe sepsis without septic shock; N17.9 - Acute kidney failure, unspecified - Plan Plan: 69yo F with h/o colon cancer s/p partial colectomy, DMII, HFpEF presented with sepsis 2/2 CAP and newly diagnosed ESRD started on HD #Sepsis 2/2 Pneumonia, sepsis resolved - CXR with findings suggestive of PNA in right perihilar & lung base. Repeat CXR with continued effusions and mild improvement from previous exam. 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 Will need steroid taper. Repeat CXR similar to previous. Will likely cont dose of prednisone to titrate as outpatient, will need close followup. - procal 0.43 #ESRD, started on HD - Admission Cr 4.9 with GFR 9 - Dr. Bird consulted, patient started HD 07/10, tolerated well; will cont MWF HD with CM assistance for dialysis chair, appreciate recs - Dr. Kaufman consulted, L IJ central line and R IJ HD cath placed on 07/14, per report, difficult IV access and no appropriate site for fistula at this time, apprec recs and assistance #Diarrhea, improved - VSS, afebrile, benign exam - Cdif negative. Lytes replaced and corrected. - given lomotil with improvement of sxs #Normocytic Anemia, stable - suspect anemia of chronic disease as primary cause - admission Hgb 5.9 -> 9.2 - s/p 2 units pRBCs given by ED (started 07/09, finish 07/10) - FOBT screen +; consulted GI, Dr. Diaz, appreciate recs. Upper and lower scopes performed. EGD WNL, Colonoscopy with hemorrhoids and healthy anastamosis. Rec cont iron and signed off. -Iron studies showed Fe 25, TIBC 189, iron sat 13%. B12 and Folate wnl #Diastolic HF - ECHO Feb 2019: diastolic dysfunction, EF 60-65% - BNP 266 this admission (up from 94 in Feb 2019) - s/p 1 dose of Lasix 40 mg IV on admission. Satting well on RA, lungs CTAB and BLE edema improved with HD #HTN - not on home meds, hydralazine prn - addition of norvac 10mg daily with improvement of BP, and now at goal, will cont as op and need f/u #IDDM - very labile BG and variable diet. Will cont Lantus 8u and instructed pt on proper diet. Will need close op monitoring and carful titration of insulin to avoid hypoglycemia - Accuchecks ACHS - diabetes hypoglycemia protocol in place - mild SSI and bedtime correctional scale ordered #Hx of Colon Cancer - patient has had a partial colectomy, due for surveillance colonoscopy - consulted GI, Dr. Diaz, appreciate recs, see above PCP: INDIRA Nguyen Diet: Renal, CC VTE: Heparin 5000 units TID Code status: Cardiac only-pt okay with compressions, IV meds but is NOT okay with defibrillation; does not want to be intubated, discussed with patient and her Dispo: Stable, admitted to inpatient on medical unit. Nephrology consulted, patient started dialysis 07/10, appreciate recs. CM to assist with finding outpatient dialysis chair. Dr. Kaufman placed HD access. Finished abx. Cont steroids. Anticipate discharge today vs tomorrow. Addendum - Attending - Attending Attestation Date/Time: 07/16/19 1655 I personally evaluated the patient and discussed the management with Dr. Jernigan. I agree with the History, Examination, Assessment and Plan documented above with any addition or exceptions noted below. Patient doing well. Received fistula and HD catheter yesterday. She is currently undergoing dialysis. Nearing stability for discharge, once outpatient HD set up. 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
[2019-07-16] MEDS ORDERED: Heparin 10,000 UNITS/ 10 ML VIAL ONE (09:52)
[2019-07-16] MEDS: EPOETIN ALFA-EPBX (ESRD) 10,000 UNIT/ML VIAL IVP SCH (10:34)
[2019-07-16] MEDS: Megestrol Acetate 40 MG TAB PO SCH (11:44)
[2019-07-16] MEDS: Amlodipine 10 MG TAB PO SCH (11:45)
[2019-07-16] MEDS: Gabapentin 100 MG CAP PO SCH ×2 (11:45→16:04)
[2019-07-16] MEDS: predniSONE 20 MG TAB PO SCH (11:45)
[2019-07-16] MEDS: Famotidine 20 MG TAB PO SCH (11:45)
[2019-07-16] MEDS: Heparin 5,000 UNITS/ML VIAL SC SCH (11:47)
[2019-07-16 11:54] VITALS: TEMP 98.6
--- NOTE | 2019-07-16 12:38 | PRG ---
DATE OF SERVICE: 07/16/2019 Vilma Mann is doing well today. She had a left upper arm dialysis graft due to antecubital vein thrombosis due to IV access on admission for chronic kidney disease iatrogenic. The patient reports good hand function. She is having some pain control with analgesics. Left upper arm graft has a good thrill and bruit. Hand function is normal with good hand mail technician. At this point, I will see her as needed, and she should follow up in my office in 2 to 3 weeks. She should use that hand. Job ID: [id number]
--- NOTE | 2019-07-16 14:19 | PRG ---
DATE OF SERVICE: 07/16/2019 SUBJECTIVE: This is a 69-year-old female being seen for end-stage renal disease. The patient denied nausea, vomiting or chest pain. OBJECTIVE: GENERAL: The patient is awake and alert. VITAL SIGNS: Afebrile, pulse 104, breathing 16, blood pressure 113/74. HEENT: Head normocephalic and atraumatic. Eyes intact, no ulcers. Nose intact, no ulcers. Ears intact, no ulcers. NECK: Supple. No JVD. CHEST: Symmetrical and clear. CARDIOVASCULAR: Shows S1 and S2, no rub, no murmur. GASTROINTESTINAL: Abdomen is soft, bowel sounds positive. EXTREMITIES: Show no edema or ulcers. SKIN: Shows no rash or petechiae. MUSCULOSKELETAL: Shows no joint swelling or stiffness. GENITOURINARY: Shows no Mcnamara or CVA tenderness. NEUROLOGIC: Motor intact. Cranial nerves intact. LABORATORY DATA: Reviewed. ASSESSMENT: 1. Stage 6 chronic kidney disease, stable. 2. Hypertension, stable. 3. Anemia, stable. 4. Medication based on GFR appropriate. Job ID: [id number]
[2019-07-16 17:03] VITALS: BP 126/70
--- NOTE | 2019-07-17 12:49 | DIS ---
DATE OF ADMISSION: 07/10/2019 DATE OF DISCHARGE: 07/16/2019 RESIDENT: Brayden Jernigan MD ADMITTING ATTENDING: Jai Aguilar MD DISCHARGE ATTENDING: Casey Ruff MD. CONSULTS: 1. GI, Dr. Diaz. 2. General Surgery, Dr. Kaufman. 3. Nephrology, Dr. Nur. PROCEDURES: 1. Right femoral vein Trialysis catheter placed by Dr. Kaufman on 07/11/2019. 2. Right IJ cuffed tunneled hemodialysis catheter, left IJ central line, left upper arm tapered graft, performed by Dr. Kaufman on 07/15/2019. 3. Colonoscopy performed on 07/12/2019, with Dr. Diaz demonstrating healthy anastomosis with hemorrhoids. 4. EGD on 07/12/2019, by Dr. Diaz demonstrating normal gastroscopy. 5. Chest x-ray on 07/10/2019, demonstrating findings worrisome for pneumonia in the right perihilar region and right lung base. Small bilateral pleural effusions with atelectasis, greater on the right. 6. Ultrasound venous mapping performed on 07/11/2019. 7. Chest x-ray on 07/15/2019, demonstrating uncomplicated placement of left IJ central venous catheter and right IJ dialysis catheter. Similar appearance of effusions. 8. Transfusion of 2 units of packed red blood cells on 07/09 and 07/11/2019. 9. Hemodialysis on Sunday, Sunday, Sunday. PRIMARY DIAGNOSES: 1. Sepsis secondary to pneumonia. 2. End-stage renal disease, started on hemodialysis. 3. Acute on chronic normocytic anemia. SECONDARY DIAGNOSES: 1. Diarrhea, improved. 2. Diastolic heart failure. 3. Hypertension. 4. Insulin-dependent type 2 diabetic. 5. History of colon cancer. DISCHARGE MEDICATIONS: 1. Gabapentin 100 mg p.o. t.i.d. 2. Megace 40 mg p.o. daily. 3. Senokot two tablets p.o. b.i.d. p.r.n. 4. Acetaminophen 650 mg p.o. q.4 hours p.r.n. 5. MiraLAX 17 g p.o. daily. 6. Epogen subcu q.7 days. 7. Insulin 3 units subcu b.i.d. 8. Remeron 7.5 mg p.o. at bedtime. 9. Amlodipine 10 mg p.o. daily. 10. Prednisone 40 mg p.o. q.a.m. x10 days to titrate as directed by primary care physician upon followup. HISTORY OF PRESENT ILLNESS AND HOSPITAL COURSE: The patient is a pleasant 69-year-old female who presented to for admission due to abnormal lab work at clinic that demonstrated hemoglobin of 6.2 with GFR of 11 and a BUN of 66 and creatinine 2.6. Additionally, she reported that she was having symptoms of increased fatigue, shortness of breath, increased wheezing, constant chills, increased lower extremity edema. In the ED, she was given Lasix, Rocephin, azithromycin, found to have an area concerning for pneumonia on the right and bilateral pleural effusions. She was admitted for sepsis secondary to this pneumonia. Regarding her pneumonia, she was continued on Rocephin and azithromycin and finished a complete antibiotic course. 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 She responded very well to steroids and initially requiring supplemental O2 and then weaned to room air appropriately. Her vital signs stabilized. She did not spike any more fevers. Her blood culture and urine cultures were no growth to date. Repeat chest x-ray on the day prior to discharge demonstrated no significant changes and thus , the steroids were continued at 40 mg daily. This will need to be titrated by her primary care physician to decrease 5 mg weekly once symptoms and chest x-ray demonstrate resolution of pneumonia to down titrate to off steroids. The patient will also need to follow up with a cash person for bronchoscopy for definitive diagnosis. This plan was discussed with the patient who voiced agreement and understanding. Dr. Bird with Nephrology was consulted, who started the patient on hemodialysis. She was started on a Sunday, Sunday, Sunday regimen and tolerated this very well. Dr. Kaufman was consulted, who initially placed a Trialysis catheter for dialysis. This was exchanged for the left IJ central line, right IJ hemodialysis catheter and a fistula was placed on the left for long-term hemodialysis access. Case Management was consulted to arrange for the dialysis bed and the patient was provided a Mac dialysis bed at the time of discharge. She continued to tolerate this well and her electrolytes were stable and replaced as necessary. Regarding the patient's normocytic anemia, she does have a history of colon cancer status post anastomosis many years ago, thus GI was consulted and the patient was given 2 units of packed red blood cells in the emergency department. GI, Dr. Diaz did an upper and lower endoscopy. They were essentially within normal limits with hemorrhoids and felt that the anastomosis was very healthy. They recommended continued iron supplementation for iron deficiency anemia and no further GI intervention at this time. B12 and folate were within normal limits. Throughout the hospitalization, the patient did very well and slowly returned to baseline just requiring time for hemodialysis to be set up as an outpatient and access to be obtained. The patient did have a few episodes of diarrhea. This increased to greater than 4 episodes a day and thus C diff was checked and negative and this diarrhea did improve with cessation of antibiotics. Regarding the patient's chronic medical conditions, the patient has hypertension, however was not on any home medications. She was started on Norvasc 10 mg daily with great improvement of her blood pressure, this will be continued as an outpatient and needs continued followup. Regarding the patient's insulin-dependent diabetes, her blood sugar is very labile and alternates from in the 70s and even a few hypoglycemic episodes to the 40s to over 300. Insulin was continued from home and up titrated initially; however, the patient had hypoglycemic episode and that was decreased to her home regimen. It was discussed with patient that she needs to have a consistent diet and per nursing report, the patient was having many meals brought in from outside. Discussed with the patient at length the need for a carb consistent renal high-protein diet for appropriate titration of her glucose for her diabetes. The patient voiced agreement understanding of this and stated that she will try. She will be discharged home on her home insulin regimen and needs to follow up with her primary care physician for close management. At the time of discharge, the patient was stable, very eager to be discharged home. Hemodialysis was arranged and discharge plan was discussed at length with the patient, who voiced agreement and understanding of this discharge plan. All questions were answered appropriately. DISPOSITION: Stable. DISCHARGE INSTRUCTIONS: 1. Location: Home. 2. Diet: renal, carb consistent. 3. Activity, as tolerated. 4. Followup: a. The patient is to follow up with Nephrology as directed within 1 week. b. The patient is to follow up with Gastroenterology as directed. c. The patient is to follow up with Dr. Kaufman within 2 to 3 weeks. d. The patient is to follow up with her primary care physician within one week of discharge. e. The patient is to follow up with Pulmonology within 2 weeks of discharge. Job ID: [id number] MTDD
== END 2019-07-16 16:51 | disposition home or self-care (01) | DRG 853 ==
LOC: ERS 19:25 → ONC 22:40
PROVIDERS: ADMIT Emergency Medicine; ATTEND Emergency Medicine
PROC: 30233N1 Transfusion of Nonautologous Red Blood Cells into Peripheral Vein, Percutaneous Approach (ICD-10-PCS; principal; 2019-07-10)
PROC: 5A1D70Z Performance of Urinary Filtration, Intermittent, Less than 6 Hours Per Day (ICD-10-PCS; 2019-07-11)
PROC: 02HV33Z Insertion of Infusion Device into Superior Vena Cava, Percutaneous Approach (ICD-10-PCS; 2019-07-11)
PROC: 0DJD8ZZ Inspection of Lower Intestinal Tract, Via Natural or Artificial Opening Endoscopic (ICD-10-PCS; 2019-07-12)
PROC: 0DJ08ZZ Inspection of Upper Intestinal Tract, Via Natural or Artificial Opening Endoscopic (ICD-10-PCS; 2019-07-12)
PROC: 0JH63XZ Insertion of Tunneled Vascular Access Device into Chest Subcutaneous Tissue and Fascia, Percutaneous Approach (ICD-10-PCS; 2019-07-15)
PROC: 02HV33Z Insertion of Infusion Device into Superior Vena Cava, Percutaneous Approach (ICD-10-PCS; 2019-07-15)
PROC: B5181ZA Fluoroscopy of Superior Vena Cava using Low Osmolar Contrast, Guidance (ICD-10-PCS; 2019-07-15)
PROC: 05JY0ZZ Inspection of Upper Vein, Open Approach (ICD-10-PCS; 2019-07-15)
DX: A41.9 Sepsis, unspecified organism (principal); J18.9 Pneumonia, unspecified organism; N18.6 End stage renal disease; E43 Unspecified severe protein-calorie malnutrition; I50.32 Chronic diastolic (congestive) heart failure; J90 Pleural effusion, not elsewhere classified; E87.2 Acidosis; I13.2 Hypertensive heart and chronic kidney disease with heart failure and with stage 5 chronic kidney disease, or end stage renal disease; L89.152 Pressure ulcer of sacral region, stage 2; R65.20 Severe sepsis without septic shock; D50.9 Iron deficiency anemia, unspecified; D63.1 Anemia in chronic kidney disease; F32.9 Major depressive disorder, single episode, unspecified; R19.7 Diarrhea, unspecified; E87.5 Hyperkalemia; E11.22 Type 2 diabetes mellitus with diabetic chronic kidney disease; K64.9 Unspecified hemorrhoids; Z79.4 Long term (current) use of insulin; Z99.2 Dependence on renal dialysis; Z85.038 Personal history of other malignant neoplasm of large intestine; Z87.11 Personal history of peptic ulcer disease; Z90.49 Acquired absence of other specified parts of digestive tract; Z68.20 Body mass index [BMI] 20.0-20.9, adult
CPT/HCPCS: 36415; 36416; 36430; 71045; 80048; 80053; 82274; 82607; 82728; 82746; 83540; 83550; 83735; 83880; 84100; 84134; 84145; 84484; 85025; 86580; 86704; 86705; 86706; 86803; 86850; 86900; 86901; 87324; 87340; 87449; 90935; 93005; 93970; 96374; C1752; C1769; G0257; G0365; J0456; J0690; J0696; J1642; J1644; J1815; J2001; J2250; J2704; J2720; J3010; J3490; J7050; J7512; L8670; P9016; Q5105; S0020; S0028; S0179

== ENCOUNTER 2019-09-26 14:14 | Inpatient (IN) | payer MEDICARE, OTHER ==
[2019-09-26] MEDS ORDERED: Cefepime 2 GM VIAL ONE (15:00)
[2019-09-26 15:08] LABS: #Eosinphils 0.3 thou/uL (0.0-0.7); #Lymphocytes 2.2 thou/uL (1.20-3.40); #Monocytes 0.9 thou/uL (0.11-0.59); #Neutrophils 8.8 thou/uL (1.40-6.50); %Basophils 0.4 % (0.0-1.0); %Eosinophils 2.2 % (0.0-10.0); %Lymphocytes 18.1 % (21.0-51.0); %Monocytes 7.4 % (0.0-10.0); %Neutrophils 71.9 % (42.0-75.0); Hemoglobin 9.3 g/dL (12.0-16.0); Mean Corpuscular HGB CONC 31.1 g/dL (32.0-36.0); Mean Platelet Volume 8.4 fL (7.4-10.4); Platelet Count 370 thou/uL (130-400); RBC Distribution Width 14.7 % (11.5-14.5); Red Blood Cell (RBC) Count 2.92 mill/uL (4.20-5.40); White Blood Cell (WBC) Count 12.2 thou/uL (4.8-10.8)
[2019-09-26 15:13] LABS: INR-International Normal Ratio 1.2; Prothrombin Time 15.1 sec (12.0-14.7)
[2019-09-26 15:14] LABS: PTT 41.5 SEC (22.9-36.1)
[2019-09-26 15:29] LABS: ALT (SGPT) 12 U/L (8-55); AST (SGOT) 18 U/L (5-34); Albumin 2.9 g/dL (3.4-4.8); Alkaline Phosphatase 114 U/L (40-110); Anion Gap 16 mmol/L (10-20); BUN (Urea Nitrogen) 26 mg/dL (9.8-20.1); Bilirubin, Total 0.3 mg/dL (0.2-1.2); CK (CPK) 176 U/L (29-168); Calc. Creatinine Clearance 0 mL/min (70-130); Calcium 8.3 mg/dL (7.8-10.44); Carbon Dioxide 26 mmol/L (23-31); Chloride 92 mmol/L (98-107); Estimated GFR-MDRD 10; Globulin 4.3 g/dL (2.4-3.5); Glucose 198 mg/dL (80-115); Magnesium 2.2 mg/dL (1.6-2.6); Potassium 3.7 mmol/L (3.5-5.1); Protein, Total 7.2 g/dL (6.0-8.3); Sodium 130 mmol/L (136-145)
--- NOTE | 2019-09-26 15:43 | RAD ---
SINGLE VIEW OF THE CHEST: 09/26/19 COMPARISON: 07/15/19. HISTORY: Altered mental status and hypotension. FINDINGS: Single view of the chest shows an enlarged cardiomediastinal silhouette. There are small bilateral p leural effusions, right greater than left with adjacent atelectasis. Increased interstitial markings are present. IMPRESSION: Bilateral pleural effusions with adjacent atelectasis. POS: EAA
[2019-09-26] MEDS ORDERED: Vancomycin 1 GM/200 ML BAG ONE (15:48)
[2019-09-26 15:49] LABS: Actual Bicarbonate (HCO3a) 23.4 mEq/L (22-28); Analyzer IN Cardio ER; Base Excess (BEa) -2.2 mEq/L (-2.0 to +3.0); CO2 Tension 43.6 mmHg (35.0-45.0); Calcium, Ionized 1.08 mmol/L (1.12-1.30); Carboxyhemoglobin (COHb) 0.4 gm% (0.0-3.0); Hemoglobin (Hb) 9.4 g/dL (12.0-16.0); O2 Tension (PaO2), arterial 70.8 mmHg (> 80.0); Potassium - ABG Lab 3.75 mmol/L (3.70-5.30); pH, Arterial 7.35 (7.35-7.45)
[2019-09-26 15:52] LABS: BHCG - Serum Negative (NEGATIVE); Pregs Control Background? CLEAR/WHITE (CLR/WHITE); Pregs Control Bar Appear? YES (CONTROL BAR)
[2019-09-26 15:56] LABS: Puncture Site RBA
--- NOTE | 2019-09-26 16:06 | PDOC.FPRHP ---
- History of Present Illness Chief Complaint: chest pain ED Course: 30cc/kg NS bolus, 1g Vanc and 2g cefepime - Allergies/Adverse Reactions Allergies Allergy/AdvReac Type Severity Reaction Status Date / Time No Known Drug Allergies Allergy Verified 07/27/19 19:15 - Home Medications Medication Instructions Recorded Confirmed Type Gabapentin [Neurontin] 100 mg PO TID cap 03/01/19 07/11/19 Rx Megestrol Acetate [Megace] 40 mg PO DAILY tab 03/01/19 07/11/19 Rx Sennosides/Docusate Sodium 2 tab PO BID PRN tab 03/01/19 07/11/19 Rx [Senokot S] Acetaminophen 1 - 2 tab PO Q4H PRN 03/03/19 07/11/19 History Acetaminophen 650 mg PO Q4H PRN 03/03/19 07/11/19 History Darbepoetin Hitesh in Polysorbat 60 mcg SC Q7D 03/03/19 07/11/19 History [Aranesp] Polyethylene Glycol 3350 17 gm PO DAILY 03/03/19 07/11/19 History Insulin Regular, Human [Novolin R] 3 units SC BID 07/11/19 07/11/19 History Mirtazapine [Remeron Soltab] 7.5 mg PO HS 07/11/19 07/11/19 History Amlodipine [Norvasc] 10 mg PO DAILY #30 tab 07/16/19 Rx predniSONE 40 mg PO QAM-WM #10 tab 07/16/19 Rx - History PMHx:Colon CA s/p hemicolectomy with primary anastamosis, Insulin Dependent DM II, CKD stage 4, Protein-calorie malnutrition, HTN, MDD, PUD PSHx: hemicolectomy with primary anastamosis, ORIF R hip 2018. FHx: multiple family members with DM2 Social: used to drinks 1-2 glasses of wine a couple of times a week but quit about 2-3 months ago. Denies current tobacco use, quit smoking "20 or so years ago." Denies illicit drug use. - Vital signs BP: 111/60, MAP: 71, Pulse: 94, Resp: 21, Pain: UTR, O2 sat: 98 on (4L Oxygen), Time: 09/26/2019 14:41. FMR H&P: Results - Labs Result Diagrams: 09/26/19 14:26 09/26/19 14:26 Lab results: WBC 12.2 thou/uL (4.8-10.8) H 09/26/19 14:26 Hgb 9.3 g/dL (12.0-16.0) L 09/26/19 14:26 Hct 30.0 % (36.0-47.0) L 09/26/19 14:26 MCV 103.0 fL (78.0-98.0) H 09/26/19 14:26 Plt Count 370 thou/uL (130-400) 09/26/19 14:26 Neutrophils % 71.9 % (42.0-75.0) 09/26/19 14:26 ABG pH 7.35 (7.35-7.45) 09/26/19 15:48 ABG pCO2 43.6 mmHg (35.0-45.0) 09/26/19 15:48 ABG pO2 70.8 mmHg (> 80.0) 09/26/19 15:48 Sodium 130 mmol/L (136-145) L 09/26/19 14:26 Potassium 3.7 mmol/L (3.5-5.1) 09/26/19 14:26 Chloride 92 mmol/L (98-107) L 09/26/19 14:26 Carbon Dioxide 26 mmol/L (23-31) 09/26/19 14:26 BUN 26 mg/dL (9.8-20.1) H 09/26/19 14:26 Creatinine 4.43 mg/dL (0.6-1.1) H 09/26/19 14:26 Glucose 198 mg/dL (80-115) H 09/26/19 14:26 Lactic Acid 1.6 mmol/L (0.5-2.2) 09/26/19 14:26 Calcium 8.3 mg/dL (7.8-10.44) 09/26/19 14:26 Total Bilirubin 0.3 mg/dL (0.2-1.2) 09/26/19 14:26 AST 18 U/L (5-34) 09/26/19 14:26 ALT 12 U/L (8-55) 09/26/19 14:26 Alkaline Phosphatase 114 U/L (40-110) H 09/26/19 14:26 Creatine Kinase 176 U/L (29-168) H 09/26/19 14:26 B-Natriuretic Peptide 213.6 pg/mL (0-100) H 09/26/19 14:26 Serum Total Protein 7.2 g/dL (6.0-8.3) 09/26/19 14:26 Albumin 2.9 g/dL (3.4-4.8) L 09/26/19 14:26 - Radiology Interpretation Chest x-ray Status: image reviewed by me, report reviewed by me Additional comment: Bilateral pleural effusions right greater than left. Interstitial markings FMR H&P: A/P - Problem List (1) Person under investigation for COVID-19 Current Visit: Yes Status: Acute Code(s): Z20.828 - CONTACT W AND EXPOSURE TO OTH VIRAL COMMUNICABLE DISEASES (2) Sepsis due to pneumonia Current Visit: Yes Status: Acute Code(s): J18.9 - PNEUMONIA, UNSPECIFIED ORGANISM; A41.9 - SEPSIS, UNSPECIFIED ORGANISM (3) ESRD (end stage renal disease) Current Visit: No Status: Acute Code(s): N18.6 - END STAGE RENAL DISEASE (4) DM type 2 (diabetes mellitus, type 2) Current Visit: No Status: Chronic Qualifiers: Diabetes mellitus rn long term care insulin use: with chcf use Diabetes mellitus complication status: with kidney complications Diabetes mellitus complication detail: with chronic kidney disease Chronic kidney disease stage : stage 4 (severe) Qualified Code(s): E11.22 - Type 2 diabetes mellitus with diabetic chronic kidney disease; N18.4 - Chronic kidney disease, stage 4 (severe ); Z79.4 - long term care social worker (current) use of insulin (5) History of colon cancer Current Visit: No Status: Chronic Code(s): Z85.038 - PERSONAL HISTORY OF MALIGNANT NEOPLASM OF LARGE INTESTINE (6) Normocytic anemia Current Visit: No Status: Chronic Code(s): D64.9 - ANEMIA, UNSPECIFIED - Plan 69 yo M with ESRD on HD, IDDM2, HTN admitted for sepsis 2/2 PNA, COV19 r/o #. Sepsis 2/2 PNA -WBC 12.2, P 94 -s/p 30cc/kg bolus and 1g Vanc & 2g Cefepime -CXR:b/l pleural effusions with interstitial infiltrates #. ESRD on TTS HD -Sees Dr. Bird outpatient #. Hyponatremia -Na 130 -Stable, likely dilutional component. #. IDDM2 -sliding scale FMR H&P: Upper Level - Plan Date/Time: 09/26/19 8865 I, [], have evaluated this patient and agree with findings/plan as outlined by seo intern resident. Pertinent changes/additions are listed here.
--- NOTE | 2019-09-26 18:01 | PDOC.FPRHP ---
- History of Present Illness Chief Complaint: weakness, confusion History of Present Illness: 69 yo F on ESRD with IDDM presents for AMS and weakness. History relayed by her spouse. Patient was in [place] one week for a dental procedure (tooth pulled). She was planning to fly from [place] to [place] for her mother's . She choked on a hamburger mid flight, heimlich was attempted and unsuccessful, CPR was started on the plane. Defibrillator was placed, shock was not indicated. She coughed up the hamburger during CPR and rapidly improved. They made an emergency landing in [place], her vitals were normal and she refused to go to the hospital for further care. Later that night she collapsed and stopped breathing in her hotel , CPR was initiated by her . When the paramedics arrived she started awakening. She went to [facility]. Her does not know what was done while she was in the hospital, besides that pleural embolus was ruled out. She was discharged to home 2 days ago on augmentin 250-125 once daily. At baseline she can transfer from bed to wheelchair. She has ulcers on her sacrum. also reports she cannot lay flat to sleep, she complains that she can't breathe. She has been extremely weak. Her last dialysis session was Sunday at [facility]. She was supposed to get dialysis today, but she was too weak and couldn't be transferred from wheelchair to bed at dialysis, so her brought her to the ER. states her mentation was improved in the ER after treatment, but she was not quite back to baseline. ED Course: 30cc/kg NS bolus, 1g Vanc and 2g cefepime - Allergies/Adverse Reactions Allergies Allergy/AdvReac Type Severity Reaction Status Date / Time No Known Drug Allergies Allergy Verified 09/26/19 19:47 - Home Medications Medication Instructions Recorded Confirmed Type Gabapentin [Neurontin] 100 mg PO TID cap 03/01/19 07/11/19 Rx Megestrol Acetate [Megace] 40 mg PO DAILY tab 03/01/19 07/11/19 Rx Sennosides/Docusate Sodium 2 tab PO BID PRN tab 03/01/19 07/11/19 Rx [Senokot S] Acetaminophen 1 - 2 tab PO Q4H PRN 03/03/19 07/11/19 History Acetaminophen 650 mg PO Q4H PRN 03/03/19 07/11/19 History Darbepoetin Hitesh in Polysorbat 60 mcg SC Q7D 03/03/19 07/11/19 History [Aranesp] Polyethylene Glycol 3350 17 gm PO DAILY 03/03/19 07/11/19 History Insulin Regular, Human [Novolin R] 3 units SC BID 07/11/19 07/11/19 History Mirtazapine [Remeron Soltab] 7.5 mg PO HS 07/11/19 07/11/19 History Amlodipine [Norvasc] 10 mg PO DAILY #30 tab 07/16/19 Rx predniSONE 40 mg PO QAM-WM #10 tab 07/16/19 Rx - History PMHx: Chronic pressure ulcers on her bottom (had been improved prior to her hospitalization). Colon CA s/p hemicolectomy with primary anastamosis (around 2014), Insulin Dependent DM II, CKD stage 5, Protein-calorie malnutrition, HTN, MDD, PUD, anemia PSHx: hemicolectomy with primary anastamosis, L arm graft. FHx: multiple family members with DM2 Social: used to drinks 1-2 glasses of wine a couple of times a week but quit about 2-3 months ago. Denies current tobacco use, quit smoking "20 or so years ago." Denies illicit drug use. - Review of Systems General: reports: fatigue. denies: fever/chills, weight/appetite/sleep changes (decreased appetite) Eyes: denies: eye pain, vision changes ENT: denies: nasal congestion, rhinorrhea Respiratory: reports: shortness of breath. denies: cough Cardiovascular: reports: edema. denies: chest pain, palpitation Gastrointestinal: reports: diarrhea. denies: nausea, vomiting, constipation, abdominal pain, GI bleeding Genitourinary: reports: other (does not make urine) Skin: reports: lesions (sores on bottom). denies: rashes Musculoskeletal: reports: pain (pain in her legs and feet), swelling (BLE) Neurological: reports: weakness. denies: syncope Psychological: reports: anxiety, depression - Vital signs BP: 111/60, MAP: 71, Pulse: 94, Resp: 21, Pain: UTR, O2 sat: 98 on (4L Oxygen), Time: 09/26/2019 14:41. - Physical Exam Constitutional: NAD, other (AO to person, place, but not time. Patient could state the president's name.) HEENT: normocephalic and atraumatic, PERRLA, EOMI, conjunctiva clear, grossly normal hearing, MMM Neck: supple, trachea midline Heart: RRR, pulses present, other (3+ LE edema, 2/6 holosystolic murmur loudest at left sternal border) Lungs: other (expiratory rhonchi and mild wheezing bilateral mid and lower lobes. Decreased breath sounds at bases.) Abdomen: soft, non-tender, bowel sounds present, no masses/distention Neurological: no focal deficit, other (AO to person and place, could name the president) Skin: good turgor, capillary refill <2 seconds, other (pressure ulcers over sacrum, ulcer on rt lateral malleolus with scab) Heme/Lymphatic: no unusual bruising or bleeding, no purpura Psychiatric: other (poor historian, most history taken from her spouse.) FMR H&P: Results - Labs Result Diagrams: 09/26/19 14:26 09/26/19 14:26 Lab results: WBC 12.2 thou/uL (4.8-10.8) H 09/26/19 14:26 Hgb 9.3 g/dL (12.0-16.0) L 09/26/19 14:26 Hct 30.0 % (36.0-47.0) L 09/26/19 14:26 MCV 103.0 fL (78.0-98.0) H 09/26/19 14:26 Plt Count 370 thou/uL (130-400) 09/26/19 14:26 Neutrophils % 71.9 % (42.0-75.0) 09/26/19 14:26 ABG pH 7.35 (7.35-7.45) 09/26/19 15:48 ABG pCO2 43.6 mmHg (35.0-45.0) 09/26/19 15:48 ABG pO2 70.8 mmHg (> 80.0) 09/26/19 15:48 Sodium 130 mmol/L (136-145) L 09/26/19 14:26 Potassium 3.7 mmol/L (3.5-5.1) 09/26/19 14:26 Chloride 92 mmol/L (98-107) L 09/26/19 14:26 Carbon Dioxide 26 mmol/L (23-31) 09/26/19 14:26 BUN 26 mg/dL (9.8-20.1) H 09/26/19 14:26 Creatinine 4.43 mg/dL (0.6-1.1) H 09/26/19 14:26 Glucose 198 mg/dL (80-115) H 09/26/19 14:26 Lactic Acid 1.6 mmol/L (0.5-2.2) 09/26/19 14:26 Calcium 8.3 mg/dL (7.8-10.44) 09/26/19 14:26 Total Bilirubin 0.3 mg/dL (0.2-1.2) 09/26/19 14:26 AST 18 U/L (5-34) 09/26/19 14:26 ALT 12 U/L (8-55) 09/26/19 14:26 Alkaline Phosphatase 114 U/L (40-110) H 09/26/19 14:26 Ammonia 18 umol/L (18-72) 09/26/19 16:49 Creatine Kinase 176 U/L (29-168) H 09/26/19 14:26 B-Natriuretic Peptide 213.6 pg/mL (0-100) H 09/26/19 14:26 Serum Total Protein 7.2 g/dL (6.0-8.3) 09/26/19 14:26 Albumin 2.9 g/dL (3.4-4.8) L 09/26/19 14:26 FMR H&P: A/P - Problem List (1) Person under investigation for COVID-19 Current Visit: Yes Status: Acute Code(s): Z20.828 - CONTACT W AND EXPOSURE TO OTH VIRAL COMMUNICABLE DISEASES (2) Sepsis due to pneumonia Current Visit: Yes Status: Acute Code(s): J18.9 - PNEUMONIA, UNSPECIFIED ORGANISM; A41.9 - SEPSIS, UNSPECIFIED ORGANISM (3) ESRD (end stage renal disease) Current Visit: No Status: Acute Code(s): N18.6 - END STAGE RENAL DISEASE (4) Pneumonia Current Visit: No Status: Acute Code(s): J18.9 - PNEUMONIA, UNSPECIFIED ORGANISM Qualifiers: Pneumonia type: due to unspecified organism Laterality: right Lung location: unspecified part of lung Qualified Code(s): J18.9 - Pneumonia, unspecified organism (5) Protein-calorie malnutrition, severe Current Visit: No Status: Chronic Code(s): E43 - UNSPECIFIED SEVERE PROTEIN- CALORIE MALNUTRITION (6) Sepsis Current Visit: No Status: Acute Code(s): A41.9 - SEPSIS, UNSPECIFIED ORGANISM Qualifiers: Sepsis type: sepsis due to unspecified organism Sepsis acute organ dysfunction status: with acute organ dysfunction Severe sepsis acute organ dysfunction type: acute renal failure Acute renal failure type: unspecified Severe sepsis shock status: without septic shock Qualified Code(s): A41.9 - Sepsis, unspecified organism; R65.20 - Severe sepsis without septic shock; N17.9 - Acute kidney failure, unspecified (7) DM type 2 (diabetes mellitus, type 2) Current Visit: No Status: Chronic Qualifiers: Diabetes mellitus senior living insulin use: with superintendent marine oil terminal use Diabetes mellitus complication status: with kidney complications Diabetes mellitus complication detail: with chronic kidney disease Chronic kidney disease stage : stage 4 (severe) Qualified Code(s): E11.22 - Type 2 diabetes mellitus with diabetic chronic kidney disease; N18.4 - Chronic kidney disease, stage 4 (severe ); Z79.4 - [facility] (current) use of insulin (8) History of colon cancer Current Visit: No Status: Chronic Code(s): Z85.038 - PERSONAL HISTORY OF MALIGNANT NEOPLASM OF LARGE INTESTINE (9) Macrocytic anemia Current Visit: Yes Status: Acute Code(s): D53.9 - NUTRITIONAL ANEMIA, UNSPECIFIED (10) Elevated alkaline phosphatase level Current Visit: Yes Status: Chronic Code(s): R74.8 - ABNORMAL LEVELS OF OTHER SERUM ENZYMES - Plan 69 yo M with ESRD on HD, IDDM2, HTN admitted for sepsis 2/2 PNA, COV19 r/o # Sepsis 2/2 PNA -Possibly 2/2 aspiration per patient's history of recent choking on a hamburger -WBC 12.2, P 94 -s/p 30cc/kg bolus and 1g Vanc & 2g Cefepime -CXR:b/l pleural effusions with interstitial infiltrates -Continue Vanc and zosyn -trend procal -Blood and urine cultures pending -NPO for speech consult, swallow clearance #Covid R/o -Swab result pending # KIANA on CKD, ESRD on TTS HD -Consulted Dr. 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 LOS >2 midnights. Discharge planning: states that they would like her to go to [facility], after discharge. Case management consulted with post-acute screen placed. Tacho Donald MD PGY2 Addendum - Attending - Attending Attestation Date/Time: 09/26/192229 I personally evaluated the patient and discussed the management with Dr. Donald. I agree with the History, Examination, Assessment and Plan documented above with any addition or exceptions noted below. At the time of my examination, patient has become more altered. She was sleeping heavily but arousable to verbal stimuli. She would not answer questions and quickly fell back to sleep during my examination. She would occasionally follow commands. Nursing states she was more alert when she arrived to the floor. I repeated her vitals in the room. BP 111/78, pulse 94, RR 18, SpO2 99% on 2LNC. BP on presentation low, pulse elevated, and spO2 low. Cardiac and pulmonary exam unremarkable. GCS [id number]. Labs show elevated procal, elevated white count, elevated BNP. ABG unremarkable. CXR shows interval worsening of a bilateral pleural effusion. EKG NSR. Admitted for SIRS w/o a source, hypoxic respiratory distress, and encephlopathy NOS. Given recent history of aspiration and cardiopulmonary arrest, Possible source includes bilateral lower lobe PNA. Will also check UA. COVID r/o in progress due to recent travel and oxygen requirement. Will start vanc and zosyn for broad spectrum coverage due to recent hospitalization. Blood cultures pending. Nephro consulted for HD. If patient continues to deteriorate overnight, will move to IMCU and repeat ABG.
[2019-09-26 19:35] VITALS: BMI 18.9
[2019-09-26] MEDS ORDERED: Loperamide HCl 2 MG CAP PO PRN (19:52)
[2019-09-26] MEDS ORDERED: Dextrose 50% Abboject 50 ML SYRINGE SLOW IVP PRN (20:00)
[2019-09-26] MEDS ORDERED: Dextrose 5% in Water 1,000 ML IV PRN (20:00)
[2019-09-26] MEDS ORDERED: Vancomycin 1 GM in Premix Bag 1 BAG IVPB SCH ×2 (20:45→21:45)
[2019-09-26] MEDS ORDERED: Vancomycin HCl 500 MG in Sodium Chloride 0.9% 100 ML IVPB SCH (21:45)
[2019-09-26] MEDS ORDERED: Piperacillin/Tazobactam 0.75 GM, Admixture Fee 1 EACH in Sodium Chloride 0.9% 50 ML IVPB SCH (21:45)
[2019-09-26] MEDS ORDERED: Vancomycin HCl 750 MG in Sodium Chloride 0.9% 250 ML 250 ML IVPB SCH (21:45)
[2019-09-26] MEDS ORDERED: Vancomycin HCl 250 MG in Sodium Chloride 0.9% 100 ML IVPB SCH (21:45)
[2019-09-26] MEDS ORDERED: HOLD VANCOMYCIN FOR LEVEL >20 FS SCH (21:45)
[2019-09-26] MEDS: Heparin 5,000 UNITS/ML VIAL SC SCH (21:56)
[2019-09-26] MEDS: Piperacillin/Tazobactam 2.25 GM in Sodium Chloride 0.9% 100 ML IVPB SCH (21:57)
[2019-09-26 22:00] LABS: Hemoglobin A1c 9.3 % (4.0-6.0)
[2019-09-27 02:28] LABS: Bacteria/HPF None Seen HPF (None Seen); Bilirubin Negative (Negative); Blood, Urine 2+ (Negative); Clarity Extra Turbid (Clear); Glucose, Urine (Dipstick) 70 mg/dL (Negative); Leukocyte 500 Leu/uL (Negative); Nitrite Negative (Negative); Protein, Urine (Dipstick) 100 mg/dL (Neg-Trace); RBC/HPF 21-50 HPF (0-3); Squamous Epithelial 0-3 HPF (0-3); Urobilinogen Normal mg/dL (Less than 2); WBC/HPF Greater than 50 HPF (0-3); Yeast-Budding 2+ HPF (None Seen)
[2019-09-27 02:31] LABS: Urine Culture Reflex Yes Yes
[2019-09-27 02:33] LABS: Actual Bicarbonate (HCO3a) 24.7 mEq/L (22-28); Base Excess (BEa) -1.1 mEq/L (-2.0 to +3.0); CO2 Tension 46.1 mmHg (35.0-45.0); Calcium, Ionized 1.09 mmol/L (1.12-1.30); Carboxyhemoglobin (COHb) 0.8 gm% (0.0-3.0); Hemoglobin (Hb) 9.6 g/dL (12.0-16.0); Potassium - ABG Lab 4.03 mmol/L (3.70-5.30); pH, Arterial 7.35 (7.35-7.45)
[2019-09-27 02:39] LABS: Puncture Site RBA
[2019-09-27 02:40] LABS: ALV-art Gradient 79.015 (0-20)
[2019-09-27] MEDS: Piperacillin/Tazobactam 2.25 GM in Sodium Chloride 0.9% 100 ML IVPB SCH ×3 (05:01→23:12)
[2019-09-27 05:03] LABS: #Basophils 0.1 thou/uL (0.0-0.2); #Eosinphils 0.3 thou/uL (0.0-0.7); #Lymphocytes 2.1 thou/uL (1.20-3.40); #Neutrophils 11.2 thou/uL (1.40-6.50); %Basophils 0.8 % (0.0-1.0); %Eosinophils 2.3 % (0.0-10.0); %Lymphocytes 14.1 % (21.0-51.0); %Monocytes 6.5 % (0.0-10.0); %Neutrophils 76.3 % (42.0-75.0); Hemoglobin 9.1 g/dL (12.0-16.0); Mean Corpuscular HGB CONC 30.8 g/dL (32.0-36.0); Mean Corpuscular Hemoglobin 31.9 pg (27.0-31.0); Mean Platelet Volume 8.2 fL (7.4-10.4); Platelet Count 362 thou/uL (130-400); RBC Distribution Width 14.7 % (11.5-14.5); Red Blood Cell (RBC) Count 2.85 mill/uL (4.20-5.40); White Blood Cell (WBC) Count 14.6 thou/uL (4.8-10.8)
[2019-09-27 05:23] LABS: ALT (SGPT) 10 U/L (8-55); AST (SGOT) 18 U/L (5-34); Albumin 2.5 g/dL (3.4-4.8); Alkaline Phosphatase 96 U/L (40-110); Anion Gap 14 mmol/L (10-20); BUN (Urea Nitrogen) 29 mg/dL (9.8-20.1); Bilirubin, Total 0.2 mg/dL (0.2-1.2); Calc. Creatinine Clearance 10 mL/min (70-130); Calcium 7.6 mg/dL (7.8-10.44); Carbon Dioxide 24 mmol/L (23-31); Chloride 96 mmol/L (98-107); Estimated GFR-MDRD 11; Globulin 3.7 g/dL (2.4-3.5); Glucose 102 mg/dL (80-115); Protein, Total 6.2 g/dL (6.0-8.3); Sodium 130 mmol/L (136-145)
[2019-09-27] MEDS: Heparin 5,000 UNITS/ML VIAL SC SCH ×3 (07:48→22:08)
--- NOTE | 2019-09-27 07:55 | PDOC.FM ---
- Subjective Subjective: NAEO. Patient is awake, resting comfortably, conversive. no complaints, says breathing is better - Objective MAR Reviewed: Yes Vital Signs & Weight: Vital Signs (12 hours) Temp Pulse Resp BP Pulse Ox 09/27/19 05:29 98.0 F 101 H 8 L 129/64 98 09/27/19 01:30 98.3 F 96 9 L 109/70 99 09/26/19 21:00 95 18 111/66 100 09/26/19 20:00 99 Weight Weight 48.58 kg Result Diagrams: 09/27/19 04:50 09/27/19 04:50 Phys Exam - Physical Examination Constitutional: NAD lower lobe crackles Cardiovascular: RRR, no significant murmur Gastrointestinal: soft Neurological: non-focal 3/5 strength in BLE Psychiatric: A&O x 3 Dx/Plan (1) Person under investigation for COVID-19 Code(s): Z20.828 - CONTACT W AND EXPOSURE TO OTH VIRAL COMMUNICABLE DISEASES Status: Acute (2) Sepsis due to pneumonia Code(s): J18.9 - PNEUMONIA, UNSPECIFIED ORGANISM; A41.9 - SEPSIS, UNSPECIFIED ORGANISM Status: Acute (3) ESRD (end stage renal disease) Code(s): N18.6 - END STAGE RENAL DISEASE Status: Acute (4) DM type 2 (diabetes mellitus, type 2) Status: Chronic Qualifiers: Diabetes mellitus nursing home insulin use: with nursing home use Diabetes mellitus complication status: with kidney complications Diabetes mellitus complication detail: with chronic kidney disease Chronic kidney disease stage : stage 4 (severe) Qualified Code(s): E11.22 - Type 2 diabetes mellitus with diabetic chronic kidney disease; N18.4 - Chronic kidney disease, stage 4 (severe ); Z79.4 - termination clerk (current) use of insulin (5) History of colon cancer Code(s): Z85.038 - PERSONAL HISTORY OF MALIGNANT NEOPLASM OF LARGE INTESTINE Status: Chronic - Plan Plan: 69 yo M with ESRD on HD, IDDM2, HTN admitted for sepsis 2/2 PNA, COV19 r/o # Sepsis 2/2 PNA vs. UTI -Possibly 2/2 aspiration per patient's history of recent choking on a hamburger -WBC 12.2, P 94 -s/p 30cc/kg bolus and 1g Vanc & 2g Cefepime -CXR:b/l pleural effusions with interstitial infiltrates -Continue Vanc and zosyn -Blood and urine cultures pending -Passed bedside swallow, start diet #AHRF 2/2 PNA vs. fluid overload -HD today, Dr. 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 Case management consulted with post-acute screen placed. Addendum - Attending - Attending Attestation Date/Time: 09/27/19 1025 I personally evaluated the patient and discussed the management with Dr. Wolff I agree with the History, Examination, Assessment and Plan documented above with any addition or exceptions noted below. 69 yo F with ESRD on dialysis MWF. ROSC x2 last week at [facility] after choking episode, awaiting records. Missed dialysis x1 this week. Hypotension resolved after fluids in ED. Continue treatment for sepsis PNA vs UTI, awaiting cultures. Patient is talkative and states she is feeling better this AM. Dialysis today to assist with fluid overload. 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
[2019-09-27] MEDS: Acetaminophen 325 MG TAB PO PRN ×2 (08:15→16:43)
[2019-09-27] MEDS ORDERED: Heparin 10,000 UNITS/ 10 ML VIAL ONE (09:37)
[2019-09-27] MEDS ORDERED: Pioglitazone HCl 45 MG TAB PO SCH (11:00)
[2019-09-27] MEDS ORDERED: Gabapentin 100 MG CAP PO SCH (11:00)
[2019-09-27] MEDS: hydrOXYzine 10 MG TAB PO PRN (12:22)
[2019-09-27 15:03] LABS: Vancomycin, Random 14.5 ug/mL (See Comment)
[2019-09-27] MEDS ORDERED: Lorazepam 0.5 MG TAB PO PRN (15:13)
[2019-09-27 19:54] LABS: SARS-CoV-2 MS2 Positive; SARS-CoV-2 N Gene Negative; SARS-CoV-2 S Gene Negative; SARS-CoV-2 orf1ab Negative
--- NOTE | 2019-09-27 21:05 | CON ---
DATE OF CONSULTATION: REASON FOR CONSULTATION: End-stage renal disease for dialysis management. HISTORY OF PRESENT ILLNESS: This is a 69-year-old female, who presented to the hospital with respiratory failure and altered mental status. The patient at this time denies any nausea, vomiting, or chest pain. The patient was using her PAST MEDICAL HISTORY: Significant for end-stage kidney disease, hemicolectomy, hypertension, anemia, peripheral vascular disease, protein-calorie malnutrition, diabetes mellitus, history of left history of tunneled dialysis catheter. SOCIOECONOMIC HISTORY: No alcohol or drug use. FAMILY HISTORY: Negative for ESRD. ALLERGIES: REVIEWED. MEDICATIONS: Home medications list reviewed. Hospital medications list reviewed. REVIEW OF SYSTEMS: Fifteen-point review of system was performed, negative except for positives noted above. HEENT: Eyes intact, no diplopia. Ears: No hearing loss or earache. Nose: No discharge or bleeding. CHEST: No cough or phlegm. ABDOMEN: No nausea or vomiting. GENITOURINARY: No hematuria. No Mcnamara catheter. MUSCULOSKELETAL: No low back pain. No joint swelling or pain. NEUROLOGICAL: No syncope. No seizures. SKIN: No complaints of rash or itching. PSYCHIATRIC: No depression. CONSTITUTIONAL: No weight loss or loss of appetite. PHYSICAL EXAMINATION: GENERAL: The patient is awake and alert. VITAL SIGNS: Afebrile, pulse 75, breathing at 16, blood pressure 130/70. HEENT: Head normocephalic and atraumatic. Eyes intact, no ulcers. Nose intact, no ulcers. Ears intact, no ulcers. NECK: Supple. No JVD. CHEST: Symmetrical and clear. CARDIOVASCULAR: Shows S1 and S2, no rub, no murmur. GASTROINTESTINAL: Abdomen is soft, bowel sounds positive. EXTREMITIES: Show no edema or ulcers. SKIN: Shows no rash or petechiae. MUSCULOSKELETAL: Shows no joint swelling or stiffness. GENITOURINARY: Shows no Mcnamara or CVA tenderness. NEUROLOGIC: Motor intact. Cranial nerves intact. LABORATORY DATA: Reviewed. ASSESSMENT AND PLAN: 1. Stage 6 chronic kidney disease. Plan dialysis. 2. Hypertension, stable. 3. Anemia, stable. 4. Medication based on GFR appropriate. Job ID: [id number]
[2019-09-27] MEDS: Mirtazapine 15 MG Soltab PO SCH (22:08)
[2019-09-28 04:45] LABS: #Eosinphils 0.2 thou/uL (0.0-0.7); #Lymphocytes 1.1 thou/uL (1.20-3.40); #Monocytes 0.6 thou/uL (0.11-0.59); #Neutrophils 12.2 thou/uL (1.40-6.50); %Basophils 0.3 % (0.0-1.0); %Eosinophils 1.1 % (0.0-10.0); %Lymphocytes 8.1 % (21.0-51.0); %Monocytes 4.2 % (0.0-10.0); %Neutrophils 86.4 % (42.0-75.0); Mean Corpuscular HGB CONC 30.3 g/dL (32.0-36.0); Mean Corpuscular Hemoglobin 31.6 pg (27.0-31.0); Mean Platelet Volume 8.5 fL (7.4-10.4); Platelet Count 368 thou/uL (130-400); RBC Distribution Width 14.9 % (11.5-14.5); Red Blood Cell (RBC) Count 2.83 mill/uL (4.20-5.40); White Blood Cell (WBC) Count 14.1 thou/uL (4.8-10.8)
[2019-09-28 04:59] LABS: ALT (SGPT) 11 U/L (8-55); AST (SGOT) 21 U/L (5-34); Albumin 2.7 g/dL (3.4-4.8); Alkaline Phosphatase 100 U/L (40-110); Anion Gap 17 mmol/L (10-20); BUN (Urea Nitrogen) 12 mg/dL (9.8-20.1); Bilirubin, Total 0.2 mg/dL (0.2-1.2); Calc. Creatinine Clearance 17 mL/min (70-130); Calcium 7.7 mg/dL (7.8-10.44); Carbon Dioxide 24 mmol/L (23-31); Chloride 98 mmol/L (98-107); Estimated GFR-MDRD 20; Globulin 3.8 g/dL (2.4-3.5); Glucose 144 mg/dL (80-115); Potassium 3.5 mmol/L (3.5-5.1); Protein, Total 6.5 g/dL (6.0-8.3); Sodium 135 mmol/L (136-145)
[2019-09-28] MEDS: Piperacillin/Tazobactam 2.25 GM in Sodium Chloride 0.9% 100 ML IVPB SCH ×3 (05:28→21:17)
[2019-09-28] MEDS: Acetaminophen 325 MG TAB PO PRN ×3 (05:56→18:09)
--- NOTE | 2019-09-28 07:44 | PDOC.FM ---
- Subjective Subjective: NAEO. Patient remained stable on O2 but was tachycardic just over 100. COVID-19 swab negative. - Objective MAR Reviewed: Yes Vital Signs & Weight: Vital Signs (12 hours) Temp Pulse Resp BP BP Pulse Ox 09/28/19 03:20 97.6 F 104 H 16 123/63 93 L 09/27/19 22:20 97.8 F 102 H 14 136/64 98 09/27/19 20:54 98.1 F 104 H 20 124/52 L 93 L Weight Admit Weight 48.534 kg Weight 48.58 kg I&O: 09/27/19 09/28/19 09/29/19 06:59 06:59 06:59 Intake Total 950 Balance 950 Result Diagrams: 09/28/19 04:27 09/28/19 04:27 Phys Exam - Physical Examination Constitutional: NAD HEENT: moist MMs Neck: supple, full ROM Respiratory: no wheezing, no rales, no rhonchi, clear to auscultation bilateral Cardiovascular: no significant murmur tachycardic with regular rhythm Gastrointestinal: soft Musculoskeletal: no edema Neurological: non-focal, moves all 4 limbs Psychiatric: normal affect, A&O x 3 Skin: no rash Dx/Plan (1) Sepsis due to pneumonia Code(s): J18.9 - PNEUMONIA, UNSPECIFIED ORGANISM; A41.9 - SEPSIS, UNSPECIFIED ORGANISM Status: Acute (2) Macrocytic anemia Code(s): D53.9 - NUTRITIONAL ANEMIA, UNSPECIFIED Status: Chronic (3) Person under investigation for COVID-19 Code(s): Z20.828 - CONTACT W AND EXPOSURE TO OTH VIRAL COMMUNICABLE DISEASES Status: Resolved (4) ESRD (end stage renal disease) Code(s): N18.6 - END STAGE RENAL DISEASE Status: Chronic (5) Leukocytosis Code(s): D72.829 - ELEVATED WHITE BLOOD CELL COUNT, UNSPECIFIED Status: Acute (6) DM type 2 (diabetes mellitus, type 2) Status: Chronic Qualifiers: Diabetes mellitus penitentiary insulin use: with penitentiary use Diabetes mellitus complication status: with kidney complications Diabetes mellitus complication detail: with chronic kidney disease Chronic kidney disease stage : stage 4 (severe) Qualified Code(s): E11.22 - Type 2 diabetes mellitus with diabetic chronic kidney disease; N18.4 - Chronic kidney disease, stage 4 (severe ); Z79.4 - manager long term care (current) use of insulin (7) History of colon cancer Code(s): Z85.038 - PERSONAL HISTORY OF MALIGNANT NEOPLASM OF LARGE INTESTINE Status: Chronic (8) Protein-calorie malnutrition, severe Code(s): E43 - UNSPECIFIED SEVERE PROTEIN-CALORIE MALNUTRITION Status: Chronic (9) Systolic CHF Code(s): I50.20 - UNSPECIFIED SYSTOLIC (CONGESTIVE) HEART FAILURE Status: Chronic - Plan Plan: 69 yo M with ESRD on HD, IDDM2, HTN admitted for sepsis 2/2 PNA, COV19 r/o # Sepsis 2/2 PNA vs. UTI -Possibly 2/2 aspiration per patient's history of recent choking on a hamburger -WBC 12.2, P 94 on presentation. Remains mildly tachy w/ downtrend in WBC compared to yday. Procal also downtrending. -CXR:b/l pleural effusions with interstitial infiltrates & UA dirty. -Bld & Urine Cxs pending, NGTD so far. Continue Vanc & 2g Cefepime pending Cxs. #AHRF 2/2 PNA vs. fluid overload -HD yesterday & patient still requiring O2 to maintain sats. 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 #Covid R/o, resolved -Swab negative # KIANA on CKD, ESRD on TTS HD -Consulted Dr. Bird, her cutting supervisor, appreciate recs -s/p HD yesterday w/ improvemeent in renal fxn this AM. # Hyponatremia, improving -Na 135 this AM. 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 DVT ppx: heparin Diet: Renal, HH, CC PCP: Dr Nguyen, [facility] Code status: Full code Discharge planning: states that they would like her to go to [facility], after discharge. Case management consulted with post-acute screen placed. Addendum - Attending - Attending Attestation Date/Time: 09/28/19 4869 I personally evaluated the patient and discussed the management with Dr. Ramires I agree with the History, Examination, Assessment and Plan documented above with any addition or exceptions noted below. 69 yo F with ESRD on dialysis MWF. ROSC x2 last week at [facility] after choking episode, awaiting records. COVID neg. Dialysis late last night. Still requiring o2 but down trending. Cxs NGTD, continue broad spectrum antibiotics. Patient remains quite anxious. Anticipating inpatient rehab placement in 1-2 days.
[2019-09-28] MEDS: Gabapentin 100 MG CAP PO SCH (09:55)
[2019-09-28] MEDS: Pioglitazone HCl 45 MG TAB PO SCH (09:55)
[2019-09-28] MEDS: Heparin 5,000 UNITS/ML VIAL SC SCH ×3 (09:56→21:17)
[2019-09-28] MEDS: HumaLOG 300 UNITS/3 ML VIAL SC PRN (12:24)
[2019-09-28] MEDS ORDERED: predniSONE 20 MG TAB PO SCH (14:23)
--- NOTE | 2019-09-28 15:23 | PRG ---
DATE OF SERVICE: 09/28/2019 SUBJECTIVE: This is a 69-year-old female, being seen for end-stage renal disease. The patient denied any nausea, vomiting, or chest pain. OBJECTIVE: GENERAL: The patient is awake and alert. VITAL SIGNS: Afebrile, pulse 98, breathing at 16, blood pressure . HEENT: Head normocephalic and atraumatic. Eyes intact, no ulcers. Nose intact, no ulcers. Ears intact, no ulcers. Neck: Supple. No JVD. Chest: Symmetrical and clear. Cardiovascular: Shows S1 and S2, no rub, no murmur. Gastrointestinal: Abdomen is soft, bowel sounds positive. Extremities: Show no edema or ulcers. Skin: Shows no rash or petechiae. Musculoskeletal: Shows no joint swelling or stiffness. Genitourinary: Shows no Mcnamara or CVA tenderness. Neurologic: Motor intact. Cranial nerves intact. LABORATORY DATA: Reviewed. ASSESSMENT AND PLAN: 1. Stage 6 chronic kidney disease, stable. 2. Hypertension, stable. 3. Anemia, stable. 4. Medication based on GFR appropriate. Job ID: [id number]
[2019-09-28] MEDS: Mirtazapine 15 MG Soltab PO SCH (21:16)
[2019-09-29] MEDS: hydrOXYzine 10 MG TAB PO PRN (00:32)
[2019-09-29] MEDS: Piperacillin/Tazobactam 2.25 GM in Sodium Chloride 0.9% 100 ML IVPB SCH (05:43)
[2019-09-29 05:58] LABS: ALT (SGPT) 10 U/L (8-55); AST (SGOT) 18 U/L (5-34); Albumin 2.4 g/dL (3.4-4.8); Alkaline Phosphatase 86 U/L (40-110); Anion Gap 17 mmol/L (10-20); BUN (Urea Nitrogen) 19 mg/dL (9.8-20.1); Bilirubin, Total 0.2 mg/dL (0.2-1.2); Calc. Creatinine Clearance 13 mL/min (70-130); Calcium 7.6 mg/dL (7.8-10.44); Carbon Dioxide 22 mmol/L (23-31); Chloride 97 mmol/L (98-107); Estimated GFR-MDRD 14; Globulin 3.5 g/dL (2.4-3.5); Glucose 231 mg/dL (80-115); Potassium 3.9 mmol/L (3.5-5.1); Protein, Total 5.9 g/dL (6.0-8.3); Sodium 132 mmol/L (136-145)
[2019-09-29 06:04] LABS: #Basophils 0.1 thou/uL (0.0-0.2); %Basophils 0.6 % (0.0-1.0); %Eosinophils 0.1 % (0.0-10.0); %Lymphocytes 9.8 % (21.0-51.0); %Monocytes 0.4 % (0.0-10.0); %Neutrophils 89.1 % (42.0-75.0); Hemoglobin 8.4 g/dL (12.0-16.0); Mean Corpuscular HGB CONC 31.1 g/dL (32.0-36.0); Mean Corpuscular Hemoglobin 32.4 pg (27.0-31.0); Mean Platelet Volume 8.5 fL (7.4-10.4); Platelet Count 350 thou/uL (130-400); RBC Distribution Width 15.1 % (11.5-14.5); White Blood Cell (WBC) Count 10.1 thou/uL (4.8-10.8)
[2019-09-29] MEDS: HumaLOG 300 UNITS/3 ML VIAL SC PRN ×2 (06:19→17:01)
--- NOTE | 2019-09-29 06:21 | PDOC.FM ---
- Subjective Subjective: Pt is very distraught this morning and is having difficulty forming a complete thought. She was unable to get sleep last night. She is complaining of a shooting pain in her left foot. - Objective MAR Reviewed: Yes Vital Signs & Weight: Vital Signs (12 hours) Temp Pulse Resp BP BP Pulse Ox 09/29/19 04:00 98.2 F 96 22 H 105/61 100 09/29/19 03:05 94 L 09/29/19 00:00 97.8 F 99 22 H 102/47 L 102/47 L 94 L 09/28/19 20:00 98.1 F 97 18 123/63 98 Weight Admit Weight 48.534 kg Weight 48.58 kg I&O: 09/27/19 09/28/19 09/29/19 06:59 06:59 06:59 Intake Total 950 Balance 950 Result Diagrams: 09/29/19 05:25 09/29/19 05:25 Phys Exam - Physical Examination Constitutional: NAD HEENT: PERRLA, moist MMs Neck: no nodes, supple Respiratory: no wheezing, no rales, no rhonchi, clear to auscultation bilateral Cardiovascular: RRR, no significant murmur Gastrointestinal: soft, non-tender, positive bowel sounds Musculoskeletal: no edema, pulses present Neurological: normal sensation Deviation from normal: Anxious mood, flat affect Skin: no rash, normal turgor Dx/Plan (1) Sacral ulcer Code(s): L98.429 - NON-PRESSURE CHRONIC ULCER OF BACK WITH UNSPECIFIED SEVERITY Status: Acute (2) Sepsis due to pneumonia Code(s): J18.9 - PNEUMONIA, UNSPECIFIED ORGANISM; A41.9 - SEPSIS, UNSPECIFIED ORGANISM Status: Acute (3) DM type 2 (diabetes mellitus, type 2) Status: Chronic Qualifiers: Diabetes mellitus middle or intermediate school principal insulin use: with middle or intermediate school principal use Diabetes mellitus complication status: with kidney complications Diabetes mellitus complication detail: with chronic kidney disease Chronic kidney disease stage : stage 4 (severe) Qualified Code(s): E11.22 - Type 2 diabetes mellitus with diabetic chronic kidney disease; N18.4 - Chronic kidney disease, stage 4 (severe ); Z79.4 - bed bug exterminator (current) use of insulin (4) ESRD (end stage renal disease) Code(s): N18.6 - END STAGE RENAL DISEASE Status: Chronic (5) Protein-calorie malnutrition, severe Code(s): E43 - UNSPECIFIED SEVERE PROTEIN-CALORIE MALNUTRITION Status: Chronic - Plan Plan: 69 yo M with ESRD on HD, IDDM2, HTN admitted for sepsis 2/2 PNA, COV19 r/o 1. Sepsis 2/2 PNA vs. UTI Possibly 2/2 aspiration per patient's history of recent choking on a hamburger * WBC 12.2 > 10.1, P 94 on presentation. * No longer tachycardiac w/ downtrend in WBC compared to yday. Procal also downtrending. * CXR:b/l pleural effusions with interstitial infiltrates * Bld Cx: NG * Urine Cx: yeast * Currently on Vanc & 2g Cefepime. Will consider transition to PO Abx today. 2. AHRF 2/2 PNA vs. fluid overload HD 09/26 & patient still requiring O2 to maintain sats. * Will consider starting steroids for hx of presumed eosinophilic pneumonia; however, could also be 2/2 possible acute pulm infection. 3. Covid R/o, resolved Swab negative 4. KIANA on CKD, ESRD on TTS HD Consulted Dr. Bird, her market development manager, appreciate recs * s/p HD 09/26 5. Hyponatremia Na 135 > 132 this AM. * Continue to trend 6. IDDM2 Mild sliding scale * Continue home medication: Novolin & Pioglitazone * Will increase gabapentin for neuropathy today 7. Sacral Wound Wound care consulted 8. Macrocytic anemia chronic anemia 2/2 to CKD * Folate and B12 pending 9. Physical Deconditioning PT/OT consulted for post-acute screen 10. Protein/calorie Malnutrition Agency Recruiter consulted, appreciate recs 11. Elevated alk phos Likely 2/2 renal osteodystrophy 12. HTN Holding home medications as hypotensive since admission 13. Anxiety Home meds: Mirtazipine * PRN ativan & hydroxyzine with Seroquel QHS as patient has been incredibly anxious since admission. 14. Yeast Infection Will treat with Diflucan DVT ppx: heparin Diet: Renal, HH, CC PCP: INDIRA Araiza Code status: Full code Discharge planning: Tele inpt for PNA. would like her to go to [facility], after discharge. Case management consulted with post-acute screen placed. Will transition her to PO Abx and treat for yeast infection. Addendum - Attending - Attending Attestation Date/Time: 09/29/19 8784 I personally evaluated the patient and discussed the management with Dr. Jernigan. I agree with the History, Examination, Assessment and Plan documented above with any addition or exceptions noted below. Patient doing well. Her mentation is apparently stable from outpatient per her PCP. She continues on treatment for possible pneumonia. Will stop steroids at this time as no evidence of eosinophilic pneumonitis. She will need rehab screen.
[2019-09-29] MEDS ORDERED: predniSONE 20 MG TAB PO SCH (08:00)
[2019-09-29] MEDS: Pioglitazone HCl 45 MG TAB PO SCH (08:12)
[2019-09-29] MEDS: Heparin 5,000 UNITS/ML VIAL SC SCH ×2 (08:13→15:20)
[2019-09-29] MEDS: Gabapentin 100 MG CAP PO SCH (08:13)
--- NOTE | 2019-09-29 14:13 | PRG ---
DATE OF SERVICE: 09/29/2019 SUBJECTIVE: Patient was seen and examined at bedside and overnight events noted. Patient denies any shortness of breath or chest pain or palpitation. No history of nausea or vomiting or diarrhea or fever or chills or cramps. OBJECTIVE: GENERAL: This is well-built female, in no apparent distress. VITAL SIGNS: Temperature 97, heart rate 101, respiratory rate 18, and blood pressure 124/63. HEENT: Atraumatic, normocephalic. Oral mucosa is moist. NECK: Supple. CARDIOVASCULAR: S1, S2 heard. Rate and rhythm regular. RESPIRATORY: Clear to auscultation. GASTROINTESTINAL: Abdomen is soft. MUSCULOSKELETAL: No tenderness. No edema. DERMATOLOGIC: No skin rash. NEUROLOGIC: Alert and awake and oriented x3. No focal neurologic deficits. Moving all the extremities. PSYCHIATRIC: Mood and affect normal. LABORATORY DATA: Potassium 3.9, BUN is 19, and creatinine is 3.3. ASSESSMENT AND PLAN: 1. End-stage renal disease, continue dialysis. 2. Hypertension. 3. Anemia. 4. Edema, controlled. 5. Continue dialysis as tolerated. Job ID: [id number]
[2019-09-29 16:57] VITALS: BP 99/47; TEMP 99
[2019-09-30] MEDS ORDERED: Azithromycin 250 MG TAB PO SCH (09:00)
[2019-09-30] MEDS ORDERED: Fluconazole 100 MG TAB PO SCH (09:00)
[2019-09-30] MEDS ORDERED: Gabapentin 300 MG CAP PO SCH (09:00)
--- NOTE | 2019-09-30 12:11 | DIS ---
DATE OF ADMISSION: 09/26/2019 DATE OF DISCHARGE: 09/29/2019 ADMITTING ATTENDING: Nahid Joshua MD DISCHARGE ATTENDING: Casey Ruff MD RESIDENT: Carlos Jernigan MD CONSULTS: Nephrology, Dr. Bird, on 09/27/2019. * End-stage renal disease, continue dialysis, hypertension, anemia, edema control, continue dialysis as tolerated. PROCEDURES PERFORMED: Chest x-ray on 09/26/2019, bilateral pleural effusion with adjacent atelectasis. PRIMARY DIAGNOSES: 1. Sepsis secondary to pneumonia 2. Acute hypoxic respiratory failure secondary to pneumonia versus fluid overload 3. COVID rule out 4. End-stage renal disease 5. Hyponatremia 6. Diabetes type 2 7. Sacral wound 8. Macrocytic anemia 9. Physical deconditioning 10. Protein malnutrition, 11. Yeast infection 12. Elevated alkaline phosphatase. SECONDARY DIAGNOSES: 1. Hypertension 2. Anxiety DISCHARGE MEDICATIONS: 1. Azithromycin 250 mg p.o. daily for 2 days. 2. Diflucan 200 mg p.o. daily for 13 days. 3. Neurontin 300 mg daily. 4. Seroquel 25 mg at bedtime. 5. Mirtazapine 15 mg at bedtime. 6. Actos 45 mg p.o. daily. 7. Novolin 7 units subcu b.i.d. 8. Mag oxide 400 mg daily. 9. Megace 40 mg daily. DISCONTINUED MEDICATIONS: Glucagon, sliding scale insulin, dextrose, Ativan, D5W. HISTORY OF PRESENT ILLNESS: A 69-year-old female, end-stage renal disease with diabetes type 2, presents for altered mental status and weakness. History relayed by spouse. The patient was in [place] one week for a dental procedure, tooth pulled. She was planning to fly from [place] to [place] for her mother's . She choked on a hamburger mid flight, Heimlich was attempted and unsuccessful. CPR was started on the plane. Defibrillator was placed. Shock was not indicated. She coughed up the hamburger during CPR and rapidly improved. They made an emergency landing in [place]. Her vitals were normal and she refused to go to the hospital for further care. Later that night, she collapsed and stopped breathing in her hotel. CPR was initiated by her . When the paramedics arrived, she started awakening, she went to [facility]. Her does not know what was done while she was in the hospital besides that pulmonary embolus was ruled out. She was discharged home two days ago on Augmentin 250-125 once daily. At her baseline, she can transfer bed to a wheelchair. She has ulcers on the sacrum. also reports she cannot lie flat to sleep. She complains that she cannot breathe. She has been extremely weak. Her last dialysis session was Sunday at [facility]. She was supposed to get dialysis today, but she was too weak and could not be transferred from wheelchair to bed at dialysis, so her brought her to the ER. states her mentation was improved in the ER after treatment, but she was not quite back to baseline. In the ED, she was given 30 mL/kg normal saline bolus, 1 g of vancomycin, and 2 g of cefepime. 1. Sepsis secondary to pneumonia, possibly secondary to aspiration. a. White blood cell trended from 12 to 10. No longer tachycardic. Procalcitonin downtrending. b. Chest x-ray shows bilateral pleural effusions as noted above. Blood cultures negative. Urine culture shows yeast. Currently on vancomycin and cefepime to transition to azithromycin to finish the course. 2. Acute hypoxic respiratory failure secondary to pneumonia versus fluid overload. a. Hemodialysis on 09/26. The patient no longer requiring oxygen, was on steroids but discontinued. 3. COVID rule out swab negative. 4. End-stage renal disease, dialysis Sunday, , Sunday. Consulted Dr. Bird. 5. Hyponatremia. Sodium 132 before discharge. Follow up outpatient. 6. Diabetes type 2. Mild sliding scale insulin. Continue Novolin and pioglitazone. 7. Neuropathy, left great toe pain. Increase gabapentin from 100 mg daily to 300 mg daily. 8. Sacral wound. Wound care consult to follow up with [facility]. 9. Macrocytic anemia. Chronic anemia secondary to chronic kidney disease. Folate and B12 are within normal limits. 10. Physical deconditioning. a. PT/OT consulted. 11. Protein-calorie malnutrition. Dietitian consulted. Appreciate recs. 12. Elevated alkaline phosphatase, likely secondary to renal osteodystrophy. 13. Hypertension. No home meds. 14. Anxiety. Continue home mirtazapine, Seroquel added at bedtime and hydroxyzine p.r.n. 15. Yeast infection. Treat for two weeks with Diflucan. DISCHARGE INSTRUCTIONS: 1. Location: Rehab. 2. Activity: Restricted, fall risk, cannot walk. 3. Diet: Renal, high-protein, consistent carb, heart healthy. 4. Followup: Follow up with Dr. Nguyen within 7 days of discharge. Job ID: [id number] MTDD
== END 2019-09-29 19:12 | DRG 871 ==
LOC: ERS 14:14 → 2SW 17:26 → 2NO 09-27 22:33 → T4-A 09-28 15:20
PROVIDERS: ADMIT Family Medicine; ATTEND Family Medicine
PROC: 5A1D70Z Performance of Urinary Filtration, Intermittent, Less than 6 Hours Per Day (ICD-10-PCS; principal; 2019-09-27)
DX: A41.9 Sepsis, unspecified organism (principal); J96.01 Acute respiratory failure with hypoxia; N18.6 End stage renal disease; J69.0 Pneumonitis due to inhalation of food and vomit; Z20.828 Contact with and (suspected) exposure to other viral communicable diseases; E43 Unspecified severe protein-calorie malnutrition; I50.22 Chronic systolic (congestive) heart failure; B37.49 Other urogenital candidiasis; N17.9 Acute kidney failure, unspecified; E87.1 Hypo-osmolality and hyponatremia; Z68.1 Body mass index [BMI] 19.9 or less, adult; I13.2 Hypertensive heart and chronic kidney disease with heart failure and with stage 5 chronic kidney disease, or end stage renal disease; G93.40 Encephalopathy, unspecified; E11.22 Type 2 diabetes mellitus with diabetic chronic kidney disease; E11.40 Type 2 diabetes mellitus with diabetic neuropathy, unspecified; D63.1 Anemia in chronic kidney disease; F41.9 Anxiety disorder, unspecified; R65.20 Severe sepsis without septic shock; F32.9 Major depressive disorder, single episode, unspecified; E11.51 Type 2 diabetes mellitus with diabetic peripheral angiopathy without gangrene; N25.0 Renal osteodystrophy; L89.152 Pressure ulcer of sacral region, stage 2; Z85.038 Personal history of other malignant neoplasm of large intestine; Z90.49 Acquired absence of other specified parts of digestive tract; Z99.2 Dependence on renal dialysis; Z79.899 Other long term (current) drug therapy; Z79.4 Long term (current) use of insulin; Z79.52 Long term (current) use of systemic steroids; Z87.11 Personal history of peptic ulcer disease
CPT/HCPCS: 36415; 36416; 71045; 80053; 80202; 81001; 82140; 82550; 82607; 82746; 82805; 83036; 83605; 83735; 83880; 84145; 84443; 84484; 84703; 85025; 85610; 85730; 87077; 87086; 87635; 87804; 90935; 93005; 96365; 96366; 96367; 99292; G0257; J0692; J1644; J2543; J3370; J3490; J7512; U0003

== ENCOUNTER 2019-10-04 08:38 | Inpatient (IN) | payer MEDICARE, OTHER ==
[2019-10-04] MEDS ORDERED: Vancomycin 1 GM/200 ML BAG ONE (08:47)
[2019-10-04] MEDS ORDERED: Cefepime 2 GM VIAL ONE (08:47)
[2019-10-04] MEDS ORDERED: EPINEPHrine 1 MG/10 ML Abboject SYRINGE ONE (09:22)
[2019-10-04 09:52] LABS: ALT (SGPT) 9 U/L (8-55); AST (SGOT) 18 U/L (5-34); Albumin 2.6 g/dL (3.4-4.8); Alkaline Phosphatase 81 U/L (40-110); Anion Gap 12 mmol/L (10-20); BUN (Urea Nitrogen) 18 mg/dL (9.8-20.1); Band 1 % (5-11); Bilirubin, Total 0.3 mg/dL (0.2-1.2); CK (CPK) 102 U/L (29-168); Calc. Creatinine Clearance 0 mL/min (70-130); Calcium 7.4 mg/dL (7.8-10.44); Carbon Dioxide 28 mmol/L (23-31); Chloride 97 mmol/L (98-107); Estimated GFR-MDRD 17; Globulin 3.6 g/dL (2.4-3.5); Glucose 273 mg/dL (80-115); Hemoglobin 7.7 g/dL (12.0-16.0); Lipase Less than 4 U/L (8-78); Lymphocytes 21 % (21-51); MDiff Complete? YES; Mean Corpuscular HGB CONC 32.1 g/dL (32.0-36.0); Mean Corpuscular Hemoglobin 32.4 pg (27.0-31.0); Mean Platelet Volume 8.7 fL (7.4-10.4); Monocytes 3 % (0-10); Neutrophil 74 % (42-75); Platelet Count 294 thou/uL (130-400); Platelet Morphology Comment Appears Adequate; Potassium 4.1 mmol/L (3.5-5.1); Protein, Total 6.2 g/dL (6.0-8.3); Red Blood Cell (RBC) Count 2.36 mill/uL (4.20-5.40); Sodium 133 mmol/L (136-145); Vacuoles SLIGHT; White Blood Cell (WBC) Count 19.5 thou/uL (4.8-10.8)
--- NOTE | 2019-10-04 09:53 | RAD ---
PORTABLE CHEST ONE VIEW: 10/04/2019 9:05 a.m. HISTORY: Fever. COMPARISON: 09/26/2019 FINDINGS: The heart size is prominent but stable. Bibasilar infiltrates with accompanying effusions, right grea ter than left, are again seen. No pneumothoraces are identified. POS: OFF
[2019-10-04 09:57] LABS: Bilirubin Small (Negative); Blood, Urine Large (Negative); Glucose, Urine (Dipstick) Negative (Negative); Leukocyte Large (Negative); Nitrite Negative (Negative); Protein, Urine (Dipstick) > or equal to 300 mg/dL (Neg-Trace); Urobilinogen 0.2 mg/dL (Less than 2)
[2019-10-04 10:14] LABS: Bacteria/HPF 1+ HPF (None Seen); Clarity Extra Turbid (Clear); WBC/HPF Greater Than 50 HPF (0-3)
[2019-10-04 10:15] LABS: Yeast-Budding 3+ HPF (None Seen)
--- NOTE | 2019-10-04 10:17 | PDOC.FPRHP ---
- History of Present Illness Chief Complaint: AMS History of Present Illness: 69 yo F on ESRD with IDDM presents for AMS. History no family present to get more history. She was at [facility] and was found to be altered, tachycardic, and hypoxic, so they brought her to the ED. She is unable to provide any interval history since her last hospital stay. The patient was in [place] one week prior to her last admission for a dental procedure (tooth pulled). She was planning to fly from [place] to [place] for her mother's . She choked on a hamburger mid flight, heimlich was attempted and unsuccessful, CPR was started on the plane. Defibrillator was placed, shock was not indicated. She coughed up the hamburger during CPR and rapidly improved. They made an emergency landing in [place], her vitals were normal and she refused to go to the hospital for further care. Later that night she collapsed and stopped breathing in her hotel, CPR was initiated by her . When the paramedics arrived she started awakening. She went to [facility]. Her does not know what was done while she was in the hospital, besides that pleural embolus was ruled out. She was discharged to home 2 days prior to that admission on Augmentin 250-125 once daily. During her last stay, she was initially on Vancomycin & Cefepime that were transitioned to Azithromycin. White count trended down and she was not requiring oxygen prior to discharge. Pt was swabbed for COVID last hospitalization and it was found to be negative. She was also found to have a yeast infection and was sent with 2 wks of Diflucan. At baseline she can transfer from bed to wheelchair. She has ulcers on her sacrum. also reports she cannot lay flat to sleep, she complains that she can't breathe. She has been extremely weak. states her mentation was improved in the ER after treatment, but she was not quite back to baseline. ED Course: In the ED, she was given duonebs, Vanc, Cefepime, and a 1L NS bolus. Ua showed large WBC, Neg nitrates, 1+ erendira, and 3+ yeast. CXR: Bibasilar infiltrates with effusion. LA: 1.0, WBC: 19.5, HGB: 7.7 down from 8.5. BNP was 521.9 & 606, previously 212. - Allergies/Adverse Reactions Allergies Allergy/AdvReac Type Severity Reaction Status Date / Time No Known Drug Allergies Allergy Verified 10/04/19 14:57 - Home Medications Medication Instructions Recorded Confirmed Type Megestrol Acetate [Megace] 40 mg PO DAILY tab 03/01/19 10/04/19 Rx Insulin Regular, Human [Novolin R] 7 units SC BID 07/11/19 10/04/19 History Mirtazapine [Remeron Soltab] 15 mg PO HS 07/11/19 10/04/19 History Magnesium Oxide [Mag-Oxide] 400 mg PO DAILY 09/27/19 10/04/19 History Pioglitazone HCl [Actos] 45 mg PO DAILY 09/27/19 10/04/19 History Azithromycin [Zithromax] 250 mg PO DAILY 2 Days #2 tab 09/29/19 10/04/19 Rx Fluconazole [Diflucan] 200 mg PO DAILY 13 Days #13 tab 09/29/19 10/04/19 Rx Gabapentin [Neurontin] 300 mg PO DAILY 30 Days #30 cap 09/29/19 10/04/19 Rx QUEtiapine Fumarate [SEROquel] 25 mg PO HS 30 Days #30 tab 09/29/19 10/04/19 Rx Famotidine [Pepcid] 20 mg PO DAILY 10/04/19 10/04/19 History - History PMHx: Chronic pressure ulcers on her bottom (had been improved prior to her hospitalization). Colon CA s/p hemicolectomy with primary anastamosis (around 2014), Insulin Dependent DM II, CKD stage 5, Protein-calorie malnutrition, HTN, MDD, PUD, anemia PSHx: hemicolectomy with primary anastamosis, L arm graft. FHx: multiple family members with DM2 Social: used to drinks 1-2 glasses of wine a couple of times a week but quit about 2-3 months ago. Denies current tobacco use, quit smoking "20 or so years ago." Denies illicit drug use. - Review of Systems ROS unobtainable: due to mental status - Vital signs BP: 114/54 HR: 102 RR: 14 Tmax: 99.1 Pox: 100% on @L Wt: 34.47 kg - Physical Exam -Constitutional: A&O x1 HEENT: normocephalic and atraumatic, conjunctiva clear, MMM, oropharynx clear Neck: supple, no LAD Heart: RRR, normal S1/S2, no murmurs/rubs/gallops, pulses present -Lungs: Wheezing bilaterally Abdomen: soft, non-tender, bowel sounds present Musculoskeletal: normal structure, normal tone Neurological: normal sensation Skin: no rash/lesions, good turgor Heme/Lymphatic: no unusual bruising or bleeding, no purpura, no petechia FMR H&P: Results - Labs Result Diagrams: 10/05/19 04:01 10/05/19 04:01 Lab results: WBC 19.5 thou/uL (4.8-10.8) H 10/04/19 08:56 Hgb 7.7 g/dL (12.0-16.0) L 10/04/19 08:56 Hct 23.9 % (36.0-47.0) L 10/04/19 08:56 MCV 101.0 fL (78.0-98.0) H 10/04/19 08:56 Plt Count 294 thou/uL (130-400) 10/04/19 08:56 Band Neuts % (Manual) 1 % (5-11) L 10/04/19 08:56 Sodium 133 mmol/L (136-145) L 10/04/19 08:56 Potassium 4.1 mmol/L (3.5-5.1) 10/04/19 08:56 Chloride 97 mmol/L (98-107) L 10/04/19 08:56 Carbon Dioxide 28 mmol/L (23-31) 10/04/19 08:56 BUN 18 mg/dL (9.8-20.1) 10/04/19 08:56 Creatinine 2.75 mg/dL (0.6-1.1) H 10/04/19 08:56 Glucose 273 mg/dL (80-115) H 10/04/19 08:56 Lactic Acid 1.0 mmol/L (0.5-2.2) 10/04/19 08:56 Calcium 7.4 mg/dL (7.8-10.44) L 10/04/19 08:56 Total Bilirubin 0.3 mg/dL (0.2-1.2) 10/04/19 08:56 AST 18 U/L (5-34) 10/04/19 08:56 ALT 9 U/L (8-55) 10/04/19 08:56 Alkaline Phosphatase 81 U/L (40-110) 10/04/19 08:56 Creatine Kinase 102 U/L (29-168) 10/04/19 08:56 Serum Total Protein 6.2 g/dL (6.0-8.3) 10/04/19 08:56 Albumin 2.6 g/dL (3.4-4.8) L 10/04/19 08:56 Lipase Less than 4 U/L (8-78) L 10/04/19 08:56 Urine Ketones Trace mg/dL (Negative) A 10/04/19 09:31 Urine Blood Large (Negative) A 10/04/19 09:31 Urine Nitrite Negative (Negative) 10/04/19 09:31 Ur Leukocyte Esterase Large (Negative) H 10/04/19 09:31 Urine RBC 4-6 HPF (0-3) A 10/04/19 09:31 Urine WBC Greater Than 50 HPF (0-3) A 10/04/19 09:31 Ur Squamous Epith Cells 7-10 HPF (0-3) A 10/04/19 09:31 Urine Bacteria 1+ HPF (None Seen) A 10/04/19 09:31 FMR H&P: A/P - Problem List (1) Leukocytosis Current Visit: No Status: Acute Code(s): D72.829 - ELEVATED WHITE BLOOD CELL COUNT, UNSPECIFIED (2) Sacral ulcer Current Visit: No Status: Acute Code(s): L98.429 - NON-PRESSURE CHRONIC ULCER OF BACK WITH UNSPECIFIED SEVERITY (3) Sepsis due to pneumonia Current Visit: No Status: Acute Code(s): J18.9 - PNEUMONIA, UNSPECIFIED ORGANISM; A41.9 - SEPSIS, UNSPECIFIED ORGANISM (4) DM type 2 (diabetes mellitus, type 2) Current Visit: No Status: Chronic Qualifiers: Diabetes mellitus correction insulin use: with correction use Diabetes mellitus complication status: with kidney complications Diabetes mellitus complication detail: with chronic kidney disease Chronic kidney disease stage : stage 4 (severe) Qualified Code(s): E11.22 - Type 2 diabetes mellitus with diabetic chronic kidney disease; N18.4 - Chronic kidney disease, stage 4 (severe ); Z79.4 - sumo wrestler (current) use of insulin (5) Systolic CHF Current Visit: No Status: Chronic Code(s): I50.20 - UNSPECIFIED SYSTOLIC ( CONGESTIVE) HEART FAILURE (6) ESRD (end stage renal disease) Current Visit: No Status: Chronic Code(s): N18.6 - END STAGE RENAL DISEASE (7) Protein-calorie malnutrition, severe Current Visit: No Status: Chronic Code(s): E43 - UNSPECIFIED SEVERE PROTEIN- CALORIE MALNUTRITION - Plan 69 yo M with ESRD on HD, IDDM2, HTN admitted for sepsis 2/2 PNA, COV19 r/o 1. AMS 2/ Sepsis & PNA 87% on RA initially and tachycardic * WBC: 19.5 before d/c 10.1 * s/p Vanc & Cefepime in the ED, will continue on Levaquin & Cefepime with renal dosing * Procal: ordered * CXR: Bibasilar infiltrates with effusion * Yeast infection last visit * Currently being treated with Diflucan * Blood & Urine Cx ordered * COVID swab Neg * NPO & Speech consulted 2. ESRD on TTS HD ED Consulted Pelon Brennan is her executive vice president and chief financial officer, appreciate recs * HD today 3. Volume Overload BNP: 606 & 564 today, previously 212 * Getting Dialysis 4. Hyponatremia Na 133 * Will continue to trend 5. DM2 Mild sliding scale * Continue home medication: Novolin & Pioglitazone * Will increase gabapentin for neuropathy today 6. Sacral Wound Wound care consulted 7. Anemia Hgb: 7.7, before d/c 8.5 chronic anemia 2/2 to CKD * B12 & Folate wnl * Iron labs evaluated from July show Iron Deficieny with Tsat: 13% 8. Physical Deconditioning PT/OT consulted for post-acute screen 9. Protein/calorie Malnutrition Assembly Manager consulted, appreciate recs 10. Anxiety Home meds: Mirtazipine * PRN ativan & hydroxyzine with Seroquel QHS as patient has been incredibly anxious since admission. Code Status: Full DVT ppx: Heparin Diet: NPO IVF: SL PCP: INDIRA Araiza Discharge planning: Admit to tele inpt for PNA. Will start Abx and see how she progresses, LOS > 48H. FMR H&P: Upper Level - Plan Date/Time: 10/04/19 1015 IDahlia, have evaluated this patient and agree with findings/plan as outlined by bakery pastry internship resident. Pertinent changes/additions are listed here. 69 yo F with PMH ESRD presents from rehab for AMS and SOB. History difficult to obtain from patient. Was discharged 09/28 to rehab after being treated for CAP with vanc and cefepime which were transitioned to azithro. She was discharged with 2 days remaining of azithromycin and to completed 2 week course of treatment for kristina UTI. Patient reports SOB, difficulty breathing. Denies chest pain, fever. CXR: congestion, bilateral infiltrates PE: Gen: sleepy, NAD, responds to questions Heart: RRR, no edema Lungs: course breath sounds diffusely anteriorly Neuro: oriented x3 AMS 2/2 sepsis 2/2 PNA -presented with elevated WBC, tachycardia. Bands present, procalcitonin ordered. Cultures pending. No fever. -CXR with b/l pleural effusion and infiltrate r>L - Patient was recently discharged for similar presentation, had completed antibiotic course. COVID neg at that time. - s/p vanc and cefepime in ed. Will continue Levaquin and cefepime. - Not hypotensive, going to dialysis today Acute hypoxic respiratory failure - 87% on RA, placed on supplemental O2 in ED, Wean as tolerated. - Likely multifactorial, has infection and will treat for pneumonia but also likely volume overloaded with BNP 600 compared to ~200 one week ago. Patient getting dialysis today. -Duonebs jayesh and prn Elevated d-dimer - 3.89 and VQ scan in ED ordered, pending result ESRD - Vasudev consulted and getting dialysis today. Normally //Sun schedule. - Renally dose medications Kristina Krusei UTI - Continue treatment to complete 14 day course (started at previous hospitalization) - Urine cx was repeated in ED Chronic hyponatremia Chronic macroyctic anemia-with iron deficiency on prior studies. Has slightly downtrended to 7.7, will continue to trend and transfuse if needed. No known hx CAD. Hypoalbuminemia Other chronic problems per bakery pastry internship note. Code Status: Full DVT ppx: Heparin Diet: NPO, will add diet when more alert IVF: SL PCP: INDIRA Araiza Attending: Dr. Augustin Dispo: admit to telemetry inpatient. Expected LOS >48hrs Addendum - Attending - Attending Attestation Date/Time: 10/04/19 [id number] I personally evaluated the patient and discussed the management with [Rere] I agree with the History, Examination, Assessment and Plan documented above with any addition or exceptions noted below.
--- NOTE | 2019-10-04 11:29 | CON ---
DATE OF CONSULTATION: 10/04/2019 CONSULTING PHYSICIAN: Dr. Alex from ER. REASON FOR CONSULTATION: End-stage renal disease evaluation. REASON FOR ADMISSION: Fever, shortness of breath, and altered mentation. HISTORY OF PRESENT ILLNESS: This is a 69-year-old female with past medical history of end-stage renal disease, hypertension, and colon cancer, came to the hospital with above complaints. She was recently in the hospital and was sent to rehab for deconditioning and found to have mild-grade fever, shortness of breath, hypoxia, and altered mentation this morning and was sent back to the ER. She was evaluated in the ER. She is due for dialysis today. She gets dialysis Sunday, , Sunday, and plan is to have dialysis today. PAST MEDICAL HISTORY: Positive for end-stage renal disease, hypertension, type 2 diabetes, colon cancer, and anemia. PAST SURGICAL HISTORY: Hemicolectomy and dialysis shunt placement. HOME MEDICATIONS: Reviewed. ALLERGIES: NO KNOWN DRUG ALLERGIES. SOCIAL HISTORY: History of smoking and alcohol in the past. No illicit drug abuse. FAMILY HISTORY: Positive for diabetes. REVIEW OF SYSTEMS: Could not be obtained due to altered mentation. PHYSICAL EXAMINATION: GENERAL: This is a thin-built female, mildly confused. VITAL SIGNS: Temperature low-grade fever, pulse 70, respiratory rate 18, blood pressure 123/70. HEENT: Atraumatic and normocephalic. Oral mucosa is moist. NECK: Supple. CV: S1 and S2. Rate and rhythm regular. RESPIRATORY: Clear. GI: Abdomen is soft. MUSCULOSKELETAL: No tenderness. No edema. DERMATOLOGIC: No skin rash NEUROLOGIC: Confused. LABORATORY DATA: Hemoglobin is 7.7. Potassium is 4.1, BUN is 18, creatinine is 2.7. ASSESSMENT AND PLAN: 1. End-stage renal disease. Plan is to have dialysis. 2. Fluid overload. Remove fluid. 3. History of hypertension. 4. Anemia. 5. Leukocytosis. 6. Hyponatremia. 7. Hypoalbuminemia. Plan is to continue on dialysis as tolerated. Job ID: [id number]
[2019-10-04] MEDS ORDERED: Calcium Carbonate 500 MG ChewTAB PO PRN (11:36)
[2019-10-04] MEDS ORDERED: Senokot S 8.6-50 MG TAB PO PRN (11:36)
[2019-10-04] MEDS ORDERED: Ondansetron PF 4 MG/2 ML Vial IVP PRN (11:36)
[2019-10-04] MEDS ORDERED: Dextrose 5% in Water 1,000 ML IV PRN (11:36)
[2019-10-04] MEDS ORDERED: HumaLOG 300 UNITS/3 ML VIAL SC PRN (11:36)
[2019-10-04] MEDS ORDERED: Dextrose 50% Abboject 50 ML SYRINGE SLOW IVP PRN (11:36)
[2019-10-04] MEDS ORDERED: Ondansetron ODT 4 MG TAB PO PRN (11:36)
[2019-10-04] MEDS: Heparin 5,000 UNITS/ML VIAL SC SCH ×2 (14:46→20:57)
[2019-10-04] MEDS: Acetaminophen 325 MG TAB PO PRN ×2 (17:28→20:57)
[2019-10-04] MEDS ORDERED: Gabapentin 300 MG CAP PO SCH (20:30)
[2019-10-04] MEDS: Mirtazapine 15 MG Soltab PO SCH (20:57)
[2019-10-05] MEDS: Insulin Regular 300 UNITS/3 ML VIAL SC SCH ×3 (01:06→21:02)
[2019-10-05] MEDS: Acetaminophen 325 MG TAB PO PRN ×3 (02:35→14:51)
[2019-10-05 04:09] LABS: #Eosinphils 0.1 thou/uL (0.0-0.7); #Lymphocytes 1.3 thou/uL (1.20-3.40); #Monocytes 0.9 thou/uL (0.11-0.59); #Neutrophils 15.5 thou/uL (1.40-6.50); %Basophils 0.2 % (0.0-1.0); %Eosinophils 0.8 % (0.0-10.0); %Lymphocytes 7.3 % (21.0-51.0); %Neutrophils 86.7 % (42.0-75.0); Hemoglobin 7.8 g/dL (12.0-16.0); Mean Corpuscular HGB CONC 31.3 g/dL (32.0-36.0); Mean Platelet Volume 8.3 fL (7.4-10.4); Platelet Count 259 thou/uL (130-400); RBC Distribution Width 15.1 % (11.5-14.5); Red Blood Cell (RBC) Count 2.45 mill/uL (4.20-5.40); White Blood Cell (WBC) Count 17.9 thou/uL (4.8-10.8)
[2019-10-05 04:25] LABS: ALT (SGPT) 8 U/L (8-55); AST (SGOT) 17 U/L (5-34); Albumin 2.5 g/dL (3.4-4.8); Alkaline Phosphatase 78 U/L (40-110); Anion Gap 14 mmol/L (10-20); BUN (Urea Nitrogen) 12 mg/dL (9.8-20.1); Bilirubin, Total 0.2 mg/dL (0.2-1.2); Calc. Creatinine Clearance 0 mL/min (70-130); Calcium 7.6 mg/dL (7.8-10.44); Carbon Dioxide 24 mmol/L (23-31); Chloride 100 mmol/L (98-107); Estimated GFR-MDRD 26; Globulin 3.4 g/dL (2.4-3.5); Glucose 306 mg/dL (80-115); Potassium 3.6 mmol/L (3.5-5.1); Protein, Total 5.9 g/dL (6.0-8.3); Sodium 134 mmol/L (136-145)
[2019-10-05] MEDS: HumaLOG 300 UNITS/3 ML VIAL SC PRN ×2 (05:57→16:58)
--- NOTE | 2019-10-05 06:01 | PDOC.FM ---
- Subjective Subjective: Pt's main concern this morning is her chronic right knee pain. Denies injury. Imaged during last admission with no acute findings. - Objective Vital Signs & Weight: Vital Signs (12 hours) Temp Pulse Resp BP Pulse Ox 10/05/19 04:00 98.1 F 103 H 18 129/60 97 10/04/19 19:53 98.2 F 105 H 18 131/59 L 97 10/04/19 19:50 97 Result Diagrams: 10/05/19 04:01 10/05/19 04:01 Phys Exam - Physical Examination Constitutional: NAD HEENT: moist MMs Diminished breath sounds with crackles bilaterally in bases Cardiovascular: RRR Gastrointestinal: soft, non-tender Musculoskeletal: no edema, pulses present Neurological: moves all 4 limbs Deviation from normal: disoriented, repetative speech, at baseline per previous rounder Dx/Plan - Plan Plan: AMS 2/2 Sepsis & PNA w/ acute hypoxic respiratory failure - remains tachycardic w/ 3L O2 requirement - WBC downtrended to 17.9, left shift more pronounced today - Continue Levaquin & Cefepime with renal dosing - on admission CXR: Bibasilar infiltrates with effusion - Blood & Urine Cx pending - NPO & Speech consulted - Procal stable at 1.2 ESRD on TTS HD - ED Consulted Pelon Brennan is her car dumper, appreciate recs - Received HD yesterday with fluid removal for her volume overload Hyponatremia - Na 133 > 134 - Will continue to trend DM2 - Poor control currently so will switch to moderate sliding scale - Continue home medication: Novolin & Pioglitazone Sacral Wound - Wound care consulted Anemia - Hgb: 7.7, before d/c 8.5 - chronic anemia 2/2 to CKD and iron deficiency Physical Deconditioning - PT/OT consulted for post-acute screen Protein/calorie Malnutrition - Abrading Machine Tender consulted, appreciate recs Anxiety - Home meds: Mirtazipine - PRN ativan & hydroxyzine with Seroquel QHS as patient has been incredibly anxious since admission. Code Status: Full DVT ppx: Heparin Diet: NPO IVF: SL PCP: INDIRA Araiza Discharge planning: Tele inpt for PNA, AMS. Receiving IV abx. LOS > 48H. Addendum - Attending - Attending Attestation Date/Time: 10/05/19 3775 I personally evaluated the patient and discussed the management with [Kd ] I agree with the History, Examination, Assessment and Plan documented above with any addition or exceptions noted below.
[2019-10-05] MEDS: Fluconazole 100 MG TAB PO SCH (09:05)
[2019-10-05] MEDS: Cefepime 1 GM in Sodium Chloride 0.9% 100 ML IVPB SCH (09:06)
[2019-10-05] MEDS: Famotidine 20 MG TAB PO SCH (09:06)
[2019-10-05] MEDS: Pioglitazone HCl 45 MG TAB PO SCH (09:06)
[2019-10-05] MEDS: Gabapentin 300 MG CAP PO SCH (09:06)
[2019-10-05] MEDS: Magnesium Oxide 400 MG TAB PO SCH (09:06)
[2019-10-05] MEDS: Heparin 5,000 UNITS/ML VIAL SC SCH ×3 (09:07→21:02)
[2019-10-05] MEDS: Megestrol Acetate 40 MG TAB PO SCH (09:17)
--- NOTE | 2019-10-05 13:23 | PRG ---
DATE OF SERVICE: 10/05/2019 SUBJECTIVE: Patient was seen and examined at bedside and overnight events noted. Patient denies any shortness of breath or chest pain or palpitation. No history of nausea or vomiting or diarrhea or fever or chills or cramps. OBJECTIVE: GENERAL: This is a well-built female, in no apparent distress. VITAL SIGNS: Temperature 99.8. Heart rate 92. Respiratory rate 18. Blood pressure 130/63. HEENT: Atraumatic, normocephalic. Oral mucosa is moist NECK: Supple. CARDIOVASCULAR: S1, S2 heard. Rate and rhythm regular. RESPIRATORY: Clear to auscultation. GASTROINTESTINAL: Abdomen is soft. MUSCULOSKELETAL: No tenderness. No edema. DERMATOLOGIC: No skin rash. NEUROLOGIC: Alert and awake and oriented X3. No focal neurologic deficits. Moving all the extremities. PSYCHIATRIC: Mood and affect normal. LABORATORY DATA: Potassium 3.6, BUN is 12, creatinine is 1.9. ASSESSMENT AND PLAN: 1. End-stage renal disease. Current dialysis. 2. H/o HTN 3. Anemia. 4. Hyponatremia. 5. Hypokalemia. Continue dialysis as tolerated. Job ID: [id number] [facility]
[2019-10-05] MEDS ORDERED: Diclofenac 1% 100 GM GEL TP PRN (16:44)
[2019-10-05] MEDS ORDERED: Diclofenac 1% 100 GM GEL TP SCH (17:00)
[2019-10-05] MEDS: Acetaminophen/Codeine 30-300mg Tablet PO PRN ×2 (18:18→23:59)
[2019-10-05] MEDS: Mirtazapine 15 MG Soltab PO SCH (21:02)
--- NOTE | 2019-10-06 07:51 | PDOC.FM ---
- Subjective Subjective: Patient asleep this morning, is at bedside. He states her mental status was much improved yesterday afternoon. She is due for dialysis tomorrow. She remains on 3L BNC. - Objective Vital Signs & Weight: Vital Signs (12 hours) Temp Pulse Resp BP Pulse Ox 10/06/19 07:36 97.2 F L 85 12 106/58 L 95 10/06/19 03:20 97.4 F L 78 16 93/54 L 92 L 10/05/19 20:00 97.8 F 84 16 92/52 L 95 Weight Weight 48.79 kg I&O: 10/05/19 10/06/19 10/07/19 06:59 06:59 06:59 Intake Total 680 Balance 680 Result Diagrams: 10/06/19 08:05 10/06/19 08:05 Phys Exam - Physical Examination Constitutional: NAD sleeping, pt cachectic Respiratory: no wheezing inspiratory crackles bilat, decreased breath sounds on right lower base Cardiovascular: RRR Gastrointestinal: soft, non-tender, no distention Musculoskeletal: no edema, pulses present Skin: normal turgor, cap refill <2 seconds Dx/Plan (1) Acute and chronic respiratory failure with hypoxia Code(s): J96.21 - ACUTE AND CHRONIC RESPIRATORY FAILURE WITH HYPOXIA Status: Acute (2) Hyponatremia Code(s): E87.1 - HYPO-OSMOLALITY AND HYPONATREMIA Status: Chronic (3) HTN (hypertension) Code(s): I10 - ESSENTIAL (PRIMARY) HYPERTENSION Status: Chronic (4) Sacral ulcer Code(s): L98.429 - NON-PRESSURE CHRONIC ULCER OF BACK WITH UNSPECIFIED SEVERITY Status: Chronic (5) Sepsis due to pneumonia Code(s): J18.9 - PNEUMONIA, UNSPECIFIED ORGANISM; A41.9 - SEPSIS, UNSPECIFIED ORGANISM Status: Acute (6) DM type 2 (diabetes mellitus, type 2) Status: Chronic Qualifiers: Diabetes mellitus production superintendent insulin use: with production superintendent use Diabetes mellitus complication status: with kidney complications Diabetes mellitus complication detail: with chronic kidney disease Chronic kidney disease stage : stage 4 (severe) Qualified Code(s): E11.22 - Type 2 diabetes mellitus with diabetic chronic kidney disease; N18.4 - Chronic kidney disease, stage 4 (severe ); Z79.4 - assisted (current) use of insulin (7) ESRD (end stage renal disease) Code(s): N18.6 - END STAGE RENAL DISEASE Status: Chronic (8) Macrocytic anemia Code(s): D53.9 - NUTRITIONAL ANEMIA, UNSPECIFIED Status: Chronic (9) Protein-calorie malnutrition, severe Code(s): E43 - UNSPECIFIED SEVERE PROTEIN-CALORIE MALNUTRITION Status: Chronic - Plan Plan: Acute metabolic encephalopathy 2/2 Sepsis from PNA Acute hypoxic respiratory failure - tachycardia improved, on 3L BNC O2 requirement - WBC downtrended to 17.9, today CBC pending - Continue Levaquin & Cefepime with renal dosing - on admission CXR: Bibasilar infiltrates with effusion - Blood cx pending, Urine Cx showing yeast (patient is on diflucan) - Speech consulted - Procal 1.2 ESRD on TTS HD - ED Consulted Pelon Brennan is her director quality systems, appreciate recs - Received HD sunday with fluid removal for her volume overload Hyponatremia - Na 133 > 134 - Will continue to trend, today Na pending DM2 - Low BS this AM, mild sliding scale - Continue home medication: Novolin 7 u BID & Pioglitazone Sacral Wound - Wound care consulted Anemia of Chronic disease, stable - Hgb: 7.7, before d/c 8.5 - chronic anemia 2/2 to CKD and iron deficiency, continue to monitor Physical Deconditioning - PT/OT consulted, post-acute screen ordered, CM consulted for placement - Pt came from [facility] rehab Protein/calorie Malnutrition - Portable Machine Sander consulted, appreciate recs Anxiety - Continue home Mirtazipine and Seroquel QHS Code Status: Full DVT ppx: Heparin Diet: HH, fluid restricted IVF: SL PCP: INDIRA Araiza Discharge planning: Tele inpt for PNA. Receiving IV abx. LOS > 48H. CM consulted for placement. Post acute screen ordered. PT/OT/Speech consulted. Addendum - Attending - Attending Attestation Date/Time: 10/06/19 1300 I personally evaluated the patient and discussed the management with Dr. Donald. I agree with the History, Examination, Assessment and Plan documented above with any addition or exceptions noted below. Continue IV antibiotics and antifungals. Attempt to wean oxygen.
[2019-10-06 08:16] LABS: #Eosinphils 0.4 thou/uL (0.0-0.7); #Lymphocytes 1.5 thou/uL (1.20-3.40); #Neutrophils 9.7 thou/uL (1.40-6.50); %Basophils 0.4 % (0.0-1.0); %Eosinophils 3.5 % (0.0-10.0); %Lymphocytes 11.7 % (21.0-51.0); %Monocytes 7.8 % (0.0-10.0); %Neutrophils 76.6 % (42.0-75.0); Hemoglobin 7.9 g/dL (12.0-16.0); Mean Corpuscular Hemoglobin 32.2 pg (27.0-31.0); Mean Platelet Volume 8.6 fL (7.4-10.4); Platelet Count 290 thou/uL (130-400); RBC Distribution Width 15.2 % (11.5-14.5); Red Blood Cell (RBC) Count 2.44 mill/uL (4.20-5.40); White Blood Cell (WBC) Count 12.6 thou/uL (4.8-10.8)
[2019-10-06 08:46] LABS: Anion Gap 14 mmol/L (10-20); BUN (Urea Nitrogen) 21 mg/dL (9.8-20.1); Calc. Creatinine Clearance 14 mL/min (70-130); Calcium 7.7 mg/dL (7.8-10.44); Carbon Dioxide 24 mmol/L (23-31); Chloride 101 mmol/L (98-107); Estimated GFR-MDRD 16; Glucose 114 mg/dL (80-115); Potassium 4.2 mmol/L (3.5-5.1); Sodium 135 mmol/L (136-145)
[2019-10-06] MEDS: Cefepime 1 GM in Sodium Chloride 0.9% 100 ML IVPB SCH (09:12)
[2019-10-06] MEDS: Famotidine 20 MG TAB PO SCH (09:12)
[2019-10-06] MEDS: Magnesium Oxide 400 MG TAB PO SCH (09:13)
[2019-10-06] MEDS: Heparin 5,000 UNITS/ML VIAL SC SCH ×3 (09:13→21:40)
[2019-10-06] MEDS: Fluconazole 100 MG TAB PO SCH (09:13)
[2019-10-06] MEDS: Gabapentin 300 MG CAP PO SCH (09:13)
[2019-10-06] MEDS: Pioglitazone HCl 45 MG TAB PO SCH (09:13)
[2019-10-06] MEDS: Insulin Regular 300 UNITS/3 ML VIAL SC SCH ×2 (09:14→21:38)
[2019-10-06] MEDS: Megestrol Acetate 40 MG TAB PO SCH (09:20)
--- NOTE | 2019-10-06 12:23 | PRG ---
DATE OF SERVICE: 10/06/2019 SUBJECTIVE: A 69-year-old female, being seen for end-stage renal disease. The patient denied nausea, vomiting, or chest pain. OBJECTIVE: General: The patient is awake and alert. Vital Signs: Afebrile, pulse 86, breathing 16, blood pressure 106/58. HEENT: Head normocephalic and atraumatic. Eyes intact, no ulcers. Nose intact, no ulcers. Ears intact, no ulcers. Neck: Supple. No JVD. Chest: Symmetrical and clear. Cardiovascular: Shows S1 and S2, no rub, no murmur. Gastrointestinal: Abdomen is soft, bowel sounds positive. Extremities: Show no edema or ulcers. Skin: Shows no rash or petechiae. Musculoskeletal: Shows no joint swelling or stiffness. Genitourinary: Shows no Mcnamara or CVA tenderness. Neurologic: Motor intact. Cranial nerves intact. LABORATORY DATA: Reviewed. ASSESSMENT: 1. Stage 6 chronic kidney disease, stable. 2. . 3. Anemia, stable. 4. Medications based on GFR appropriate. Job ID: [id number]
[2019-10-06 18:33] LABS: #Basophils 0.1 thou/uL (0.0-0.2); #Eosinphils 0.3 thou/uL (0.0-0.7); #Lymphocytes 4.7 thou/uL (1.20-3.40); #Monocytes 1.1 thou/uL (0.11-0.59); #Neutrophils 8.7 thou/uL (1.40-6.50); %Basophils 0.6 % (0.0-1.0); %Lymphocytes 31.7 % (21.0-51.0); %Monocytes 7.5 % (0.0-10.0); %Neutrophils 58.3 % (42.0-75.0); Hemoglobin 8.2 g/dL (12.0-16.0); Mean Corpuscular HGB CONC 31.7 g/dL (32.0-36.0); Mean Platelet Volume 8.5 fL (7.4-10.4); Platelet Count 305 thou/uL (130-400); RBC Distribution Width 15.1 % (11.5-14.5); Red Blood Cell (RBC) Count 2.48 mill/uL (4.20-5.40); White Blood Cell (WBC) Count 14.9 thou/uL (4.8-10.8)
[2019-10-06 18:41] LABS: Actual Bicarbonate (HCO3a) 25.7 mEq/L (22-28); Base Excess (BEa) -0.4 mEq/L (-2.0 to +3.0); CO2 Tension 49.9 mmHg (35.0-45.0); Calcium, Ionized 1.12 mmol/L (1.12-1.30); Carboxyhemoglobin (COHb) 0.8 gm% (0.0-3.0); Hemoglobin (Hb) 8.1 g/dL (12.0-16.0); O2 Tension (PaO2), arterial 63.5 mmHg (> 80.0); Potassium - ABG Lab 4.16 mmol/L (3.70-5.30); pH, Arterial 7.33 (7.35-7.45)
[2019-10-06 18:46] LABS: ALV-art Gradient 173.585 (0-20); Puncture Site R BRACHIAL
--- NOTE | 2019-10-06 18:50 | PDOC.BPN ---
<Claus Donald - Last Filed: 10/06/19 18:46> - Brief Progress Note Code green called, residents responded immediately, while en route code blue upon arrival patient was unresponsive reported she was talking to him and then all the sudden quit breathing RT was providing AMBU bag on arrival, pulses in intact, BP 90/50 Patient then responded to sternal rub Initially groans, then was able to state name Patient was found to have ball of food in mouth which was removed with finger sweep and then suction Patient sat up, aggravated, shouting "you did this to me" "what do you went" CXR showed consolidation RUL EKG no acute changes, patient moving all extremities, no gross neuro deficits, sats 100% on 5L at time of transfer Transferred to [facility] overnight for monitoring, NPO, re-consult ST, added flaggyl for aspiration coverage, ABG, CBC, CMP <Viridiana Otoole - Last Filed: 10/06/19 23:21> Addendum - Attending - Attending Attestation Date/Time: 10/06/19 3360 I personally evaluated the patient and discussed the management with Dr. Camacho and Jason Donald Patient awake and alert on my arrival. No distress noted currently; oriented and follows commands. Agree with plan to monitor overnight in IMCU. Possible aspiration. Consider other etiologies - seizure, cardiac (though no change noted on telemetry).
[2019-10-06 18:56] LABS: ALT (SGPT) 8 U/L (8-55); AST (SGOT) 16 U/L (5-34); Albumin 2.7 g/dL (3.4-4.8); Alkaline Phosphatase 77 U/L (40-110); Anion Gap 13 mmol/L (10-20); BUN (Urea Nitrogen) 22 mg/dL (9.8-20.1); Bilirubin, Total 0.2 mg/dL (0.2-1.2); Calc. Creatinine Clearance 13 mL/min (70-130); Carbon Dioxide 24 mmol/L (23-31); Chloride 100 mmol/L (98-107); Estimated GFR-MDRD 14; Globulin 3.8 g/dL (2.4-3.5); Glucose 130 mg/dL (80-115); Potassium 4.3 mmol/L (3.5-5.1); Protein, Total 6.5 g/dL (6.0-8.3); Sodium 133 mmol/L (136-145)
--- NOTE | 2019-10-06 19:06 | RAD ---
CHEST ONE VIEW: History: Code Blue Comparison: 09-07-2019 FINDINGS: Large bilateral effusions. Defibrillator pads project over the left hemithorax. Airspace opacities throughout both lower lobes and right upper lung. IMPRESSION: 1. Enlarging bilateral pleural effusions. 2. Multifocal airspace opacities may reflect ARDS, edema, or multifocal infection. POS: HOME
[2019-10-06] MEDS: Mirtazapine 15 MG Soltab PO SCH (21:38)
[2019-10-06] MEDS: metroNIDAZOLE 500 MG in Premix Bag 1 BAG IVPB SCH (21:40)
[2019-10-07 03:35] LABS: #Eosinphils 0.2 thou/uL (0.0-0.7); #Lymphocytes 2.1 thou/uL (1.20-3.40); #Monocytes 0.8 thou/uL (0.11-0.59); #Neutrophils 7.2 thou/uL (1.40-6.50); %Basophils 0.2 % (0.0-1.0); %Eosinophils 1.7 % (0.0-10.0); %Lymphocytes 20.5 % (21.0-51.0); %Monocytes 7.8 % (0.0-10.0); %Neutrophils 69.8 % (42.0-75.0); Hemoglobin 8.2 g/dL (12.0-16.0); Mean Corpuscular HGB CONC 32.4 g/dL (32.0-36.0); Mean Corpuscular Hemoglobin 33.5 pg (27.0-31.0); Mean Platelet Volume 9.1 fL (7.4-10.4); Platelet Count 312 thou/uL (130-400); RBC Distribution Width 15.2 % (11.5-14.5); Red Blood Cell (RBC) Count 2.44 mill/uL (4.20-5.40); White Blood Cell (WBC) Count 10.3 thou/uL (4.8-10.8)
[2019-10-07 03:53] LABS: Anion Gap 17 mmol/L (10-20); BUN (Urea Nitrogen) 26 mg/dL (9.8-20.1); Calc. Creatinine Clearance 12 mL/min (70-130); Calcium 8.1 mg/dL (7.8-10.44); Carbon Dioxide 23 mmol/L (23-31); Chloride 99 mmol/L (98-107); Estimated GFR-MDRD 13; Glucose 143 mg/dL (80-115); Potassium 4.5 mmol/L (3.5-5.1); Sodium 134 mmol/L (136-145)
[2019-10-07] MEDS ORDERED: Morphine 2 MG/ML SYRINGE SLOW IVP PRN (04:05)
[2019-10-07] MEDS ORDERED: Haloperidol Lactate 5 MG/ML VIAL SLOW IVP SCH (05:15)
[2019-10-07] MEDS: metroNIDAZOLE 500 MG in Premix Bag 1 BAG IVPB SCH ×3 (05:24→17:54)
--- NOTE | 2019-10-07 06:59 | PDOC.FM ---
- Subjective Subjective: Patient had an episode of aspiration overnight, code sally was called. Patient required ambu bag and was able to cough up her food with firm back thrusts and finger sweep. She was started on flagyl and moved to the IMCU for closer monitoring and made NPO. While there, she has had some waxing/waning mentation ( delirium) and tried to remove IV's overnight. She is being dialyzed this morning. Patient did not respond verbally to questions this morning, she was alert but not oriented. - Objective Vital Signs & Weight: Vital Signs (12 hours) Temp Pulse Ox 10/07/19 04:24 98.3 F 10/07/19 01:46 98 10/07/19 00:23 98.1 F 10/06/19 22:05 99 10/06/19 20:00 98 10/06/19 19:00 100 Weight Admit Weight 44.135 kg Weight 46.856 kg Most Recent Monitor Data Heart Rate from ECG 101 NIBP 108/53 NIBP BP-Mean 71 Respiration from ECG 16 SpO2 93 I&O: 10/05/19 10/06/19 10/07/19 06:59 06:59 06:59 Intake Total 680 200 Balance 680 200 Result Diagrams: 10/07/19 03:10 10/07/19 03:10 Phys Exam - Physical Examination patient appears agitated, rocking side to side in the bed gripping the rail HEENT: moist MMs Respiratory: no wheezing, clear to auscultation bilateral diminished breath sounds at bases bilaterally Cardiovascular: RRR 1/6 systolic murmur Gastrointestinal: soft, non-tender, no distention Musculoskeletal: no edema, pulses present Neurological: moves all 4 limbs Deviation from normal: AO x0 this AM Skin: cap refill <2 seconds Dx/Plan (1) Acute and chronic respiratory failure with hypoxia Code(s): J96.21 - ACUTE AND CHRONIC RESPIRATORY FAILURE WITH HYPOXIA Status: Acute (2) Hyponatremia Code(s): E87.1 - HYPO-OSMOLALITY AND HYPONATREMIA Status: Chronic (3) HTN (hypertension) Code(s): I10 - ESSENTIAL (PRIMARY) HYPERTENSION Status: Chronic (4) Sacral ulcer Code(s): L98.429 - NON-PRESSURE CHRONIC ULCER OF BACK WITH UNSPECIFIED SEVERITY Status: Chronic (5) Sepsis due to pneumonia Code(s): J18.9 - PNEUMONIA, UNSPECIFIED ORGANISM; A41.9 - SEPSIS, UNSPECIFIED ORGANISM Status: Acute (6) DM type 2 (diabetes mellitus, type 2) Status: Chronic Qualifiers: Diabetes mellitus extermination supervisor insulin use: with extermination supervisor use Diabetes mellitus complication status: with kidney complications Diabetes mellitus complication detail: with chronic kidney disease Chronic kidney disease stage : stage 4 (severe) Qualified Code(s): E11.22 - Type 2 diabetes mellitus with diabetic chronic kidney disease; N18.4 - Chronic kidney disease, stage 4 (severe ); Z79.4 - terminal gauger (current) use of insulin (7) ESRD (end stage renal disease) Code(s): N18.6 - END STAGE RENAL DISEASE Status: Chronic (8) Macrocytic anemia Code(s): D53.9 - NUTRITIONAL ANEMIA, UNSPECIFIED Status: Chronic (9) Protein-calorie malnutrition, severe Code(s): E43 - UNSPECIFIED SEVERE PROTEIN-CALORIE MALNUTRITION Status: Chronic - Plan Plan: Acute metabolic encephalopathy 2/2 Sepsis from PNA, likely aspiration pneumonia Acute hypoxic respiratory failure - Aspiration event overnight with code blue called, pt stopped breathing and O2 to 60s. Resolved with back thrusts and finger sweep. Patient made NPO and moved to IMCU for closer monitoring - WBC count is improving, pt now on 1 L BNC - Will DC cefepime; continue IV levaquin and flagyl (for aspiration coverage). Pharmacy is assisting with doseage as ESRD pt on dialysis. - Initial CXR: Bibasilar infiltrates with effusion - Repeat CXR: bilat pleural effusions increased, multifocal airspace disease suggestive of ARDS, edema, or multifocal infection - Blood cx NG @ 48 hrs, Urine Cx showing yeast (pt on fluconazole) - Speech consulted again, plan for barium swallow study today ESRD on TTS HD - ED Consulted Pelon Brennan is her information lead, appreciate recs - Received HD sunday with fluid removal for her volume overload - Being dialyzed this AM Yeast UTI -Continue diflucan, made IV today as NPO, pharmacy to dose Hyponatremia - Na 133 > 134 - Will continue to trend DM2 - mild sliding scale - Continue home medication: Novolin 7 u BID & Pioglitazone - Accuchecks q4h Sacral Wound - Wound care consulted Anemia of Chronic disease, stable - Hgb before d/c 8.5 - chronic anemia 2/2 to CKD and iron deficiency, continue to monitor Physical Deconditioning - PT/OT consulted, post-acute screen ordered, CM consulted for placement Protein/calorie Malnutrition - Frame Coverer consulted, appreciate recs Anxiety - Home Mirtazipine and Seroquel QHS have been held due to NPO status Code Status: Full DVT ppx: Heparin Diet: NPO for barium swallow IVF: SL PCP: INDIRA Araiza Discharge planning: Moved to [facility] for closer monitoring. CM consulted for placement. Post acute screen ordered. PT/OT/Speech consulted. NPO for barium swallow study as aspirated overnight. Addendum - Attending - Attending Attestation Date/Time: 10/07/19 0703 I personally evaluated the patient and discussed the management with Dr. Donald. I agree with the History, Examination, Assessment and Plan documented above with any addition or exceptions noted below. modified barium swallow and neurology consultation for recurrent aspiration vs seizure like episodes. Holding all potential sedating medications.
[2019-10-07] MEDS: Famotidine 20 MG TAB PO SCH (08:42)
[2019-10-07] MEDS ORDERED: ALPRAZolam 0.25 MG TAB PO SCH (08:45)
[2019-10-07] MEDS: Gabapentin 300 MG CAP PO SCH (08:46)
[2019-10-07] MEDS: Heparin 5,000 UNITS/ML VIAL SC SCH ×5 (08:46→21:12)
[2019-10-07] MEDS: Megestrol Acetate 40 MG TAB PO SCH (08:47)
[2019-10-07] MEDS: Magnesium Oxide 400 MG TAB PO SCH (08:47)
[2019-10-07] MEDS: Pioglitazone HCl 45 MG TAB PO SCH (08:47)
--- NOTE | 2019-10-07 11:16 | PRG ---
DATE OF SERVICE: 10/07/2019 SUBJECTIVE: A 69-year-old female, being seen for end-stage renal disease. The patient denies any nausea, vomiting, or chest pain. OBJECTIVE: General: The patient is awake and alert. Vital Signs: Afebrile, pulse , breathing at 16, blood pressure 114/55. HEENT: Head normocephalic and atraumatic. Eyes intact, no ulcers. Nose intact, no ulcers. Ears intact, no ulcers. Neck: Supple. No JVD. Chest: Symmetrical and clear. Cardiovascular: Shows S1 and S2, no rub, no murmur. Gastrointestinal: Abdomen is soft, bowel sounds positive. Extremities: Show no edema or ulcers. Skin: Shows no rash or petechiae. Musculoskeletal: Shows no joint swelling or stiffness. Genitourinary: Shows no Mcnamara or CVA tenderness. Neurologic: Motor intact. Cranial nerves intact. LABORATORY DATA: Hemoglobin 8.2. Creatinine 3.4. ASSESSMENT: 1. Stage 6 chronic kidney disease, plan dialysis per schedule. 2. Hypertension, stable. 3. Anemia, stable. 4. Medication based on GFR appropriate. Job ID: [id number]
[2019-10-07] MEDS: Insulin Regular 300 UNITS/3 ML VIAL SC SCH ×2 (11:27→21:12)
--- NOTE | 2019-10-07 12:37 | CON ---
DATE OF CONSULTATION: 10/07/2019 REASON FOR CONSULTATION: Altered mental status. HISTORY OF PRESENT ILLNESS: Ms. Vilma Mann is a 69-year-old female with end-stage renal disease, insulin-dependent diabetes mellitus, on hemodialysis, presented with altered mental status. She was admitted on 10/04/2019. She is a resident of [facility] and was found to be extremely confused and difficulty breathing, so they decided to bring her to the emergency room for further evaluation. The patient was in [place] a week before her admission because of a dental procedure and was flying to go to [place] for her mother's , but she choked on a hamburger in mid flight, and Heimlich was attempted, and CPR was started on the plane. Defibrillator was placed, and then, her condition improved. Emergency landing was made in [place] because of her condition, and then, she refused to go to the hospital for further care. The same night she collapsed, and the initiated CPR and took her to the [facility] in [facility], and she was discharged two days on Augmentin. She was also swabbed for COVID, which was found to be negative. At baseline, she can transfer from bed to wheelchair and is extremely weak, but her mentation has been getting worse after the incident. In the emergency room at [facility], she was started on antibiotics and given normal saline and admitted for further workup. Neurology was consulted because of continued altered mental status. ALLERGIES: NO KNOWN DRUG ALLERGIES. HOME MEDICATIONS: Megace, insulin, Remeron, magnesium oxide, Actos, gabapentin, Seroquel, and Pepcid. PAST MEDICAL HISTORY: Chronic pressure ulcers, colon carcinoma, protein-calorie malnutrition, hypertension, major depression, PUD, and anemia. PAST SURGICAL HISTORY: Hemicolectomy with primary anastomosis, left arm graft. FAMILY HISTORY: Significant for diabetes mellitus. SOCIAL HISTORY: Drinks 1 to 2 glasses of wine, but quit 2 to 3 weeks ago. Denies smoking, alcohol, or illegal drug use. REVIEW OF SYSTEMS: Unobtainable due to mental status. - Objective Vital Signs & Weight: Vital Signs (12 hours) Temp Pulse Ox 10/07/19 04:24 98.3 F 10/07/19 01:46 98 10/07/19 00:23 98.1 F 10/06/19 22:05 99 10/06/19 20:00 98 10/06/19 19:00 100 Weight Admit Weight 44.135 kg Weight 46.856 kg Most Recent Monitor Data Heart Rate from ECG 101 NIBP 108/53 NIBP BP-Mean 71 Respiration from ECG 16 SpO2 93 I&O: 10/05/19 10/06/19 10/07/19 06:59 06:59 06:59 Intake Total 680 200 Balance 680 200 - Physical Examination patient appears agitated, rocking side to side in the bed gripping the rail HEENT: Normocephalic Respiratory: no wheezing, clear to auscultation bilateral diminished breath sounds at bases bilaterally Cardiovascular: RRR 1/6 systolic murmur Gastrointestinal: soft, non-tender, no distention Musculoskeletal: no edema, pulses present NEUROLOGICAL: Mental status; the patient is alert, awake, does not follow commands, does not maintain eye contact. She is able to track and is alert and is not oriented to person, place, or time. Cranial nerves; pupils are round and reactive to light. Face symmetric. Tongue midline. Moves neck in both directions. Motor; muscle tone is normal. Bulk is decreased. Spontaneous movement of all 4 extremities seen. Sensory, withdraws all 4 extremities to nailbed pressure. Reflexes symmetric bilaterally. Cerebellar, did not cooperate with exam. Gait deferred due to the patient's safety reason. DATA REVIEWED: I reviewed the labs, which were significant for hyperglycemia, hyponatremia, and leukocytosis. ASSESSMENT AND PLAN: Ms. Vilma Mann is a 69-year-old female with end-stage renal disease, on hemodialysis, insulin-dependent diabetes mellitus, hypertension, admitted for sepsis. Altered mental status seems to be multifactorial secondary to infectious metabolic etiology; however, intracranial process cannot be completely ruled out. Recommend MRI of the brain to rule out acute intracranial process. Recommend EEG to rule out underlying seizure activity. Neuro checks every 4 hours. Continue home medications. Continue medical management per primary team. Further recommendations depend on the results of the testing. We will continue to follow. Thank you for the consult. Job ID: [id number] MTDD
[2019-10-07] MEDS ORDERED: Lorazepam 2 MG/ML VIAL SLOW IVP ONE (13:28)
--- NOTE | 2019-10-07 15:46 | RAD ---
Modified barium swallow HISTORY: Dysphagia. Feeding difficulties. FINDINGS: Exam was performed in conjunction with speech pathology. With initial swallow of thin liqui d, there was poor oral control and immediate spill and gross aspiration that was not spontaneously cleared by the patient. Patient refused to participate for additional swallows. The esophagus below the level of the hypopharynx was not evaluated. Please see separate detailed report from speech pathology. Transcribed Date/Time: 10/07/2019 3:55 PM
[2019-10-07] MEDS: Acetaminophen 325 MG TAB PO PRN (15:53)
[2019-10-07] MEDS: Fluconazole In NaCl,Iso-Osm 200 MG in Premix Bag 1 BAG IVPB SCH ×2 (15:54→17:55)
[2019-10-07] MEDS ORDERED: Dextrose 5 % And 0.9 % NaCl 1,000 ML IV SCH (16:15)
--- NOTE | 2019-10-07 16:27 | MRI ---
MRI BRAIN NONCONTRAST: DATE: 10/07/2019 HISTORY: 69-year-old female with altered mental status FINDINGS: There is no obstructive hydrocephalus. There is no midline shift or any other evidence of mass effect . There is no extra-axial fluid collection. There is a moderate degree of T2-hyperintensities in the cerebral white matter and giovanni, consistent with chronic ischemic white matter changes due to micr ovascular atherosclerosis. There is no evidence of recent hemorrhage or restricted diffusion. There is diffuse brain parenchymal volume loss. There is a left mastoid effusion. There is mucosal thickeni ng of bilateral sphenoid air cells. There is material that is T1 hyperintense and T2 hypointense filling the lumen of the right sphenoid air cell. There is a thin layer of fluid in the dependent por tion of the nasopharyngeal airway. IMPRESSION: 1) moderate chronic ischemic white matter changes and diffuse involutional changes of the brain. 2) no acute or aggressive findings of the brain identified. 3) left mastoid effusion. 4) sphenoid sinus mucosal disease. Consider ENT consultation.
--- NOTE | 2019-10-07 16:48 | EEG ---
Referring Physician: Alessandro JESSICA EEG # [id number] TEST TYPE: EXTENDED CONTINUOUS VIDEO EEG RECORDING REPORT: This EEG was performed using 24 channel Quick [employer] video digital EEG machine with 24 disc electrodes. This was an extended 2 hour 10 minutes of inpatient video EEG recording. Digital analysis of the EEG was done for spike and seizure detection which revealed no abnormalities. BACKGROUND: The posterior background rhythm was not observed. HYPERVENTILATION: Not performed PHOTIC STIMULATION: No response seen with hyperventilation. SLEEP: No stage change was observed. EEG DIAGNOSIS: 1.) Generalized irregular delta waves of triphasic morphology seen through out the recording. 2.) Absence of posterior background rhythm. CLINICAL INTERPRETATION: THIS EEG IS CONSISTENT WITH MODERATE GENERALIZED NONSPECIFIC CEREBRAL DYSFUNCTION. THIS CAN BE SEEN WITH METABOLIC ENCEPHALOPATHY. CLINICAL CORRELATION IS ADVISED. NO ICTAL OR INTERICTAL EPILEPTIFORM ABNORMALITIES SEEN DURING THE RECORDING. Botanical Technical Officer: YAN Emotionally Impaired Teacher: EEG.RADHA SOSA
[2019-10-07 16:53] LABS: Actual Bicarbonate (HCO3a) 19.6 mEq/L (22-28); Base Excess (BEa) -6.3 mEq/L (-2.0 to +3.0); CO2 Tension 40.4 mmHg (35.0-45.0); Calcium, Ionized 1.12 mmol/L (1.12-1.30); Carboxyhemoglobin (COHb) 0.9 gm% (0.0-3.0); Hemoglobin (Hb) 9.4 g/dL (12.0-16.0); Potassium - ABG Lab 3.08 mmol/L (3.70-5.30)
[2019-10-07 16:54] LABS: O2 Tension (PaO2), arterial 49.7 mmHg (> 80.0)
[2019-10-07 16:55] LABS: Puncture Site LRA
[2019-10-07] MEDS ORDERED: Sodium Chloride 0.9% 500 ML IV SCH (17:00)
[2019-10-07 17:17] LABS: #Basophils 0.1 thou/uL (0.0-0.2); #Eosinphils 0.1 thou/uL (0.0-0.7); #Lymphocytes 4.3 thou/uL (1.20-3.40); #Monocytes 0.6 thou/uL (0.11-0.59); #Neutrophils 10.9 thou/uL (1.40-6.50); %Basophils 0.4 % (0.0-1.0); %Eosinophils 0.4 % (0.0-10.0); %Lymphocytes 26.9 % (21.0-51.0); %Monocytes 3.7 % (0.0-10.0); %Neutrophils 68.7 % (42.0-75.0); Hemoglobin 7.5 g/dL (12.0-16.0); Mean Corpuscular HGB CONC 30.3 g/dL (32.0-36.0); Mean Corpuscular Hemoglobin 31.7 pg (27.0-31.0); Mean Platelet Volume 8.8 fL (7.4-10.4); Platelet Count 367 thou/uL (130-400); RBC Distribution Width 15.1 % (11.5-14.5); Red Blood Cell (RBC) Count 2.36 mill/uL (4.20-5.40); White Blood Cell (WBC) Count 15.8 thou/uL (4.8-10.8)
--- NOTE | 2019-10-07 17:21 | PDOC.BPN ---
- Brief Progress Note Code sally was called at approximately 1630. Patient was given 2 mg IV ativan before going down to MRI. Tele readers report patient went into afib (new-onset) while she was on the portable tele monitor. bulk fluids handler reports that she was talking prior to going into the MRI and was there for about 20 minutes, she was talking after she was brought out of the MRI. She was brought back to the IMCU. When they arrived to the floor, they mentioned to the nurses that they were not very responsive. Patient was found to not have a pulse and Louisa zavala was called. Chest compressions were started, patient received 2 rounds of epinephrine and ROSC was achieved. Patient was in sinus tachycardia. She was intubated and transitioned to the ICU. CXR showed correct placement of Endotracheal tube. EKG showed sinus tachycardia with [address] elevation in lead V3 and V4. ABG shows pH 7.303/pCo2 40.4/PO2 49.7/HCO3 19.6/Base excess -6.3. CBC, CMP, BNP, troponin ordered. Official CXR read.
--- NOTE | 2019-10-07 17:32 | RAD ---
CHEST ONE VIEW: 10/07/19 HISTORY: Code blue. COMPARISON: Chest radiograph prior day. FINDINGS: Large right effusion. Small left effusion. Moderate background pulmonary edema. The patient is intubated with endotracheal tube tip above the mode, 1.9 cm. No acute displaced rib fracture. The enteric tube tip is below the diaphragm although out of field of view. IMPRESSION: 1. Endotracheal tube tip above the mode, 1.9 cm. 2. Enteric tube tip below diaphragm although out of field of view. 3. Large effusions and background pulmonary edema. POS: HOME
[2019-10-07 17:36] LABS: Anisocytosis SLIGHT = 6-15 cells (100X) (0-5/hpf); MDiff Complete? YES; Macrocytosis SLIGHT = 6-15 cells (100X) (0-5/hpf); Platelet Morphology Comment Appears Adequate; Polychromasia SLIGHT = 2-3 cells (100X) (0-2/hpf)
[2019-10-07 17:38] LABS: ALT (SGPT) 14 U/L (8-55); AST (SGOT) 41 U/L (5-34); Albumin 2.7 g/dL (3.4-4.8); Alkaline Phosphatase 98 U/L (40-110); Anion Gap 19 mmol/L (10-20); BUN (Urea Nitrogen) 9 mg/dL (9.8-20.1); Bilirubin, Total 0.3 mg/dL (0.2-1.2); Calc. Creatinine Clearance 24 mL/min (70-130); Calcium 8.1 mg/dL (7.8-10.44); Carbon Dioxide 20 mmol/L (23-31); Chloride 99 mmol/L (98-107); Estimated GFR-MDRD 31; Globulin 4.1 g/dL (2.4-3.5); Glucose 131 mg/dL (80-115); Protein, Total 6.8 g/dL (6.0-8.3); Sodium 134 mmol/L (136-145)
[2019-10-07 18:03] LABS: CKMB 8.3 ng/mL (0-6.6)
--- NOTE | 2019-10-07 18:04 | PRG ---
DATE OF SERVICE: 10/07/2019 CHIEF COMPLAINT: Code blue. HISTORY OF PRESENT ILLNESS: I have reviewed all documentation done by the resident provider, and I have discussed the case and management of this patient. I agree with all of their documentation unless otherwise stated in the following attestation. Ms. Mann was noted to be unresponsive following her MRI this afternoon. Per report from the wind turbine technician, the patient was communicating before going into the MRI scanner. She was off telemetry monitoring during the MRI and he noted that she was nonresponsive after coming out of the MRI scanner while transporting the patient back to the room. The patient had received 2 mg Ativan one time dose IV at approximately 1549 hours prior to her MRI to help with agitation. Upon return to her room, she was noted to be in respiratory arrest and pulseless. CPR was started before the patient was attached to the monitor and a pre-code heart rhythm was not identified. She received 2 amps of epinephrine and ROSC was achieved. She was intubated. PHYSICAL EXAMINATION: GENERAL: Nonresponsive. EENT: Pupils fixed, minimally responsive to light. CARDIOVASCULAR: Tachycardic rate, regular rhythm. No new murmurs noted. PULMONARY: Coarse breath sounds throughout bilaterally. Breath sounds auscultated in both lung jaimes. NEUROLOGIC: GCS is 3. LABORATORY FINDINGS: Most labs are pending at this time. Blood gas post intubation; pH 7.3, pCO2 of 40.4, pO2 of 49.7. Bicarb 19.6, glucose 142. PROCEDURE NOTE: Endotracheal intubation: The patient was emergently intubated at bedside using a #3 GlideScope blade. A 7.5 cm endotracheal tube was easily passed through the vocal cords under direct visualization and advanced to 23 cm at the lips. Bilateral breath sounds were auscultated postprocedurally. Tube was secured in place. Postprocedure chest x-ray shows tip of the endotracheal tube at approximately 2 cm above the mode. ASSESSMENT: Ms. Mann is an unfortunate 69-year-old woman with multiple chronic comorbidities, who returned from MRI and was found to be unresponsive and without pulse. We achieved return of spontaneous circulation shortly after the code was called. However, there is about a 20 to 30-minute window, during which time she may have lost her pulse and we cannot determine how long she was in cardiac and respiratory arrest. PLAN: 1. Acute hypoxic respiratory failure secondary to aspiration pneumonia. This may have been compounded by the Ativan she received prior to the MRI. She is currently intubated on mechanical ventilation. The patient's has been updated. We will continue IV antibiotics. Pulmonology has been consulted and we will await further recommendations. 2. Status post ROSC. Cardiac arrest likely due to acute hypoxic respiratory distress. 3. Metabolic encephalopathy. We are still unsure of the etiology at this time. The patient has been becoming progressively more altered during this hospital stay. 4. End-stage renal disease. 5. Insulin-dependent diabetes. DISPOSITION: Her overall prognosis at this time is guarded. The patient's has been updated of her status. Critical Care has been consulted at this time. Approximately 45 minutes of critical care time were spent with this patient excluding endotracheal intubation and running the CODE. Job ID: [id number] MTDD
[2019-10-07] MEDS ORDERED: Sodium Chloride 0.9% 500 ML IVPB SCH (18:45)
[2019-10-07 20:16] LABS: Troponin I 0.044 ng/mL (< 0.028)
[2019-10-08] MEDS: metroNIDAZOLE 500 MG in Premix Bag 1 BAG IVPB SCH ×2 (02:04→11:26)
[2019-10-08 03:38] VITALS: BP 96/52
--- NOTE | 2019-10-08 03:39 | CON ---
DATE OF CONSULTATION: 10/07/2019 HISTORY OF PRESENT ILLNESS: Ms. Mann is a 69-year-old female, who was discharged on 09/28 and re-admitted on 10/03. Prior to that, she was discharged on July 15 and re-admitted on September 25. Reviewing old records, it appears that she has been in the hospital as much or more than she has been out of the hospital. She presented this admission with altered mental status. She has end-stage renal disease. She has been seen by Neurology. She was dialyzed this morning, had a long EEG procedure, and then went to MRI. She had an MRI and then was pulled out of the MRI. It was noted that the patient was not responsive on arrival after the MRI. CPR was started, and the patient was resuscitated. PAST MEDICAL HISTORY: Remarkable for, 1. History of very sedentary lifestyle with multiple chronic pressure ulcers. 2. History of colon cancer. 3. History of protein-calorie malnutrition. 4. History of depression. 5. Hypertension. 6. Ulcer disease in the past. 7. History of anemia. 8. History of hemicolectomy. 9. History of vascular access procedures. 10. Diabetes. 11. History of multiple hospital admissions as mentioned. 12. History of choking on a hamburger while flying, leading to CPR on an airplane and eventual clearing of her airway and she was hospitalized at [facility] in [place]. 13. Chronic kidney disease. FAMILY HISTORY: Positive for diabetes. SOCIAL HISTORY: No current smoking or drinking. REVIEW OF SYSTEMS: Not obtainable. PHYSICAL EXAMINATION: VITAL SIGNS: Blood pressure is 87/50, heart rate is 88, and respiratory rate is 20. HEENT: Pupils are sluggish. NECK: Supple. LUNGS: Clear anteriorly. HEART: Regular rhythm. ABDOMEN: Soft and nontender. EXTREMITIES: Without clubbing, cyanosis, or edema. LABORATORY DATA: White count 15.8, hemoglobin 7.5, and platelets 367. Sodium 134, potassium 4, chloride 99, bicarb 20, BUN 9, and creatinine 1.67. PH 7.3, CO2 of 40, and PO2 of 49. IMPRESSION: Status post code during or after the MRI of unclear etiology. Multiple medical problems, making unclear as to why she had a cardiorespiratory arrest. Apparently, she was talking going into the MRI and then her code was discovered on arrival back on the floor. It is unclear how long she was down. We will be happy to follow the other physicians caring for. TIME SPENT: This is a 70-minute consult, 50% of the time spent on the unit coordinating care. Job ID: [id number] MTDArabella
[2019-10-08 04:26] LABS: #Eosinphils 0.1 thou/uL (0.0-0.7); #Lymphocytes 0.9 thou/uL (1.20-3.40); #Monocytes 1.6 thou/uL (0.11-0.59); #Neutrophils 14.9 thou/uL (1.40-6.50); %Basophils 0.2 % (0.0-1.0); %Eosinophils 0.3 % (0.0-10.0); %Lymphocytes 5.2 % (21.0-51.0); %Monocytes 8.9 % (0.0-10.0); %Neutrophils 85.3 % (42.0-75.0); Hemoglobin 8.5 g/dL (12.0-16.0); Mean Corpuscular HGB CONC 29.1 g/dL (32.0-36.0); Mean Corpuscular Hemoglobin 31.5 pg (27.0-31.0); Mean Platelet Volume 8.8 fL (7.4-10.4); Platelet Count 337 thou/uL (130-400); RBC Distribution Width 15.4 % (11.5-14.5); White Blood Cell (WBC) Count 17.5 thou/uL (4.8-10.8)
[2019-10-08 04:59] LABS: Anion Gap 23 mmol/L (10-20); BUN (Urea Nitrogen) 13 mg/dL (9.8-20.1); Calc. Creatinine Clearance 21 mL/min (70-130); Calcium 7.8 mg/dL (7.8-10.44); Carbon Dioxide 16 mmol/L (23-31); Chloride 101 mmol/L (98-107); Estimated GFR-MDRD 26; Glucose 175 mg/dL (80-115); Potassium 3.8 mmol/L (3.5-5.1); Sodium 136 mmol/L (136-145)
[2019-10-08 05:16] LABS: Troponin I 0.244 ng/mL (< 0.028)
[2019-10-08 05:25] LABS: Actual Bicarbonate (HCO3a) 19.6 mEq/L (22-28); Base Excess (BEa) -3.7 mEq/L (-2.0 to +3.0); CO2 Tension 28.7 mmHg (35.0-45.0); Carboxyhemoglobin (COHb) 1.6 gm% (0.0-3.0); Hemoglobin (Hb) 8.3 g/dL (12.0-16.0); O2 Tension (PaO2), arterial 64.4 mmHg (> 80.0); Potassium - ABG Lab 3.63 mmol/L (3.70-5.30); pH, Arterial 7.45 (7.35-7.45)
[2019-10-08 05:29] LABS: ALV-art Gradient 184.925 (0-20); Puncture Site RBR
[2019-10-08] MEDS ORDERED: Ventilator Sedation Protocol 1 EACH FS SCH (06:15)
[2019-10-08] MEDS ORDERED: fentaNYL Citrate/PF 2,000 MCG in Sodium Chloride 0.9% 60 ML IV SCH (06:25)
[2019-10-08] MEDS ORDERED: Propofol 1,000 MG/100 ML VIAL IV PRN (06:25)
[2019-10-08] MEDS ORDERED: Fentanyl BOLUS 250 ML IVPB PRN (06:25)
[2019-10-08] MEDS ORDERED: Morphine 2 MG/ML SYRINGE SLOW IVP PRN ×2 (06:25→13:47)
[2019-10-08] MEDS ORDERED: DISCONTINUE PREVIOUS NARCOTIC PAIN MEDICATIONS AND BENZODIAZEPINES FS SCH (06:25)
[2019-10-08] MEDS ORDERED: Lorazepam 2 MG/ML VIAL SLOW IVP PRN ×2 (06:25→13:46)
[2019-10-08] MEDS ORDERED: Propofol BOLUS 1,000 MG/100 ML VIAL IV PRN (06:25)
--- NOTE | 2019-10-08 07:14 | PDOC.FM ---
- Subjective Subjective: is not at bedside this morning. Patient is intubated this morning, eyes opening spontaneously, blinks to touch. Eyes do not track. Pupils minimally responsive, does not withdraw to pain. - Objective Vital Signs & Weight: Vital Signs (12 hours) Temp Pulse Resp BP Pulse Ox 10/08/19 06:00 28 H 10/08/19 05:00 98.6 F 10/08/19 04:00 22 H 10/08/19 03:37 90 96/52 L 10/08/19 02:00 19 10/08/19 01:48 93 99/60 10/08/19 00:00 24 H 10/07/19 22:00 16 10/07/19 21:16 87 87/53 L 10/07/19 20:00 16 95 Weight Admit Weight 44.135 kg Weight 49.8 kg Most Recent Monitor Data Heart Rate from ECG 87 NIBP 96/56 NIBP BP-Mean 69 Respiration from ECG 24 SpO2 96 I&O: 10/07/19 10/08/19 10/09/19 06:59 06:59 06:59 Intake Total 200 1766 Output Total 920 Balance 200 846 Result Diagrams: 10/08/19 03:17 10/08/19 03:17 Phys Exam - Physical Examination Intubated, lying in bed Neck: no nodes, no JVD, supple inspiratory crackles bilat, decreased breath sounds at bases Cardiovascular: RRR, no significant murmur Gastrointestinal: soft, no distention Musculoskeletal: no edema, pulses present Neurological: moves all 4 limbs AOx0, eyes do not track, eyes open spontaneously, pupils minimally reactive patient does not withdraw to pain Skin: cap refill <2 seconds Dx/Plan (1) Acute and chronic respiratory failure with hypoxia Code(s): J96.21 - ACUTE AND CHRONIC RESPIRATORY FAILURE WITH HYPOXIA Status: Acute (2) Hyponatremia Code(s): E87.1 - HYPO-OSMOLALITY AND HYPONATREMIA Status: Chronic (3) HTN (hypertension) Code(s): I10 - ESSENTIAL (PRIMARY) HYPERTENSION Status: Chronic (4) Sacral ulcer Code(s): L98.429 - NON-PRESSURE CHRONIC ULCER OF BACK WITH UNSPECIFIED SEVERITY Status: Chronic (5) Sepsis due to pneumonia Code(s): J18.9 - PNEUMONIA, UNSPECIFIED ORGANISM; A41.9 - SEPSIS, UNSPECIFIED ORGANISM Status: Acute (6) DM type 2 (diabetes mellitus, type 2) Status: Chronic Qualifiers: Diabetes mellitus usp insulin use: with usp use Diabetes mellitus complication status: with kidney complications Diabetes mellitus complication detail: with chronic kidney disease Chronic kidney disease stage : stage 4 (severe) Qualified Code(s): E11.22 - Type 2 diabetes mellitus with diabetic chronic kidney disease; N18.4 - Chronic kidney disease, stage 4 (severe ); Z79.4 - FCI (current) use of insulin (7) ESRD (end stage renal disease) Code(s): N18.6 - END STAGE RENAL DISEASE Status: Chronic (8) Macrocytic anemia Code(s): D53.9 - NUTRITIONAL ANEMIA, UNSPECIFIED Status: Chronic (9) Protein-calorie malnutrition, severe Code(s): E43 - UNSPECIFIED SEVERE PROTEIN-CALORIE MALNUTRITION Status: Chronic - Plan Plan: Acute metabolic encephalopathy 2/2 Sepsis from aspiration PNA Acute hypoxic respiratory failure - Code blue 10/05: pt stopped breathing and O2 to 60s. Resolved with back thrusts and finger sweep. Moved to IMCU - Code blue 10/06: Pulseless, ROSC after CPR with 2 rounds epi, intubated and moved to ICU - Antibiotics: IV levaquin and flagyl. Pharmacy is assisting with doseage as ESRD pt on dialysis - Blood cx: NG @ 48 hr - Barium swallow failed 10/06 - Palliative consulted this morning for goals of care, family support. - Neurology consulted 10/06 for waxing/waning encephalopathy, appreciate recs -MRI and EEG 10/06: MRI no acute findings, EEG showed metabolic encephalopathy -After Code blue 10/06, possible anoxic brain injury -CXR 10/07: Large Rt pleural effusion, left small pleural effusion; pulmonary edema -Pulmonology, Dr. Cheung consulted 10/06, appreciate recs ESRD on TTS HD - Dr. Bird, nephrology, appreciate recs Anion Gap -Anion gap of 19, pH of 7.45 on ABG this AM -Lactic acid pending Yeast UTI - Continue IV diflucan - Urine Cx showing yeast IDDM2 - mild SSI, accuchecks q4h - Decreased Novolin to 4u BID, stopped pioglitazone Hyponatremia, resolved - Na 133 -> 134 -> 136 - Continue to trend Sacral Wound - Wound care consulted Anemia of Chronic disease, stable - chronic anemia 2/2 to CKD and iron deficiency, continue to monitor Physical Deconditioning - PT/OT/CM Protein/calorie Malnutrition - Case Picker consulted, appreciate recs Anxiety - held home meds DVT ppx: Heparin Diet: NPO Code Status: DNR IVF: SL PCP: Dr Nguyen, TAMP Lines: Rt upper forearm peripheral IV Mcnamara in place Intubated: PIP/PEEP 10/5 Discharge planning: ICU, intubated, continuing IV antibiotics. Overall poor prognosis. Palliative care consulted for goals of care. Addendum - Attending - Attending Attestation Date/Time: 10/08/19 1121 I personally evaluated the patient and discussed the management with Dr. Donald. I agree with the History, Examination, Assessment and Plan documented above with any addition or exceptions noted below. Patient is having myoclonic jerks with minimally responsive pupils. She is off sedation and likely has an anoxic brain injury as a result of the CODE yesterday. not at bedside at time of my exam but per resident, he stated she would not want to be on a ventilator ferry terminal agent or have trach/PEG placed. He desired her to be made DNAR. Will follow up with him later this morning to discuss further care and if he feels the patient would want care withdrawn at this time. Prognosis is guarded at this time.
[2019-10-08 08:22] LABS: Troponin I 0.301 ng/mL (< 0.028)
[2019-10-08] MEDS: Magnesium Oxide 400 MG TAB PO SCH (08:37)
[2019-10-08] MEDS: Famotidine 20 MG TAB PO SCH (08:37)
[2019-10-08] MEDS: Megestrol Acetate 40 MG TAB PO SCH (08:37)
[2019-10-08] MEDS: Heparin 5,000 UNITS/ML VIAL SC SCH (08:44)
[2019-10-08] MEDS ORDERED: Insulin Regular 300 UNITS/3 ML VIAL SC SCH (09:00)
[2019-10-08] MEDS ORDERED: Fluconazole 100 MG TAB PO SCH (09:00)
--- NOTE | 2019-10-08 11:32 | PRG ---
DATE OF SERVICE: 10/08/2019 SUBJECTIVE: A 69-year-old female being seen for end-stage renal disease. The patient is resting OBJECTIVE: GENERAL: The patient is awake, alert. VITAL SIGNS: Afebrile, pulse 75, breathing 16, blood pressure 105/55. HEENT: Head normocephalic and atraumatic. Eyes intact, no ulcers. Nose intact , no ulcers. Ears intact, no ulcers. NECK: Supple. No JVD. CHEST: Symmetrical and clear. CARDIOVASCULAR: Shows S1 and S2, no rub, no murmur. GASTROINTESTINAL: Abdomen is soft, bowel sounds positive. EXTREMITIES: Show no edema or ulcers. SKIN: Shows no rash or petechiae. MUSCULOSKELETAL: Shows no joint swelling or stiffness. GENITOURINARY: Shows no Mcnamara or CVA tenderness. LABORATORY DATA: Reviewed. ASSESSMENT: 1. Stage 6 chronic kidney disease, prognosis is poor . 2. Anemia, stable. Medication based on GFR appropriate. Job ID: [id number] MTDD
[2019-10-08 11:41] LABS: Lactic Acid 2.4 mmol/L (0.5-2.2)
[2019-10-08 12:17] LABS: Troponin I 0.351 ng/mL (< 0.028)
--- NOTE | 2019-10-08 13:01 | PDOC.PALCO ---
Palliative Care Consult - Consult Details Requesting Physician: Dr Donald Reason for Consult: goals of care, family support - Pertinent HPI 69 year old female who has multiple morbidities and recently transitioned to [facility]. She was found to be have an onset of altered mental status, tachycardia and hypoxic and was transported to [facility] for further evaluation. There were no known triggers for symptoms and no mitigating factors. Admitted for further medical management. Decline continued to occur and patient subsequently intubated and non responsive, in CCU Prior to recent decline requiring admission to the [place] she was inflight to see her mother in [place] and had a choking episode on the plane requiring CPR and emergency landing in [facility] and return to her baseline, she refused transport to the hospital. She and her stayed in a hotel and she experienced collapse with absence of breath requiring CPA and transfer to [facility]. Baseline is assistance with ADL, and wheelchair bound. - Pertinent PMH Chronic wound to coccyx, Colon Ca, DM II, CKD 5, HTN, PUD, anemia, Heart Failure - Social History Smoking Status: Former smoker Smoking: quit greater than 1 year Alcohol Use: rarely Drug Use History: none Living Situation: correction resident - Allergies Allergies/Adverse Reactions: Allergies Allergy/AdvReac Type Severity Reaction Status Date / Time No Known Drug Allergies Allergy Verified 10/04/19 14:57 - Subjective intubated, encephalopathic - ROS Non Response: due to endotracheal tube, due to mental status - Objective Vital Signs: Vital Signs - Most Recent Temp Pulse Resp BP Pulse Ox 98.7 F 84 17 96/52 L 95 10/08/19 07:00 10/08/19 07:35 10/08/19 10:00 10/08/19 03:37 10/07/19 20:00 Palliative Performance Scale: 20 - Physical Exam Constitutional: encephalitic, ill appearing HEENT: moist MMs Deviation from normal: Mechanical ventilation Cardiovascular: RRR Gastrointestinal: soft, non-tender, positive bowel sounds Genitourinary: raymond catheter Musculoskeletal: pulses present, diffuse muscle atrophy Skin: fragile Deviation from normal: encephalopathic - Problem List (1) Acute and chronic respiratory failure with hypoxia Code(s): J96.21 - ACUTE AND CHRONIC RESPIRATORY FAILURE WITH HYPOXIA Current Visit: Yes Status: Acute (2) Acute kidney injury superimposed on CKD Code(s): N17.9 - ACUTE KIDNEY FAILURE, UNSPECIFIED; N18.9 - CHRONIC KIDNEY DISEASE, UNSPECIFIED Current Visit: No Status: Acute (3) Palliative care encounter Code(s): Z51.5 - ENCOUNTER FOR PALLIATIVE CARE Current Visit: No Status: Acute (4) Systolic CHF Code(s): I50.20 - UNSPECIFIED SYSTOLIC (CONGESTIVE) HEART FAILURE Current Visit: No Status: Chronic - Plan/Recommendations Plan: understanding of poor prognosis, he has relayed that he believes his is suffering and desires no further interventions and wishes to have a compassionate extubation with comfort measures. has requested [facility] wrap in care for compassionate extubation. Dr Donald aware. Dr Nguyen has spoken with family. Family states they have said goodby and do not wish to be present. Please also refer to Palliative Care notes in note section [40] minutes spent on this encounter with >50% of the time in counseling and coordination of care. Thank you for this very appropriate consult.
--- NOTE | 2019-10-08 13:01 | PDOC.BPN ---
<Michelle Nguyen - Last Filed: 10/08/19 14:05> - Brief Progress Note I spoke with common law of 30 years, Peter Heard, and he endorsed understanding of his 's condition which is grim and with poor prognosis after speaking with Neurologist regarding myoclonus state. I also spoke with each of her three sons, 2 of which live in [place], and one who lives here and explained her condition and prognosis. I did report to them we have not confirmed brain activity at this point but and sons are all in agreement that she would not have wanted any further treatment. Her goal was to walk again which she had noted to me several times in clinic. also reports she enjoyed eating and living at home, highly resistant to ever being admitted to a nursing facility. After and sons discussed her goals and the likelihood of her ever meeting goals of returning to her baseline with underlying chronic anemia, protein calorie malnutrition, ESRD, DM2 (uncontrolled ), sacral decubitus ulcers, recurrent infections, and worsening deconditioning over the last few months, they discussed withdrawal of care. They are all in agreement and I confirmed this with each of them. She has a DNR in place and is transitioning to hospice care. None of the family members want to be present at the time of withdrawal, they would like to have updates and be notified at time of . <Nahid Joshua - Last Filed: 10/08/19 14:26> - Brief Progress Note ATTENDING ADDENDUM: Agree with above. Neurology and Pulm/CCU notified of family's decision.
[2019-10-08 13:03] VITALS: TEMP 100.1
[2019-10-08] MEDS ORDERED: Scopolamine 1.5 mg/72 hour Patch TD SCH (13:15)
[2019-10-08] MEDS ORDERED: Hyoscyamine Sulfate SL 0.125 mg Tablet PO PRN (13:49)
--- NOTE | 2019-10-08 14:49 | PDOC.HOSPP ---
- Subjective Encounter Date: 10/08/19 Subjective: NEUROLOGY PROGRESS NOTE Patient went into cardiac arrest yesterday and now having myoclonic jerks highly suspicious for anoxic brain injury. - Objective Vital Signs & Weight: Vital Signs (12 hours) Temp Pulse Resp BP 10/08/19 14:37 94 10/08/19 14:00 22 H 10/08/19 12:00 100.1 F H 29 H 10/08/19 10:00 17 10/08/19 08:00 29 H 10/08/19 07:35 84 10/08/19 07:00 98.7 F 10/08/19 06:00 28 H 10/08/19 05:00 98.6 F 10/08/19 04:00 22 H 10/08/19 03:37 90 96/52 L Weight Admit Weight 97 lb 4.8 oz Weight 109 lb 12.643 oz Most Recent Monitor Data Heart Rate from ECG 86 NIBP 97/52 NIBP BP-Mean 67 Respiration from ECG 19 SpO2 100 I&O: 10/07/19 10/08/19 10/09/19 06:59 06:59 06:59 Intake Total 200 1766 240 Output Total 920 Balance 200 846 240 Result Diagrams: 10/08/19 03:17 10/08/19 03:17 Additional Labs: Accuchecks 10/08/19 10/07/19 13:09 16:33 POC Glucose 170 H 142 H Radiology Reviewed by me: Yes EKG Reviewed by me: Yes Hospitalist ROS - Review of Systems ROS unobtainable: due to mental status - Exam General Appearance: ill appearing Eye: PERRL Eye - other findings: corneals and gag positive ENT: normocephalic atraumatic Neck: supple Respiratory: CTAB Gastrointestinal: soft Extremities: no cyanosis Skin: normal turgor Neurological - other findings: positive muscle twitching, minimal withdrawal to nail bed pressure Psychiatric: not oriented Hosp A/P (1) Anoxic brain injury Status: Acute (2) Elevated alkaline phosphatase level Code(s): R74.8 - ABNORMAL LEVELS OF OTHER SERUM ENZYMES Status: Chronic (3) History of colon cancer Code(s): Z85.038 - PERSONAL HISTORY OF MALIGNANT NEOPLASM OF LARGE INTESTINE Status: Chronic (4) Macrocytic anemia Code(s): D53.9 - NUTRITIONAL ANEMIA, UNSPECIFIED Status: Chronic (5) Protein-calorie malnutrition, severe Code(s): E43 - UNSPECIFIED SEVERE PROTEIN-CALORIE MALNUTRITION Status: Chronic (6) Sacral ulcer Code(s): L98.429 - NON-PRESSURE CHRONIC ULCER OF BACK WITH UNSPECIFIED SEVERITY Status: Chronic (7) Systolic CHF Code(s): I50.20 - UNSPECIFIED SYSTOLIC (CONGESTIVE) HEART FAILURE Status: Chronic - Plan 69 year old s/p cardiac arrest seen yesterday for altered mental status. MRI brain and EEG negative prior to code. She has now developed postanoxic myoclonus. She does have partially preserved brain stem reflexes and long tract signs but given her condition, the chances of meaningful functional recovery are grave. The current status discussed with the primary team. Continue medical management per primary team.
--- NOTE | 2019-10-08 16:14 | PRG ---
DATE OF SERVICE: 10/08/2019 SUBJECTIVE: Vilma Mann is having myoclonic jerking this morning, mainly with her eyes. OBJECTIVE: VITAL SIGNS: Heart rate in the 90s, respiratory rate is in the 20s, and blood pressure is 108/56. LUNGS: Clear. HEART: Regular rhythm. ABDOMEN: Soft. EXTREMITIES: Without asymmetry. LABORATORY DATA: White count 17.5, hemoglobin 8.5, and platelets 337. Sodium 136, potassium 3.8, chloride 101, bicarbonate 16, BUN 13, and creatinine 1.94. IMPRESSION: Possible anoxic brain injury. I am told family wants to consider withdrawal of care. I would support this decision. Given her neurological exam today, it is very unlikely she will recover to be functional and she was marginally functional prior to this. CRITICAL CARE TIME: 30 minutes. Job ID: [id number]
--- NOTE | 2019-10-08 18:02 | PDOC.BPN ---
- Brief Progress Note Spoke with at around 1625 and let him know we were extubating patient. He again does not want to be present and is good with extubation.
--- NOTE | 2019-10-08 18:06 | PDOC.BPN ---
- Brief Progress Note Care transitioned to hospice care, however was present for extubation and consequently was there for time of . Patient terminally extubated around 1630, patient had agonal breathing, sats steadily decreased, pulse unidentifiable shortly after and only PEA noted on monitor, eventually asystole recognized on monitor and no pulse identified. Time of was 1656. Hospice team present and will do summary and certificate per hospice member. Notified of .
--- NOTE | 2019-10-08 23:08 | DIS ---
DATE OF ADMISSION: 10/04/2019 DATE OF DISCHARGE: 10/08/2019 RESIDENT: Daisy Donald MD ADMITTING ATTENDING: Dr. Tone Augustin. DISCHARGE ATTENDING: Dr. Nahid Joshua. CONSULTS: 1. Nephrology, Dr. Bills on 10/04/2019. 2. Neurology, Dr. Celia Soto on 10/07/2019. 3. Pulmonology, Dr. Whaley on 10/07/2019. PROCEDURES: 1. Chest x-ray on 10/04/2019, findings, heart size is prominent, but stable. Bibasilar infiltrates with accompanying effusions. Right greater than left are seen again. No pneumothoraces are identified. 2. Chest x-ray on 10/06/2019, impression, enlarging bilateral pleural effusions. Multifocal airspace opacities may reflect ARDS, edema, or multifocal infection. 3. Modified barium swallow study on 10/07/2019 with initial soft, thin liquid. There was poor oral control and immediate spilling, gross aspiration that was not spontaneously cleared by the patient. The patient refused to participate for additional swallows. The esophagus below the level of the hypopharynx was not evaluated. 4. Brain MRI on 10/07/2019, impression, moderate chronic ischemic white matter changes and diffuse involutional changes of the brain. No acute findings of the brain identified. Left mastoid effusion. Sphenoid sinus mucosal disease. Consider ENT consultation. 5. Chest x-ray on 10/07/2019, impression, endotracheal tube tip above the mode 1.9 cm. Enteric tube tip below the diaphragm, although out of [id number]. Large effusions and background pulmonary edema. PRIMARY DIAGNOSES: 1. Acute metabolic encephalopathy secondary to sepsis. 2. Sepsis from aspiration pneumonia. 3. Acute hypoxic respiratory failure secondary to aspiration pneumonia. SECONDARY DIAGNOSES: 1. End-stage renal disease, on hemodialysis. 2. Anion gap. 3. Candidal urinary tract infection. 4. Insulin-dependent diabetes mellitus, type 2. 5. Hyponatremia. 6. Sacral ulcers. 7. Anemia of chronic disease. 8. Severe physical deconditioning. 9. Severe protein calorie malnutrition. 10. Anxiety. DISCHARGE MEDICATIONS: None. DISCONTINUED MEDICATIONS: All her medications were discontinued. HISTORY OF PRESENT ILLNESS AND HOSPITAL COURSE: This is a 69-year-old female with ESRD and insulin-dependent diabetes, who presented for altered mental status. The patient was at [facility], and was found to be altered, tachycardic and hypoxic to the 70s. When she was brought to the emergency department, she was unable to provide interval history. The patient had been in [place] 1 week prior to last hospital admission for a dental procedure and was planning to fly from [place] to [place] for her mother's . At that time, she choked on a hamburger during her flight and CPR was started on the plane. The patient coughed up a hamburger during CPR and rapidly improved. Emergency landing was made in [place] and the patient's vitals were normal, but she refused to go to the hospital for further care. Later that evening, she collapsed and started breathing in her hotel and CPR was initiated by her . The patient then went to [facility]. The patient was discharged to home that time 2 days prior to that admission on Augmentin. During her last day, she was treated for sepsis secondary to pneumonia. She was started on vancomycin and cefepime and was then transitioned to azithromycin. The patient was swabbed for COVID and was found to be negative. She was also found to have a yeast UTI and was discharged with 2 weeks of Diflucan. She went to [facility]. At the patient's baseline, she can transfer from bed to wheelchair. She has some chronic sacral ulcers. In the ER, the patient was given DuoNeb, vancomycin, cefepime, and a liter of normal saline bolus. She had yeast that showed on her UA. Chest x-ray showed bibasilar infiltrates with effusion. Lactic acid was normal. Her white count was elevated to 19.5. The patient was continued on Levaquin and cefepime with renal dosing. Nephrology was consulted for her hemodialysis. The patient was also hyponatremic. While the patient was on the floor on October 05, she stops breathing and her O2 sats dropped to 60s. This happen while the patient was eating. used to dislodge food for mouth and she was moved to the [facility]. The patient subsequently had a Code Blue on 10/06. She is found to be pulseless on her way back from the [facility]. ROSC was obtained after CPR with 2 amps of epinephrine. The patient was intubated and transitioned to the ICU. The patient was continued on Levaquin and Flagyl after her first aspiration episode for aspiration pneumonia. Her blood cultures were found to have no growth to date. There is a barium swallow attempt to be studied to evaluate her aspiration, but she was unable to cooperate with the study. Neurology was consulted for her waxing and waning mentation. The MRI and EEG were done, which showed metabolic encephalopathy. However, after the Code Blue on 10/06, the patient was showing signs of likely anoxic brain injury. Her prognosis is discussed with her as well as her three sons. They all did not want her to continue on life support as they did not think that would be her wishes. She was terminally extubated on 10/08/2019 after being transitioned to inpatient hospice, shortly afterward. DISPOSITION: . DISCHARGE INSTRUCTIONS: The patient was discharged to inpatient hospice before she was terminally extubated. DIET: Not indicated. ACTIVITY: Not indicated. FOLLOWUP: Not indicated. Job ID: [id number]
[2019-10-09] MEDS ORDERED: Fluconazole 100 MG TAB PO SCH (17:00)
--- NOTE | 2019-10-11 12:22 | EKG ---
Test Reason : Blood Pressure : / mmHG Vent. Rate : 108 BPM Atrial Rate : 108 BPM P-R Int : 136 ms QRS Dur : 084 ms QT Int : 338 ms P-R-T Axes : 057 010 043 degrees QTc Int : 452 ms Sinus tachycardia Low voltage QRS Borderline ECG Confirmed by YENI ALICEA MD ([id number]), health editor ZENOBIA CAMPBELL ([id number]) on 10/11/2019 12:22:22 PM Referred By: Confirmed By:YENI ALICEA MD
== END 2019-10-08 16:52 | disposition expired | DRG 871 ==
LOC: ERS 08:38 → 2NO 14:34 → IMCU/EMU 10-06 18:56 → CCU 10-07 16:40
PROVIDERS: ADMIT Family Medicine; ATTEND Family Medicine
PROC: 5A1D70Z Performance of Urinary Filtration, Intermittent, Less than 6 Hours Per Day (ICD-10-PCS; principal; 2019-10-04)
PROC: 0BH17EZ Insertion of Endotracheal Airway into Trachea, Via Natural or Artificial Opening (ICD-10-PCS; 2019-10-07)
PROC: 5A1935Z Respiratory Ventilation, Less than 24 Consecutive Hours (ICD-10-PCS; 2019-10-07)
PROC: 5A12012 Performance of Cardiac Output, Single, Manual (ICD-10-PCS; 2019-10-07)
PROC: 3E033XZ Introduction of Vasopressor into Peripheral Vein, Percutaneous Approach (ICD-10-PCS; 2019-10-07)
DX: A41.9 Sepsis, unspecified organism (principal); G93.41 Metabolic encephalopathy; J69.0 Pneumonitis due to inhalation of food and vomit; J96.01 Acute respiratory failure with hypoxia; N18.6 End stage renal disease; E43 Unspecified severe protein-calorie malnutrition; B37.49 Other urogenital candidiasis; E87.1 Hypo-osmolality and hyponatremia; L97.319 Non-pressure chronic ulcer of right ankle with unspecified severity; I50.22 Chronic systolic (congestive) heart failure; I13.2 Hypertensive heart and chronic kidney disease with heart failure and with stage 5 chronic kidney disease, or end stage renal disease; N17.9 Acute kidney failure, unspecified; G93.1 Anoxic brain damage, not elsewhere classified; Z51.5 Encounter for palliative care; Z66 Do not resuscitate; E11.22 Type 2 diabetes mellitus with diabetic chronic kidney disease; D63.1 Anemia in chronic kidney disease; F41.9 Anxiety disorder, unspecified; E87.70 Fluid overload, unspecified; D50.9 Iron deficiency anemia, unspecified; L89.312 Pressure ulcer of right buttock, stage 2; L89.152 Pressure ulcer of sacral region, stage 2; E88.09 Other disorders of plasma-protein metabolism, not elsewhere classified; E11.65 Type 2 diabetes mellitus with hyperglycemia; I46.9 Cardiac arrest, cause unspecified; Z79.899 Other long term (current) drug therapy; Z90.710 Acquired absence of both cervix and uterus; Z68.20 Body mass index [BMI] 20.0-20.9, adult; Z99.2 Dependence on renal dialysis
CPT/HCPCS: 36415; 36416; 51701; 70551; 71045; 74230; 80048; 80053; 81003; 81015; 82140; 82550; 82553; 82805; 83605; 83690; 83880; 84145; 84484; 85025; 85379; 87040; 87086; 90935; 92950; 93005; 93010; 94002; 94003; 95712; 95816; 95819; 95957; 96365; 96368; A4353; G0257; J0171; J0692; J1450; J1630; J1644; J1815; J1956; J2060; J2270; J3370; J3490; J7620; S0179